=== PATIENT | female | born 1990 | race Caucasian/White ===

== ENCOUNTER 2016-10-14 13:07 | Inpatient (IN) | payer OTHER ==
[~2016-10-14] VITALS: Ht 154.9 cm; Wt 55.9 kg
[~2016-10-14 13:07] MED LIST: PRENTAB PO
[2016-10-14 13:09] VITALS: BP 126/58; PULSE 122; RESP 20; TEMP 99.1; O2SAT 97
--- NOTE | 2016-10-14 14:14 | PD ---
HPI Chief Complaint: Injury Time Seen by Provider: 14:14 Travel History International Travel<30 days: No Contact w/Intl Traveler<30days: No Traveled to known affect area: No History of Present Illness HPI 26-year-old female with PMH of IVDA, MRSA presents to the ED for evaluation of 3 day history of redness pain and swelling of the right foot. She has been ambulatory on the foot. Patient adamantly denies IV drug use in the area. She endorses fever and chills. Denies headache, dizziness, chest pain, shortness of breath, abdominal pain, nausea, vomiting. Complains of a "couple day" history of dysuria. Last injected Dilaudid 2 days ago. She's been treating at home with Tylenol and ibuprofen with no improvement of the symptoms. PFSH Past Medical History Cancer: No Cardiovascular Problems: No Diminished Hearing: No Endocrine: No Genitourinary: No Immune Disorder: No Musculoskeletal: No Neurologic: No Psychiatric: No Reproductive: No Respiratory: No Integumentary: Yes (CELLULITIS FROM IV DRUG USE) Immunizations Current: Yes ?: Not : 3 Para: 2 Miscarriage: 0 : 0 Past Surgical History Abdominal Surgery: No Cardiac Surgery: No Ear Surgery: No Endocrine Surgery: No Eye Surgery: No Genitourinary Surgery: No Gynecologic Surgery: No Oral Surgery: No Pacemaker: No Thoracic Surgery: No Other Surgery: Yes (I&D BILAT WRIST ABSCESSES) Social History Alcohol Use: No Tobacco Use: Yes (06/23 ppd) Substance Use: No (HX IV dilaudid DRUG USE-states daily) Allergies-Medications (Allergen,Severity, Reaction): Coded Allergies: Phenergan (Verified Allergy, Severe, HALLUCINATIONS, N&V, 10/14/16) Septra (Verified Allergy, Severe, HALLUCINATIONS, N&V, 10/14/16) Cipro (Verified Allergy, Intermediate, REDDENED ITCHY RASH, 10/14/16) *MDRO Multi-Drug Resistant Organism (Unverified Adverse Reaction, Unknown , 10/14/16) MRSA (fluid) - 08/2014 Reported Meds & Prescriptions Reported Meds & Active Scripts Active No Active Prescriptions or Reported Medications Review of Systems Except as stated in HPI: all other systems reviewed are Neg Physical Exam Narrative GENERAL: Well-nourished, well-developed anxious, tearful white female in no acute distress. SKIN: Focused skin assessment warm/dry. Multiple puncture wounds of the bilateral hands, wrists. Consistent with injection sites. HEAD: Normocephalic. EYES: No scleral icterus. No injection or drainage. NECK: Supple, trachea midline. No JVD or lymphadenopathy. CARDIOVASCULAR: Regular rate and rhythm without murmurs, gallops, or rubs. RESPIRATORY: Breath sounds clear and equal bilaterally. No accessory muscle use. GASTROINTESTINAL: Abdomen soft, non-tender, nondistended. Active bowel sounds. MUSCULOSKELETAL: No cyanosis. Patient is ambulatory and moves extremities spontaneously. FOCUSED RIGHT UPPER EXTREMITY EXAM: 2+ radial pulse there is a crusted puncture wound on the palmar aspect of the hand. There is superficial desquamation to the wrist and the underlying skin is pink and intact. No warmth, tenderness, edema. She maintains full, active, painless range of motion of the extremity. Cap refill less than 2 seconds. Sensation intact to light touch distally. FOCUSED RIGHT LOWER EXTREMITY EXAM: 2+ DP pulse via ultrasound. The dorsal aspect of the right foot is warm, erythematous, edematous and tender. There is a puncture wound on the proximal third of the foot surrounded by an area of fluctuance. No active drainage. The patient is able to wiggle the toes weekly. She is unable to flex the ankle secondary to pain. Cap refill less than 2 seconds. Sensation mildly diminished to light touch distally. BACK: Nontender without obvious deformity. No CVA tenderness. Data Data Last Documented VS Vital Signs Date Time Temp Pulse Resp B/P Pulse Ox O2 Delivery O2 Flow Rate FiO2 10/14/16 19:04 100.9 95 18 111/59 100 Room Air Orders Complete Blood Count With Diff (10/14/16 14:17) Blood Culture (10/14/16 14:17) Iv Access Insert/Monitor (10/14/16 14:17) Acetaminophen (Tylenol) (10/14/16 14:30) Comprehensive Metabolic Panel (10/14/16 14:17) Lactic Acid (10/14/16 14:17) Urinalysis - C+S If Indicated (10/14/16 14:17) Foot, Complete ([id number]) (10/14/16 14:23) Ed Urine Pregnancytest Poc (10/14/16 14:23) Piperacil-Tazo 4.5 Gm Premix (Zosyn 4.5 (10/14/16 14:23) Vancomycin Inj (Vancomycin Inj) (10/14/16 14:23) Ct Foot W Iv Contrast (10/14/16 ) Vascular Access Team Consult/P PRN (10/14/16 14:28) Sodium Chlor 0.9% 1000 Ml Inj (Ns 1000 M (10/14/16 15:00) Vascular Poc Ultrasound (10/14/16 ) Ketorolac Inj (Toradol Inj) (10/14/16 18:30) Hydromorphone Pf Inj (Dilaudid Pf Inj) (10/14/16 18:30) Potassium Chloride (Kcl) (10/14/16 18:45) Iohexol 350 Inj (Omnipaque 350 Inj) (10/14/16 19:00) Lidocai-Epi 1%-1:100,000 Inj (Xylocaine- (10/14/16 19:30) Abscess Culture And Gram Stain (10/14/16 19:26) Admit Order (Ed Use Only) (10/14/16 19:30) Labs Laboratory Tests Test 10/14/16 10/14/16 17:26 18:14 White Blood Count 5.1 TH/MM3 Red Blood Count 3.66 MIL/MM3 Hemoglobin 10.3 GM/DL Hematocrit 30.1 % Mean Corpuscular Volume 82.2 FL Mean Corpuscular Hemoglobin 28.0 PG Mean Corpuscular Hemoglobin 34.1 % Concent Red Cell Distribution Width 13.4 % Platelet Count 153 TH/MM3 Mean Platelet Volume 8.9 FL Neutrophils (%) (Auto) 87.5 % Lymphocytes (%) (Auto) 5.8 % Monocytes (%) (Auto) 4.6 % Eosinophils (%) (Auto) 1.5 % Basophils (%) (Auto) 0.6 % Neutrophils # (Auto) 4.5 TH/MM3 Lymphocytes # (Auto) 0.3 TH/MM3 Monocytes # (Auto) 0.2 TH/MM3 Eosinophils # (Auto) 0.1 TH/MM3 Basophils # (Auto) 0.0 TH/MM3 CBC Comment DIFF FINAL Differential Comment Sodium Level 137 MEQ/L Potassium Level 3.0 MEQ/L Chloride Level 102 MEQ/L Carbon Dioxide Level 26.8 MEQ/L Anion Gap 8 MEQ/L Blood Urea Nitrogen 7 MG/DL Creatinine 0.63 MG/DL Estimat Glomerular Filtration 113 ML/MIN Rate Random Glucose 87 MG/DL Lactic Acid Level 1.1 mmol/L Calcium Level 8.5 MG/DL Total Bilirubin 0.4 MG/DL Aspartate Amino Transf 42 U/L (AST/SGOT) Alanine Aminotransferase 81 U/L (ALT/SGPT) Alkaline Phosphatase 78 U/L Total Protein 7.2 GM/DL Albumin 3.1 GM/DL Urine Color YELLOW Urine Turbidity CLEAR Urine pH 6.5 Urine Specific [place] 1.034 Urine Protein TRACE mg/dL Urine Glucose (UA) NEG mg/dL Urine Ketones NEG mg/dL Urine Occult Blood SMALL Urine Nitrite NEG Urine Bilirubin NEG Urine Urobilinogen 4.0 MG/DL Urine Leukocyte Esterase NEG Urine RBC 2 /hpf Urine WBC 1 /hpf Urine Squamous Epithelial 2 /hpf Cells Urine Mucus MANY /lpf Microscopic Urinalysis Comment CULT NOT INDICATED MDM Medical Decision Making Medical Screen Exam Complete: Yes Emergency Medical Condition: Yes Differential Diagnosis Cellulitis versus abscess versus osteomyelitis versus sepsis versus other Narrative Course 26-year-old female with PMH of IVDA, MRSA presents to the ED for evaluation of 3 day history of redness pain and swelling of the right foot. She has been ambulatory on the foot. She endorses mild numbness of the toes of the right foot. Patient adamantly denies IV drug use in the area. She endorses fever and chills. Denies headache, dizziness, chest pain, shortness of breath, abdominal pain, nausea, vomiting. Complains of a "couple day" history of dysuria. Last injected Dilaudid 2 days ago. She's been treating at home with Tylenol and ibuprofen with no improvement of the symptoms. Vitals reviewed. 99.1, pulse 122, BP 126/58 on presentation. Physical exam reveals an anxious, tearful white female in no acute distress. Chest is clear to auscultation bilaterally, abdomen soft, nontender. There is a 2+ radial pulses in bilateral upper extremities. There is a crusted puncture wound on the palmar aspect of the left hand with superficial desquamation to the wrist. The underlying skin is pink and intact without signs of infection. She maintains full, active, painless R OM. Neurovascularly intact. There are 2+ DP ulcers in bilateral lower extremities. Dorsal aspect of the right foot is warm, erythematous, edematous and tender. There is an abscess on the dorsal aspect of the proximal third of the foot with without active drainage. Patient is able to weakly flex the toes. She is unable to flex the ankle secondary to pain. Neurovascularly intact. IV was attempted but unsuccessful. Patient is refusing any more attempts by the nurses. The vascular access team has been consulted but has several other patients to attend to. IV access was eventually obtained. She was placed on continuous monitoring. Blood cultures were obtained. Patient was administered 1 L normal saline bolus, IV Toradol, 0.5 mg Dilaudid, vancomycin and Zosyn. CBC: WBC 5.1, hemoglobin 10.3 CMP: Potassium 3.0. AST 42, ALT 81 Lactic acid 1.1. Urinary: No culture indicated X-ray: Soft tissue swelling over the dorsum of the midfoot with no underlying bony abnormality per radiology read. CT: 2.4 cm x 4 cm focal abscess of the soft tissues with edema Patient was administered 40meq potassium by mouth. I attempted to perform an I& D of the abscess which the patient initially consented to but then ultimately refused. Will admit to medicine for continued IV antibiotics. I spoke with Dr. Mcgarry who agrees to accept the patient to the medicine service. Please see medicine notes for disposition. 2017: Patient diabetes no longer working. Call placed to the vascular access team. May require a PICC line on inpatient basis. Sepsis Criteria SIRS Criteria (2 or more): Heart rate over 90 Sepsis Criteria (SIRS+source): Infect source susp/known Diagnosis Primary Impression: Abscess of right foot Additional Impressions: Cellulitis of right foot IV drug user Scripts No Active Prescriptions or Reported Meds Melly Roth Oct 14, 2016 14:14 Cellulitis of right foot IV drug user Scripts No Active Prescriptions or Reported Meds Melly Roth Oct 14, 2016 14:14
[2016-10-14] MEDS ORDERED: VANCOMYCIN INJ 1,000 MG in SODIUM CHLOR 0.9% 250 ML INJ 250 ML IV STA (14:23)
[2016-10-14] MEDS ORDERED: PIPERACIL-TAZO 4.5 GM PREMIX 100 ML IV STA (14:23)
[2016-10-14 14:27] VITALS: TEMP 100
[2016-10-14] MEDS ORDERED: ACETAMINOPHEN 325 MG TAB PO ONE (14:30)
[2016-10-14] MEDS ORDERED: SODIUM CHLOR 0.9% 1000 ML INJ 1,000 ML IV ONE (15:00)
--- NOTE | 2016-10-14 16:27 | RADRPT ---
EXAM DATE/TIME: 10/14/2016 15:25 [facility] COMPARISON: No previous studies available for comparison. INDICATIONS : Right foot pain, redness, and swelling. Patient states she has a history of MRSA. MEDICAL HISTORY : MRSA. SURGICAL HISTORY : None. ENCOUNTER: Initial ACUITY: 1 week PAIN SCORE: 10/10 LOCATION: Right foot. FINDINGS: Three view examination of the right foot demonstrates no acute fracture or malalignment. There is sof t tissue swelling over the dorsum of the foot with no periosteal new bone formation or destructive ch stan[place]. The tarsal bones appear intact. The interphalangeal and metatarsophalangeal joints are intact. The calcaneus is intact. Bony mineralization is normal. CONCLUSION: Soft tissue swelling over the dorsum of the midfoot with no underlying bony abnormali ty. Roman Briggs MD on October 14, 2016 at 16:25 Board Certified Radiologist. This report was verified electronically.
[2016-10-14 16:55] VITALS: TEMP 99.5
[2016-10-14 17:51] LABS: AUTOMATED NEUTROPHIL # 4.5 TH/MM3 (1.8-7.7); BASOPHIL % 0.6 % (0.0-2.0); EOSINOPHIL # 0.1 TH/MM3 (0-0.4); EOSINOPHIL % 1.5 % (0.0-4.0); HEMATOCRIT 30.1 % (35.0-46.0); HEMO FLAGS DIFF FINAL; LYMPH % 5.8 % (9.0-44.0); LYMPHOCYTE # 0.3 TH/MM3 (1.0-4.8); MEAN CELL VOLUME 82.2 FL (80.0-100.0); MEAN CORPUSCULAR HGB CONC 34.1 % (32.0-36.0); MONO % 4.6 % (0.0-8.0); NEUT % 87.5 % (16.0-70.0); PLATELET COUNT 153 TH/MM3 (150-450); RED BLOOD COUNT 3.66 MIL/MM3 (4.00-5.30); RED CELL DISTRIBUTION WIDTH 13.4 % (11.6-17.2); WHITE BLOOD COUNT 5.1 TH/MM3 (4.0-11.0)
[2016-10-14 18:00] LABS: ANION GAP 8 MEQ/L (5-15); AST (GOT) 42 U/L (15-37); BICARBONATE 26.8 MEQ/L (21.0-32.0); BLOOD UREA NITROGEN 7 MG/DL (7-18); CHLORIDE 102 MEQ/L (98-107); GLOMERULAR FILTRATION RATE 113 ML/MIN (>89); SODIUM (NA) 137 MEQ/L (136-145)
[2016-10-14 18:03] LABS: ALKALINE PHOSPHATASE 78 U/L (45-117); ALT (GPT) 81 U/L (10-53); TOTAL BILIRUBIN ADULT 0.4 MG/DL (0.2-1.0)
[2016-10-14] MEDS ORDERED: KETOROLAC TROMETHAMINE 30 MG/ML (IVP) VIAL IV PUSH ONE (18:30)
[2016-10-14] MEDS ORDERED: HYDROmorphone HCL PF 1 MG/ML VIAL IV PUSH ONE (18:30)
[2016-10-14 18:31] VITALS: BP 112/56; PULSE 90; RESP 20; O2SAT 97
[2016-10-14] MEDS ORDERED: POTASSIUM CHLORIDE 20 MEQ CONTROLLED RELEASE TAB PO ONE (18:45)
[2016-10-14 18:57] LABS: BLOOD, URINE SMALL (NEG); COMMENT (UR) CULT NOT INDICATED; CULTURE IF INDICATED CULT NOT INDICATED; GLUCOSE,URINE NEG (NEG); KETONE, URINE NEG (NEG); MUCUS URINE MANY /lpf (OCC); NITRITE,URINE NEG (NEG); PH, URINE 6.5 (5.0-8.5); SQUAMOUS EPITHELIAL CELL URINE 2 /hpf (0-5); URINE COLOR YELLOW (YELLW/STRAW)
[2016-10-14] MEDS ORDERED: IOHEXOL 350 MG/ML 10 ML VIAL (for RAD DIAG) IV ONE (19:00)
[2016-10-14 19:04] VITALS: BP 111/59; PULSE 95; RESP 18; TEMP 100.9; O2SAT 100
--- NOTE | 2016-10-14 19:25 | RADRPT ---
EXAM DATE/TIME: 10/14/2016 18:42 [facility] COMPARISON: No previous studies available for comparison. INDICATIONS : Right ankle and foot swollen and painful. IV CONTRAST: 80 cc Omnipaque 350 (iohexol) IV RADIATION DOSE: 6.11 CTDIvol (mGy) MEDICAL HISTORY : IV drug abuser SURGICAL HISTORY : right foot surgery ENCOUNTER: Initial ACUITY: 1 day PAIN SCALE: 8/10 LOCATION: Right foot TECHNIQUE: Volumetric scanning of the foot was performed. Using automated exposure control and adjustment of th e mA and/or kV according to patient size, radiation dose was kept as low as reasonably achievable to obtain optimal diagnostic quality images. FINDINGS: There is focal lobulated fluid collection in the lateral aspect of the patient's forefoot measur es 2.4 cm in oblique diameter and extends for approximately 4 cm in AP diameter with surrounding sign ificant edema suspicious for focal abscess. No definite fracture is seen for technique. CONCLUSION: Findings are suspicious for focal abscess in the subcutaneous tissues with surrounding inflammatory p rocess. K. Richard Beyer MD on October 14, 2016 at 19:21 Board Certified Radiologist. This report was verified electronically.
[2016-10-14] MEDS ORDERED: LIDOCAINE 1%/EPINEPHrine 1:100,000 SOLN 20 ML VIAL INFIL ONE (19:30)
[2016-10-14] MEDS ORDERED: Vancomycin Consult Pharmacy 1 EA OTHER SCH (20:00)
[2016-10-14] MEDS ORDERED: NALOXONE HCL 0.4 MG/ML AMP IV PRN (20:00)
[2016-10-14] MEDS ORDERED: SODIUM CHLORIDE 0.9% FLUSH 10 ML FLUSH IV FLUSH PRN (20:00)
[2016-10-14] MEDS ORDERED: CLINDAMYCIN 150 MG CAP PO ONE (20:30)
[2016-10-14] MEDS: SODIUM CHLORIDE 0.9% FLUSH 10 ML FLUSH IV FLUSH SCH (22:22)
[2016-10-14 22:51] VITALS: BP 104/48; PULSE 88; RESP 18; TEMP 97.6; O2SAT 97
[2016-10-14] MEDS ORDERED: ACETAMINOPHEN 500 MG CPLT PO PRN (23:00)
[2016-10-14] MEDS: KETOROLAC TROMETHAMINE 30 MG/ML (IVP) VIAL IV PUSH PRN (23:11)
[2016-10-14] MEDS: PIPERACIL-TAZO 4.5 GM PREMIX 100 ML IV SCH (23:24)
[2016-10-14] MEDS ORDERED: ONDANSETRON HCL 4 MG/2 ML VIAL IV PUSH PRN (23:30)
--- NOTE | 2016-10-15 05:48 | HHI.HP ---
[facility] No Primary Care Physician Admission Diagnosis abscess and cellulitis of right foot Diagnoses: Chief Complaint: "It's my foot" Travel History International Travel<30 Days: No Contact w/Intl Traveler <30 Da: No Traveled to Known Affected Are: No History of Present Illness This is a 24-year-old female with PMH of IV drug abuse. Patient reports approximately 2-3 weeks ago she was treated for MRSA infection of the right hand in [place] reports she was admitted for 3 days on IV antibiotics and then was sent home with antibiotic pills is unsure what she was taking. Patient reports she's been treated multiple times for skin abscesses, "too many to count." Presents to the emergency department today with because of right foot/ ankle abscess. Patient reports that this is an injection site over 5 years ago not a recent injection site. She says she's had this one for approximately a week, reports this started as a bump then a week ago opened up and has been draining. Location right foot/ankle region. She says it's extremely painful sharp stabbing type of pain. Palpation or movement makes it worse. Nothing makes it better. She denies streaking of the redness around this abscess. Patient reports subjective fevers and chills at home starting Tuesday, 2016. Patient denies nausea vomiting diarrhea constipation shortness of breath or chest pain. Patient refused I&D offered by the ED provider. Review of Systems Except as stated in HPI: all other systems reviewed are Neg Past Family Social History Past Medical History Multiple skin abscesses, IV drug abuse Past Surgical History heal cord lengthening R heal Multiple skin abscess drainages, "too may to count" Reported Medications No Active Prescriptions or Reported Medications Allergies: Coded Allergies: Phenergan (Verified Allergy, Severe, HALLUCINATIONS, N&V, 10/14/16) Septra (Verified Allergy, Severe, HALLUCINATIONS, N&V, 10/14/16) Cipro (Verified Allergy, Intermediate, REDDENED ITCHY RASH, 10/14/16) *MDRO Multi-Drug Resistant Organism (Unverified Adverse Reaction, Unknown , 10/14/16) MRSA (fluid) - 08/2014 Active Ordered Medications Current Medications Medications (Trade) Dose Ordered Sig/Deborah Route Start Time Stop Time Status Last Admin (NS Flush) 2 ml UNSCH PRN IV FLUSH 10/14/16 20:00 (NS Flush) 2 ml BID IV FLUSH 10/14/16 21:00 10/14/16 22:22 Naloxone HCl 0.4 mg 0.4 mg UNSCH PRN IV 10/14/16 20:00 Pharmacy Profile Note 0 ml @ 0 mls/hr UNSCH OTHER 10/14/16 20:00 Piperacillin Sod/ Tazobactam Sod 100 ml @ 200 mls/hr Q6H IV 10/15/16 00:00 (Vancomycin Inj/ NS 250 ml Inj) 258 ml @ 250 mls/hr Q12H IV 10/15/16 06:00 Miscellaneous Information SPECIFIC LAB TO BE [facility]... ONCE ONCE .XX 10/16/16 05:45 10/16/16 05:46 (Toradol Inj) 15 mg Q6HR PRN IV PUSH 10/14/16 23:00 10/14/16 23:11 (Tylenol) 500 mg Q6H PRN PO 10/14/16 23:00 10/15/16 03:26 (Zofran Inj) 4 mg Q6HR PRN IV PUSH 10/14/16 23:30 Family History Denies family medical history including diabetes, CAD, cancer or anesthesia reaction Social History tobacco use smokes 0.5 PPD denies ETOH use admits to IV drug abuse reports she started using again 4 months ago Physical Exam Vital Signs Vital Signs Date Time Temp Pulse Resp B/P Pulse Ox O2 Delivery O2 Flow Rate FiO2 10/14/16 22:51 97.6 88 18 104/48 97 10/14/16 19:04 100.9 95 18 111/59 100 Room Air 10/14/16 18:31 90 20 112/56 97 Room Air 10/14/16 16:55 99.5 10/14/16 14:27 100.0 10/14/16 14:24 98 18 100 Room Air 10/14/16 13:09 99.1 122 20 126/58 97 Room Air Physical Exam GENERAL: This is a well-nourished, well-developed patient, appears painful SKIN: Erythema edema right foot/ankle area HEAD: Atraumatic. Normocephalic. No temporal or scalp tenderness. EYES: Extraocular motions intact. No scleral icterus. No injection or drainage. CARDIOVASCULAR: Regular rate and rhythm without murmurs, gallops, or rubs. RESPIRATORY: Clear to auscultation. Breath sounds equal bilaterally. No wheezes , rales, or rhonchi. GASTROINTESTINAL: Abdomen soft, non-tender, nondistended. MUSCULOSKELETAL: No calf tenderness. Negative Homans sign bilaterally. NEUROLOGICAL: Awake and alert. Motor and sensory grossly within normal limits. Five out of 5 muscle strength in all muscle groups. Normal speech. Laboratory Laboratory Tests Test 10/14/16 10/14/16 17:26 18:14 White Blood Count 5.1 Red Blood Count 3.66 Hemoglobin 10.3 Hematocrit 30.1 Mean Corpuscular Volume 82.2 Mean Corpuscular Hemoglobin 28.0 Mean Corpuscular Hemoglobin 34.1 Concent Red Cell Distribution Width 13.4 Platelet Count 153 Mean Platelet Volume 8.9 Neutrophils (%) (Auto) 87.5 Lymphocytes (%) (Auto) 5.8 Monocytes (%) (Auto) 4.6 Eosinophils (%) (Auto) 1.5 Basophils (%) (Auto) 0.6 Neutrophils # (Auto) 4.5 Lymphocytes # (Auto) 0.3 Monocytes # (Auto) 0.2 Eosinophils # (Auto) 0.1 Basophils # (Auto) 0.0 CBC Comment DIFF FINAL Differential Comment Sodium Level 137 Potassium Level 3.0 Chloride Level 102 Carbon Dioxide Level 26.8 Anion Gap 8 Blood Urea Nitrogen 7 Creatinine 0.63 Estimat Glomerular Filtration 113 Rate Random Glucose 87 Lactic Acid Level 1.1 Calcium Level 8.5 Total Bilirubin 0.4 Aspartate Amino Transf 42 (AST/SGOT) Alanine Aminotransferase 81 (ALT/SGPT) Alkaline Phosphatase 78 Total Protein 7.2 Albumin 3.1 Urine Color YELLOW Urine Turbidity CLEAR Urine pH 6.5 Urine Specific [place] 1.034 Urine Protein TRACE Urine Glucose (UA) NEG Urine Ketones NEG Urine Occult Blood SMALL Urine Nitrite NEG Urine Bilirubin NEG Urine Urobilinogen 4.0 Urine Leukocyte Esterase NEG Urine RBC 2 Urine WBC 1 Urine Squamous Epithelial 2 Cells Urine Mucus MANY Microscopic Urinalysis Comment CULT NOT INDICATED Date/Time Procedure Status Source Growth 10/14/16 17:28 Aerobic Blood Culture Received Blood Peripheral Pending 10/14/16 17:28 Anaerobic Blood Culture Received Blood Peripheral Pending Result Diagram: 10/14/16 1726 10/14/16 1726 Imaging Last Impressions Foot X-Ray 10/14/16 1423 Signed Impressions: Service Date/Time: September 15:25 - CONCLUSION: Soft tissue swelling over the dorsum of the midfoot with no underlying bony abnormality. Roman Briggs MD Lower Extremity CT 10/14/16 0000 Signed Impressions: Service Date/Time: September 18:42 - CONCLUSION: Findings are suspicious for focal abscess in the subcutaneous tissues with surrounding inflammatory process. Danny Beyer MD Assessment and Plan Problem List: (1) Abscess of right foot ICD Code: L02.611 Status: Acute (2) Cellulitis of right foot ICD Code: L03.115 Status: Acute (3) IV drug user ICD Code: F19.90 Status: Acute (4) Hypokalemia ICD Code: E87.6 Status: Acute Assessment and Plan This is a 24-year-old female with PMH of IV drug abuse. Patient reports approximately 2-3 weeks ago she was treated for MRSA infection of the right hand in [place] reports she was admitted for 3 days on IV antibiotics and then was sent home with antibiotic pills is unsure what she was taking. Patient reports she's been treated multiple times for skin abscesses, "too many to count." Presents to the emergency department today with because of right foot/ ankle abscess. Wishes been present 1 week R foot abscess/cellulitis CT right lower extremity reveals: Findings are suspicious for focal abscess in the subcutaneous tissues with surrounding inflammatory process. Right foot x-ray reviewed by myself as well as Dr. Mcgarry and reveals: Soft tissue swelling over the dorsum of the midfoot with no underlying bony abnormality patient refused I&D in ER consult Podiatry Patient started on vancomycin and Zosyn IV in emergency department will continue with pharmacy to dose vancomycin Blood cultures 2 obtained and pending Hypokalemia patient treated with 40 MEQ potassium by mouth and emergency department Recheck in a.m. Also check magnesium, Gureo IV drug abuse counselled instructed to abstain Tobacco abuse counselled to abstain DVT porphylasis with heparin Discussed with ER provider, nursing and patient Written by Alessandra Thacker, acting as scribe for Dr. Mcgarry on 10/15/16 at 05: 45. This note was transcribed by scribe [Alessandra Thacker]. I, Dr. Jarad Mcgarry personally performed the history, physical exam, and medical decision making; and confirmed the accuracy of the information in the transcribed note. Authenticated by Dr. Jarad Mcgarry on 10/15/16 at 05:45. Alessandra Thacker Oct 15, 2016 05:48 Jarad Mcgarry MD Oct 15, 2016 08:04
[2016-10-15] MEDS: VANCOMYCIN INJ 800 MG in SODIUM CHLOR 0.9% 250 ML INJ 250 ML IV SCH ×2 (06:00→18:00)
[2016-10-15] MEDS: PIPERACIL-TAZO 4.5 GM PREMIX 100 ML IV SCH ×3 (06:00→18:00)
[2016-10-15] MEDS: HYDROmorphone HCL PF 1 MG/ML VIAL IV PUSH PRN ×3 (06:25→20:22)
[2016-10-15 07:01] LABS: AUTOMATED NEUTROPHIL # 1.7 TH/MM3 (1.8-7.7); BASOPHIL % 0.8 % (0.0-2.0); EOSINOPHIL % 1.4 % (0.0-4.0); HEMATOCRIT 33.8 % (35.0-46.0); HEMO FLAGS DIFF FINAL; LYMPH % 18.8 % (9.0-44.0); LYMPHOCYTE # 0.5 TH/MM3 (1.0-4.8); MEAN CORPUSCULAR HEMOGLOBIN 27.1 PG (27.0-34.0); MEAN CORPUSCULAR HGB CONC 32.7 % (32.0-36.0); MONO % 7.3 % (0.0-8.0); NEUT % 71.7 % (16.0-70.0); PLATELET COUNT 150 TH/MM3 (150-450); RED BLOOD COUNT 4.07 MIL/MM3 (4.00-5.30); RED CELL DISTRIBUTION WIDTH 13.6 % (11.6-17.2); WHITE BLOOD COUNT 2.4 TH/MM3 (4.0-11.0)
[2016-10-15 07:28] LABS: BICARBONATE 25.9 MEQ/L (21.0-32.0); POTASSIUM 3.6 MEQ/L (3.5-5.1)
[2016-10-15 07:47] VITALS: BP 106/79; PULSE 62; RESP 18; TEMP 98.7; O2SAT 99
[2016-10-15] MEDS: REMOVE OLD PATCH T-DERMAL SCH (09:00)
[2016-10-15] MEDS ORDERED: NICOTINE 14 MG/24 HR PATCH T-DERMAL PRN (09:00)
[2016-10-15] MEDS: SODIUM CHLORIDE 0.9% FLUSH 10 ML FLUSH IV FLUSH SCH ×2 (10:40→20:11)
[2016-10-15] MEDS ORDERED: PROPOFOL 200 MG/20 ML AMP IV ONE (12:00)
[2016-10-15] MEDS ORDERED: LACTATED RINGER'S 1000 ML INJ 1,000 ML IV ONE (12:00)
[2016-10-15] MEDS: KETOROLAC TROMETHAMINE 30 MG/ML (IVP) VIAL IV PUSH PRN ×2 (13:02→19:02)
[2016-10-15] MEDS ORDERED: HEPARIN SODIUM - SQ 10,000 UNITS/ML VIAL SQ SCH (14:00)
[2016-10-15] MEDS ORDERED: LIDOCAINE HCL 2% 50 ML VIAL ONE (14:53)
[2016-10-15] MEDS ORDERED: BUPIVACAINE HCL PF 0.5% 30 ML VIAL ONE (14:53)
[2016-10-15] MEDS ORDERED: ACETAMINOPHEN 1000 MG/100 ML VIAL IV ONE (15:27)
[2016-10-15] MEDS ORDERED: FAMOTIDINE 20 MG/2 ML VIAL ONE (15:27)
[2016-10-15] MEDS ORDERED: MIDAZOLAM HCL 2 MG/2 ML VIAL ONE ×2 (15:27→16:51)
[2016-10-15] MEDS ORDERED: NEOMYCIN/POLYMYXIN 1 ML G.U. IRRIGANT TOPICAL ONE (16:19)
[2016-10-15] MEDS ORDERED: DO NOT ADM ANY ANTICOAGULANT DRUGS PRN (16:42)
[2016-10-15] MEDS ORDERED: *morphine SULFATE 8 MG/ML PERIprocedure ONLY ONE ×2 (16:48→17:40)
[2016-10-15] MEDS ORDERED: fentaNYL CITRATE 250 MCG/5 ML AMP ONE (16:51)
--- NOTE | 2016-10-15 17:27 | MB ---
cc: ELIANA IRWIN DPM DATE OF CONSULTATION 10/15/16 TIME OF CONSULT 1600 hours DATE OF 1990 REASON FOR CONSULTATION Right foot abscess. HISTORY OF PRESENT ILLNESS The patient is a 24-year-old female with past medical history of regular IV abuse. The patient report about two to 3 weeks ago she was treated for MRSA in her right hand, admitted for IV antibiotics and sent home on oral pills. She reports some multiple histories of skin abscesses. She has significant pain when seen at bedside this afternoon. She had refused an I&D in the ED previously. REVIEW OF SYSTEMS All negative. PAST MEDICAL HISTORY IV drug abuse. PAST SURGICAL HISTORY Heel cord lengthening right, multiple I&D is due to abscess. MEDICATIONS Denied. ALLERGIES PHENERGAN, SEPTRA, CIPRO. PHYSICAL EXAMINATION DIRECTED EXAMINATION: On the right foot DP is diminished. PT palpable. CFTs 1-5 on the right is less than 3 seconds. Significant right dorsal foot edema, erythema, bullae abscess and hematoma noted on the right lateral dorsal foot. No crepitus of the ankle joint. Muscle strength +5/5 and ____ protective sensation intact. LABORATORY DATA On 10/15/2016 WBC of 2.4, RBC of 4.0, H&H 11.[address] foot [address] with contrast completed 10/14/[address] Beyer suspicious abscess on the subcutaneous tissues with surrounding inflammatory process. ASSESSMENT/PLAN Right foot abscess. PLAN Our plan is to take patient to the OR, drain the abscess. I did discuss wound dehiscence, ulceration, a wound status post the incision as well as multiple washouts may be necessary. She is aware that there may be some numbness at the incision site. Additional risks, benefits, pros and cons were discussed with the patient. She freely consents surgical intervention. No guarantees were given or implied. All questions answered. Eliana Irwin DPM SR/EO /4:44 PM /5:08 PM
[2016-10-15 19:01] VITALS: BP 103/62; PULSE 71; RESP 18; TEMP 97.5; O2SAT 100
[2016-10-15 20:00] VITALS: BP_SYST 117; BP_SYST 95; BP_DIAS 51; BP_DIAS 70; PULSE 69; RESP 20; TEMP 97; O2SAT 100
[2016-10-15 20:15] VITALS: PULSE 65
[2016-10-16] VITALS (7 sets, daily range): BP systolic 96–114; BP diastolic 36–68; PULSE 69–88; RESP 16–22; TEMP 97.7–97.9; O2SAT 93–100
[2016-10-16] MEDS: PIPERACIL-TAZO 4.5 GM PREMIX 100 ML IV SCH ×4 (00:59→17:42)
[2016-10-16] MEDS: KETOROLAC TROMETHAMINE 30 MG/ML (IVP) VIAL IV PUSH PRN (01:00)
[2016-10-16] MEDS: HYDROmorphone HCL PF 1 MG/ML VIAL IV PUSH PRN ×5 (01:01→21:59)
[2016-10-16] MEDS ORDERED: PHARMACY ORDERED LAB ONE (05:45)
[2016-10-16] MEDS: REMOVE OLD PATCH T-DERMAL SCH (09:00)
[2016-10-16] MEDS: SODIUM CHLORIDE 0.9% FLUSH 10 ML FLUSH IV FLUSH SCH ×2 (09:00→22:00)
--- NOTE | 2016-10-16 09:10 | PD.POD ---
Subjective Podiatric Problems s/p R foot I and D DOS 10/16/16 No pain at bedside this am. + throbbing when trying to walk or hang it down Pain scale used: 0-10 numeric scale Pain score: 0 Past Med/Surg/Social History Social History Smoking Status: Current Every Day Smoker Objective Vital Signs Vital Signs Date Time Temp Pulse Resp B/P Pulse Ox O2 Delivery O2 Flow Rate FiO2 10/16/16 09:01 97.9 84 18 108/64 100 10/16/16 04:00 97.7 70 20 96/52 93 10/16/16 01:00 70 16 96/64 10/15/16 20:15 65 10/15/16 20:00 97.0 69 20 95/51 100 117/70 10/15/16 19:01 97.5 71 18 103/62 100 10/15/16 18:00 72 14 123/65 99 Room Air 10/15/16 17:45 79 17 111/58 100 Room Air 10/15/16 17:30 63 14 100/54 99 Room Air 10/15/16 17:15 62 22 118/55 100 Room Air 10/15/16 17:00 76 15 122/58 100 Room Air 10/15/16 16:45 97.4 81 14 121/55 100 Room Air Coded Allergies: Phenergan (Verified Allergy, Severe, HALLUCINATIONS, N&V, 10/14/16) Septra (Verified Allergy, Severe, HALLUCINATIONS, N&V, 10/14/16) Cipro (Verified Allergy, Intermediate, REDDENED ITCHY RASH, 10/14/16) *MDRO Multi-Drug Resistant Organism (Unverified Adverse Reaction, Unknown , 10/14/16) MRSA (fluid) - 08/2014 Other Results Laboratory Tests Test 10/14/16 10/14/16 10/15/16 17:26 18:14 06:44 Lactic Acid Level 1.1 mmol/L Total Bilirubin 0.4 MG/DL Aspartate Amino Transf 42 U/L (AST/SGOT) Alanine Aminotransferase 81 U/L (ALT/SGPT) Alkaline Phosphatase 78 U/L Total Protein 7.2 GM/DL Albumin 3.1 GM/DL Urine Color YELLOW Urine Turbidity CLEAR Urine pH 6.5 Urine Specific [place] 1.034 Urine Protein TRACE mg/dL Urine Glucose (UA) NEG mg/dL Urine Ketones NEG mg/dL Urine Occult Blood SMALL Urine Nitrite NEG Urine Bilirubin NEG Urine Urobilinogen 4.0 MG/DL Urine Leukocyte Esterase NEG Urine RBC 2 /hpf Urine WBC 1 /hpf Urine Squamous Epithelial 2 /hpf Cells Urine Mucus MANY /lpf Microscopic Urinalysis Comment CULT NOT INDICATED White Blood Count 2.4 TH/MM3 Red Blood Count 4.07 MIL/MM3 Hemoglobin 11.0 GM/DL Hematocrit 33.8 % Mean Corpuscular Volume 83.0 FL Mean Corpuscular Hemoglobin 27.1 PG Mean Corpuscular Hemoglobin 32.7 % Concent Red Cell Distribution Width 13.6 % Platelet Count 150 TH/MM3 Mean Platelet Volume 8.7 FL Neutrophils (%) (Auto) 71.7 % Lymphocytes (%) (Auto) 18.8 % Monocytes (%) (Auto) 7.3 % Eosinophils (%) (Auto) 1.4 % Basophils (%) (Auto) 0.8 % Neutrophils # (Auto) 1.7 TH/MM3 Lymphocytes # (Auto) 0.5 TH/MM3 Monocytes # (Auto) 0.2 TH/MM3 Eosinophils # (Auto) 0.0 TH/MM3 Basophils # (Auto) 0.0 TH/MM3 CBC Comment DIFF FINAL Differential Comment Sodium Level 140 MEQ/L Potassium Level 3.6 MEQ/L Chloride Level 107 MEQ/L Carbon Dioxide Level 25.9 MEQ/L Anion Gap 7 MEQ/L Blood Urea Nitrogen 8 MG/DL Creatinine 0.58 MG/DL Estimat Glomerular Filtration 124 ML/MIN Rate Random Glucose 86 MG/DL Calcium Level 8.7 MG/DL Magnesium Level 2.0 MG/DL Exam-Podiatry Dermatological Exam Ulcers: Location/Measurements RLE sensate to digit1,2 4, and 5th. + number to the 3rd. Passive motion at the ankle and digits. CFT < 3 sec 1-5. Intact dressing and no strikethrough to outer dressings. Assessment & Plan Diagnosis: (1) Abscess of right foot Status: Acute (2) Cellulitis of right foot Status: Acute A/P s/p Right foot I and D DOS 10/15/16 Plan for dressing change on 10/17/16 Plan for d/c in the next 1-2 days with abx pending cultures. F/U with Dr Irwin with in 1 week of d/c Eliana Irwin DPM Oct 16, 2016 09:10
[2016-10-16] MEDS: VANCOMYCIN INJ 800 MG in SODIUM CHLOR 0.9% 250 ML INJ 250 ML IV SCH ×2 (09:39→19:17)
--- NOTE | 2016-10-16 23:48 | HHI.PR ---
Subjective Remarks Patient seen this morning. She reports that pain in right foot. There, requesting IV antibiotics. Denies any chest pain or shortness of breath. Objective Vital Signs Date Time Temp Pulse Resp B/P Pulse Ox O2 Delivery O2 Flow Rate FiO2 10/16/16 20:00 97.9 88 22 113/36 100 10/16/16 17:50 99 21 10/16/16 12:12 97.7 69 18 114/68 100 10/16/16 11:30 99 21 10/16/16 09:01 97.9 84 18 108/64 100 10/16/16 04:00 97.7 70 20 96/52 93 10/16/16 01:00 70 16 96/64 I/O 10/15/16 10/15/16 10/15/16 10/16/16 10/16/16 10/16/16 07:00 15:00 23:00 07:00 15:00 23:00 Intake Total 250 ml 640 ml Output Total 10 ml Balance 250 ml 630 ml Intake Oral 240 ml IV Total 250 ml Other 400 ml Output Estimated Blood Loss 10 ml # Voids 2 3 1 4 # Bowel Movements 0 0 Result Diagram: 10/15/1644 10/15/16 06 Objective Remarks GENERAL: sittign up in bed. NAD. AAOx3 SKIN: Warm and dry. HEAD: Normocephalic. EYES: No scleral icterus. No injection or drainage. NECK: Supple, trachea midline. No JVD or lymphadenopathy. CARDIOVASCULAR: Regular rate and rhythm without murmurs, gallops, or rubs. RESPIRATORY: Breath sounds equal bilaterally. No accessory muscle use. GASTROINTESTINAL: Abdomen soft, non-tender, nondistended. MUSCULOSKELETAL: No cyanosis, or edema. Right foot dressed, dressing intact. cap refil intact. BACK: Nontender without obvious deformity. No CVA tenderness. A/P Assessment and Plan This is a 24-year-old female with PMH of IV drug abuse. Patient reports approximately 2-3 weeks ago she was treated for MRSA infection of the right hand in [place] reports she was admitted for 3 days on IV antibiotics and then was sent home with antibiotic pills is unsure what she was taking. Patient reports she's been treated multiple times for skin abscesses, "too many to count." Presents to the emergency department today with because of right foot/ ankle abscess. Wishes been present 1 week //R foot abscess/cellulitis CT right lower extremity reveals: Findings are suspicious for focal abscess in the subcutaneous tissues with surrounding inflammatory process. Right foot x-ray reviewed by myself as well as Dr. Mcgarry and reveals: Soft tissue swelling over the dorsum of the midfoot with no underlying bony abnormality patient refused I&D in ER consult Podiatry Patient started on vancomycin and Zosyn IV in emergency department will continue with pharmacy to dose vancomycin -s/p R foot I+D by podiatry, appreciate assist. cont iv abx. await cultures. //Hypokalemia improved after replacement. //IV drug abuse counselled instructed to abstain //Tobacco abuse counselled to abstain //DVT prophylasis with heparin Lukas Ness MD Oct 16, 2016 23:48
[2016-10-17] VITALS: BP 96/58; PULSE 80; RESP 18; TEMP 97.3; O2SAT 100
[2016-10-17 00:27] VITALS: PULSE 69
[2016-10-17] MEDS: HYDROmorphone HCL PF 1 MG/ML VIAL IV PUSH PRN ×2 (02:12→08:19)
[2016-10-17] MEDS: KETOROLAC TROMETHAMINE 30 MG/ML (IVP) VIAL IV PUSH PRN (02:12)
[2016-10-17] MEDS: PIPERACIL-TAZO 4.5 GM PREMIX 100 ML IV SCH ×2 (05:25)
[2016-10-17] MEDS ORDERED: PHARMACY ORDERED LAB ONE (05:45)
[2016-10-17] MEDS: SODIUM CHLORIDE 0.9% FLUSH 10 ML FLUSH IV FLUSH SCH (08:19)
[2016-10-17 08:45] VITALS: BP 111/69; PULSE 70; RESP 18; TEMP 98.2; O2SAT 95
[2016-10-17 10:05] VITALS: O2SAT 98
--- NOTE | 2016-10-17 11:48 | PD.POD ---
Subjective Podiatric Problems s/p R foot I and D DOS 10/14/16 + throbbing when trying to walk or hang it down Pain scale used: 0-10 numeric scale Pain score: 5 Past Med/Surg/Social History Social History Smoking Status: Current Every Day Smoker Objective Vital Signs Vital Signs Date Time Temp Pulse Resp B/P Pulse Ox O2 Delivery O2 Flow Rate FiO2 10/17/16 10:05 98 21 10/17/16 08:45 98.2 70 18 111/69 95 10/17/16 00:27 69 10/17/16 00:00 97.3 80 18 96/58 100 10/16/16 20:00 97.9 88 22 113/36 100 10/16/16 17:50 99 21 10/16/16 12:12 97.7 69 18 114/68 100 Coded Allergies: Phenergan (Verified Allergy, Severe, HALLUCINATIONS, N&V, 10/14/16) Septra (Verified Allergy, Severe, HALLUCINATIONS, N&V, 10/14/16) Cipro (Verified Allergy, Intermediate, REDDENED ITCHY RASH, 10/14/16) *MDRO Multi-Drug Resistant Organism (Unverified Adverse Reaction, Unknown , 10/14/16) MRSA (fluid) - 08/2014 Other Results Laboratory Tests Test 10/14/16 10/14/16 10/15/16 17:26 18:14 06:44 Lactic Acid Level 1.1 mmol/L Total Bilirubin 0.4 MG/DL Aspartate Amino Transf 42 U/L (AST/SGOT) Alanine Aminotransferase 81 U/L (ALT/SGPT) Alkaline Phosphatase 78 U/L Total Protein 7.2 GM/DL Albumin 3.1 GM/DL Urine Color YELLOW Urine Turbidity CLEAR Urine pH 6.5 Urine Specific [place] 1.034 Urine Protein TRACE mg/dL Urine Glucose (UA) NEG mg/dL Urine Ketones NEG mg/dL Urine Occult Blood SMALL Urine Nitrite NEG Urine Bilirubin NEG Urine Urobilinogen 4.0 MG/DL Urine Leukocyte Esterase NEG Urine RBC 2 /hpf Urine WBC 1 /hpf Urine Squamous Epithelial 2 /hpf Cells Urine Mucus MANY /lpf Microscopic Urinalysis Comment CULT NOT INDICATED White Blood Count 2.4 TH/MM3 Red Blood Count 4.07 MIL/MM3 Hemoglobin 11.0 GM/DL Hematocrit 33.8 % Mean Corpuscular Volume 83.0 FL Mean Corpuscular Hemoglobin 27.1 PG Mean Corpuscular Hemoglobin 32.7 % Concent Red Cell Distribution Width 13.6 % Platelet Count 150 TH/MM3 Mean Platelet Volume 8.7 FL Neutrophils (%) (Auto) 71.7 % Lymphocytes (%) (Auto) 18.8 % Monocytes (%) (Auto) 7.3 % Eosinophils (%) (Auto) 1.4 % Basophils (%) (Auto) 0.8 % Neutrophils # (Auto) 1.7 TH/MM3 Lymphocytes # (Auto) 0.5 TH/MM3 Monocytes # (Auto) 0.2 TH/MM3 Eosinophils # (Auto) 0.0 TH/MM3 Basophils # (Auto) 0.0 TH/MM3 CBC Comment DIFF FINAL Differential Comment Sodium Level 140 MEQ/L Potassium Level 3.6 MEQ/L Chloride Level 107 MEQ/L Carbon Dioxide Level 25.9 MEQ/L Anion Gap 7 MEQ/L Blood Urea Nitrogen 8 MG/DL Creatinine 0.58 MG/DL Estimat Glomerular Filtration 124 ML/MIN Rate Random Glucose 86 MG/DL Calcium Level 8.7 MG/DL Magnesium Level 2.0 MG/DL Exam-Podiatry Dermatological Exam Ulcers: Location/Measurements RLE incision is well approximated. No active drainage at the surgical site. Continued erythema at the forefoot no fluctuance. Active ROM. No calf pain. Improved. Assessment & Plan Diagnosis: (1) Abscess of right foot Status: Acute (2) Cellulitis of right foot Status: Acute A/P s/p Right foot I and D DOS 10/15/16 Dressing change on 10/17/16 Recommend 2 weeks of IV abx minimal. + MRSA Plan for d/c on with improved FF erythema. F/U with Dr Irwin with in 1 week of d/c Eliana Irwin DPM Oct 17, 2016 11:48
--- NOTE | 2016-10-17 13:13 | PD.AMA ---
Against Medical Advice Note Diagnosis: (1) Cellulitis of right foot (2) Abscess of right foot (3) IV drug user Discharge Disposition: Against Medical Advice Pt Condition on Discharge: Stable Recommended Treatment Course Present to any hospital, and inform them of your hospitalization here, that you left against medical advice, and that you will need to complete two week course of IV antibiotics for right foot MRSA infection as per surgical recommendations. AMA Statement Patient Winsome Reyes has decided to leave the hospital against medical advice. This patient has the capacity to refuse care and understands the risks of leaving, including permanent disability and/or , and has had an opportunity to ask questions about her condition. The patient has been informed that she may return for care at any time, and follow up has been arranged/ advised. Lukas Ness MD Oct 17, 2016 13:13
--- NOTE | 2016-10-17 13:21 | HHI.DS ---
Discharge Summary Admission Date Oct 15, 2016 at 08:05 Discharge Date: Oct 17, 2016 Admitting Diagnosis abscess and cellulitis of right foot (1) Abscess of right foot ICD Code: L02.611 (2) Cellulitis of right foot ICD Code: L03.115 (3) IV drug user ICD Code: F19.90 (4) Hypokalemia ICD Code: E87.6 Procedures Right foot incision and drainage. Cultures returned MRSA. Please see sensitivities. Brief History - From Admission This is a 24-year-old female with PMH of IV drug abuse. Patient reports approximately 2-3 weeks ago she was treated for MRSA infection of the right hand in [place] reports she was admitted for 3 days on IV antibiotics and then was sent home with antibiotic pills is unsure what she was taking. Patient reports she's been treated multiple times for skin abscesses, "too many to count." Presents to the emergency department today with because of right foot/ ankle abscess. Patient reports that this is an injection site over 5 years ago not a recent injection site. She says she's had this one for approximately a week, reports this started as a bump then a week ago opened up and has been draining. Location right foot/ankle region. She says it's extremely painful sharp stabbing type of pain. Palpation or movement makes it worse. Nothing makes it better. She denies streaking of the redness around this abscess. Patient reports subjective fevers and chills at home starting Tuesday, 2016. Patient denies nausea vomiting diarrhea constipation shortness of breath or chest pain. Patient refused I&D offered by the ED provider. CBC/BMP: 10/15/16 0644 10/15/16 0644 Significant Findings Laboratory Tests Test 10/14/16 10/14/16 10/15/16 17:26 18:14 06:44 Red Blood Count 3.66 MIL/MM3 (4.00-5.30) Hemoglobin 10.3 GM/DL 11.0 GM/DL (11.6-15.3) (11.6-15.3) Hematocrit 30.1 % 33.8 % (35.0-46.0) (35.0-46.0) Neutrophils (%) (Auto) 87.5 % 71.7 % (16.0-70.0) (16.0-70.0) Lymphocytes (%) (Auto) 5.8 % (9.0-44.0) Lymphocytes # (Auto) 0.3 TH/MM3 0.5 TH/MM3 (1.0-4.8) (1.0-4.8) Potassium Level 3.0 MEQ/L (3.5-5.1) Aspartate Amino Transf 42 U/L (15-37) (AST/SGOT) Alanine Aminotransferase 81 U/L (10-53) (ALT/SGPT) Albumin 3.1 GM/DL (3.4-5.0) Urine Occult Blood SMALL (NEG) Urine Urobilinogen 4.0 MG/DL (LESS THAN 2.0) Urine Mucus MANY /lpf (OCC) White Blood Count 2.4 TH/MM3 (4.0-11.0) Neutrophils # (Auto) 1.7 TH/MM3 (1.8-7.7) Imaging Last Impressions Foot X-Ray 10/14/16 1423 Signed Impressions: Service Date/Time: September 15:25 - CONCLUSION: Soft tissue swelling over the dorsum of the midfoot with no underlying bony abnormality. Roman Briggs MD Lower Extremity CT 10/14/16 0000 Signed Impressions: Service Date/Time: September 18:42 - CONCLUSION: Findings are suspicious for focal abscess in the subcutaneous tissues with surrounding inflammatory process. Danny Beyer MD PE at Discharge Patient seen with nurse present. Patient refuses physical exam. She is alert and oriented 3. Pt update on day of discharge Patient seen this afternoon around 12:30. She says that surgery came by this morning 7 of the foot looks good, that she may be able to go home tomorrow, however they do recommend 2 weeks of IV antibiotics. Given patient's history of IV drug use, we cannot send her home with a PICC line. I offered to consult infectious disease to get their recommendations, as it is sensitive to doxycycline. patient, as well as friend at bedside are upset with these recommendations, are not willing to wait for infectious disease consultation, and have decided to go to another hospital. Patient got up and walked to her wheelchair. She refuses a.m. labs, did not allow lab to try. Hospital Course This is a 24-year-old female with PMH of IV drug abuse. Patient reports approximately 2-3 weeks ago she was treated for MRSA infection of the right hand in [place] reports she was admitted for 3 days on IV antibiotics and then was sent home with antibiotic pills is unsure what she was taking. Patient reports she's been treated multiple times for skin abscesses, "too many to count." Presents to the emergency department today with because of right foot/ ankle abscess. Which has been present 1 week -Podiatry was consulted, patient underwent incision and drainage of right foot abscess with cultures positive for MRSA. She was treated with IV antibiotics with improvement. Podiatry recommends 2 weeks of IV antibiotics. Patient was upset at these recommendations, decided to leave AGAINST MEDICAL ADVICE. For problem-based summary for most recent progress note, please see below. //R foot abscess/cellulitis CT right lower extremity reveals: Findings are suspicious for focal abscess in the subcutaneous tissues with surrounding inflammatory process. Right foot x-ray reviewed by myself as well as Dr. Mcgarry and reveals: Soft tissue swelling over the dorsum of the midfoot with no underlying bony abnormality patient refused I&D in ER consult Podiatry Patient started on vancomycin and Zosyn IV in emergency department will continue with pharmacy to dose vancomycin -s/p R foot I+D by podiatry, appreciate assist. cont iv abx. await cultures. //Hypokalemia improved after replacement. //IV drug abuse counselled instructed to abstain //Tobacco abuse counselled to abstain //DVT prophylasis with heparin Pt Condition on Discharge: Stable Discharge Disposition: Discharge Home Discharge Time: <= 30 minutes Discharge Instructions DIET: Follow Instructions for: As Tolerated, No Restrictions Medication Profile: No Active Prescriptions or Reported Meds Additional Information Patient left AGAINST MEDICAL ADVICE. Patient advised of need for continued antibiotics, risk of life/limb if she does not receive antibiotics. She says she will go to another hospital to obtain IV antibiotics for treatment of her foot. Lukas Ness MD Oct 17, 2016 13:21
--- NOTE | 2016-10-18 07:20 | MP ---
cc: NESTOR IRWIN DPM DATE OF SURGERY: 10/15/2016 DATE OF : 1990 SURGEON THERESA Irwin PREOPERATIVE DIAGNOSIS Right foot abscess. POSTOPERATIVE DIAGNOSIS Right foot abscess. PROCEDURE Right foot I&D. ANESTHESIA MAC. HEMOSTASIS None. ESTIMATED BLOOD LOSS Less than 10 cc. MATERIALS 3-0 nylon. INJECTABLES Postoperatively 10 cc of 0.5% Marcaine plain. BRIEF HISTORY The patient is a 26-year-old female with a past medical history of multiple IV drug use associated with abscesses. She presented with bulla and abscess to the right foot. She refused incision and drainage in the ER. Risks, benefits, pros and cons were discussed with the patient. She freely consented to surgical intervention. No guarantees were given or implied. PROCEDURE IN DETAIL The patient was brought into the operating room and placed on the operating table in the supine position. After general anesthesia was administered a right ankle tourniquet was applied but never inflated throughout the case. The right foot was prepped, scrubbed and draped in the usual sterile aseptic manner. Attention was then directed to the right foot where a significant hematoma bulla formation was noted. A superficial culture was taken of that hematoma/abscess and passed off the table for aerobic, anaerobic, Gram stain, culture and sensitivity. The hematoma was then debrided. An incision was made underlying the hematoma. This was carried through skin and soft tissue down to the level of the deep soft tissue. All bleeders were Bovie'd or tied as necessary. A deep culture was taken and sent off the field for aerobic, anaerobic, Gram stain culture and sensitivity as well as fungal. The incision was explored in all areas, evaluating for abscesses. It was cleared of all abscesses and approximately 5-10 cc of purulent serosanguineous drainage was evacuated. The incision was then copiously irrigated with normal sterile saline impregnated with two units of . The incision was then primarily repaired using 3-0 nylon in a combination of simple sutures as well as horizontal mattress. Dry sterile dressings were applied using Adaptic, 4x4s, ABD, [place] and a light Tres wrap. An area block was given very proximal on the ankle, proximal to the demarcated erythema lines, with 10 cc of 0.5% Marcaine plain. The patient tolerated the procedure. At completion the patient was transferred to PACU for a brief period of post-op monitoring after which she will be discharged home per PACU protocol. THERESA Hines /4:48 PM /7:05 AM
--- NOTE | 2016-10-18 18:43 | PD.POD ---
Subjective Podiatric Problems s/p R foot I and D DOS 10/14/16 Attempted to see patient on 10/18/16. Patient left AMA on 10/17/16 Pain scale used: 0-10 numeric scale Pain score: 5 Past Med/Surg/Social History Social History Smoking Status: Current Every Day Smoker Objective Coded Allergies: Phenergan (Verified Allergy, Severe, HALLUCINATIONS, N&V, 10/14/16) Septra (Verified Allergy, Severe, HALLUCINATIONS, N&V, 10/14/16) Cipro (Verified Allergy, Intermediate, REDDENED ITCHY RASH, 10/14/16) *MDRO Multi-Drug Resistant Organism (Unverified Adverse Reaction, Unknown , 10/18/16) MRSA (fluid) - 08/2014 MRSA (foot)-10/15/16 Assessment & Plan Diagnosis: (1) Abscess of right foot Status: Acute (2) Cellulitis of right foot Status: Acute A/P s/p Right foot I and D DOS 10/15/16 Dressing change on 10/17/16 Patient left AMA on 10/17/16 Eliana Irwin DPM October 18, 2016 18:43
== END 2016-10-17 12:48 | disposition left against medical advice (07) | DRG 571 ==
LOC: NEPE 13:07 → NEDA 19:32 → INTOOBSV 19:32 → NEPFCDU 22:35 → OBSVTOIN 10-15 08:05 → N07B 10-15 15:03 → N05A 10-15 18:51
PROVIDERS: ADMIT Internal Medicine; ATTEND Internal Medicine
PROC: 0JBQ0ZZ Excision of Right Foot Subcutaneous Tissue and Fascia, Open Approach (ICD-10-PCS; principal; 2016-10-15 15:51)
DX: L02.611 Cutaneous abscess of right foot (principal); L03.115 Cellulitis of right lower limb; S61.539A Puncture wound without foreign body of unspecified wrist, initial encounter; E87.6 Hypokalemia; F17.200 Nicotine dependence, unspecified, uncomplicated; F19.10 Other psychoactive substance abuse, uncomplicated; Z86.14 Personal history of Methicillin resistant Staphylococcus aureus infection; B95.62 Methicillin resistant Staphylococcus aureus infection as the cause of diseases classified elsewhere
CPT/HCPCS: 73630; 73701; 76937; 80048; 80053; 81001; 82948; 83605; 83735; 84703; 85025; 86403; 87015; 87040; 87070; 87102; 87116; 87147; 87186; 87205; 87206; 96365; 96375; G0378; J0131; J1170; J1885; J2250; J2270; J2405; J2543; J3010; J3370; J7030; J7050; J7120; Q9967

== ENCOUNTER 2016-10-24 14:48 | Emergency (ER) | payer OTHER ==
[~2016-10-24] VITALS: Ht 154.9 cm; Wt 53.0 kg
[2016-10-24 14:50] VITALS: BP 131/80; PULSE 100; RESP 14; TEMP 98.7; O2SAT 97
--- NOTE | 2016-10-24 16:02 | PD ---
HPI Chief Complaint: Skin Problem Time Seen by Provider: 15:48 Travel History International Travel<30 days: No Contact w/Intl Traveler<30days: No Traveled to known affect area: No History of Present Illness HPI 26 year old female with PMH of IVDA, MRSA presents to the ED for removal of sutures of the right foot. Patient endorses pain in the area. Denies numbness, tingling, weakness, limitations to range of motion. Denies fever, chills. She has been ambulatory on the extremity. Patient has not followed up with the upholstery auto trimmer. Patient states that she had childcare issues and that prompted her to leave AMA at last visit. PFSH Past Medical History Blood Disorders: No Heart Rhythm Problems: No Cancer: No Cardiovascular Problems: Yes (ENDOCARDITIS) High Cholesterol: No Chest Pain: No Congestive Heart Failure: No Diminished Hearing: No Endocrine: No Genitourinary: No Immune Disorder: No Musculoskeletal: No Neurologic: No Psychiatric: No Reproductive: No Respiratory: No Integumentary: Yes (CELLULITIS FROM IV DRUG USE) Immunizations Current: Yes ?: Not LMP: 10/15/16 : 3 Para: 2 Miscarriage: 0 : 0 Past Surgical History Abdominal Surgery: No Cardiac Surgery: No Ear Surgery: No Endocrine Surgery: No Eye Surgery: No Genitourinary Surgery: No Gynecologic Surgery: No Oral Surgery: No Pacemaker: No Thoracic Surgery: No Other Surgery: Yes (I&D BILAT WRIST ABSCESSES and left arm) Social History Alcohol Use: No Tobacco Use: Yes (06/23 ppd) Substance Use: Yes (ocycodone) Allergies-Medications (Allergen,Severity, Reaction): Coded Allergies: Phenergan (Verified Allergy, Severe, HALLUCINATIONS, N&V, 10/14/16) Septra (Verified Allergy, Severe, HALLUCINATIONS, N&V, 10/14/16) Cipro (Verified Allergy, Intermediate, REDDENED ITCHY RASH, 10/14/16) *MDRO Multi-Drug Resistant Organism (Verified Adverse Reaction, Unknown, ) MRSA (fluid) - 08/2014 MRSA (foot)-10/15/16 Reported Meds & Prescriptions Reported Meds & Active Scripts Active Bactrim DS (Sulfamethoxazole-Trimethoprim) 800-160 Mg Tab 1 Tab PO BID Review of Systems Except as stated in HPI: all other systems reviewed are Neg Physical Exam Narrative GENERAL: Well-nourished, well-developed white female in no acute distress. SKIN: Focused skin assessment warm/dry. Multiple tattoos. HEAD: Normocephalic. EYES: No scleral icterus. No injection or drainage. NECK: Supple, trachea midline. No JVD or lymphadenopathy. CARDIOVASCULAR: Regular rate and rhythm without murmurs, gallops, or rubs. RESPIRATORY: Breath sounds clear and equal bilaterally. No accessory muscle use. GASTROINTESTINAL: Abdomen soft, non-tender, nondistended. MUSCULOSKELETAL: No cyanosis, or edema. FOCUSED RIGHT LOWER EXTREMITY EXAM: 2+ DP pulse. There is a ~3cm well healed surgical wound with sutures in place on the dorsum of the foot. There is a ~2 cm area of surrounding tender erythema. No warmth. No fluctuance. Patient maintains flexion and extension of the toes and ankle. The bottom of her foot is very dirty and the lines that I aysha around her cellulitis one week ago are still visible at the ankle. Sensation intact to light touch distally. Cap refill less than 2 seconds. BACK: Nontender without obvious deformity. No CVA tenderness. Data Data Last Documented VS Vital Signs Date Time Temp Pulse Resp B/P Pulse Ox O2 Delivery O2 Flow Rate FiO2 10/24/16 17:57 98.0 67 16 121/72 99 Orders Vascular Access Team Consult/P PRN (10/24/16 15:46) Complete Blood Count With Diff (10/24/16 15:46) Basic Metabolic Panel (Bmp) (10/24/16 15:46) Vascular Poc Ultrasound (10/24/16 ) Ibuprofen (Motrin) (10/24/16 18:00) Labs Laboratory Tests Test 10/24/16 17:05 White Blood Count 6.2 TH/MM3 Red Blood Count 4.24 MIL/MM3 Hemoglobin 11.6 GM/DL Hematocrit 35.0 % Mean Corpuscular Volume 82.6 FL Mean Corpuscular Hemoglobin 27.3 PG Mean Corpuscular Hemoglobin 33.1 % Concent Red Cell Distribution Width 13.6 % Platelet Count 197 TH/MM3 Mean Platelet Volume 8.8 FL Neutrophils (%) (Auto) 68.8 % Lymphocytes (%) (Auto) 21.2 % Monocytes (%) (Auto) 5.5 % Eosinophils (%) (Auto) 3.9 % Basophils (%) (Auto) 0.6 % Neutrophils # (Auto) 4.2 TH/MM3 Lymphocytes # (Auto) 1.3 TH/MM3 Monocytes # (Auto) 0.3 TH/MM3 Eosinophils # (Auto) 0.2 TH/MM3 Basophils # (Auto) 0.0 TH/MM3 CBC Comment DIFF FINAL Differential Comment Sodium Level 137 MEQ/L Potassium Level 4.0 MEQ/L Chloride Level 101 MEQ/L Carbon Dioxide Level 28.5 MEQ/L Anion Gap 8 MEQ/L Blood Urea Nitrogen 7 MG/DL Creatinine 0.65 MG/DL Estimat Glomerular Filtration 109 ML/MIN Rate Random Glucose 92 MG/DL Calcium Level 8.6 MG/DL MDM Medical Decision Making Medical Screen Exam Complete: Yes Emergency Medical Condition: Yes Differential Diagnosis suture removal versus abscess versus cellulitis versus wound infection versus other Narrative Course 26 year old female with PMH of IVDA, MRSA presents to the ED for removal of sutures of the right foot. Patient endorses pain in the area. Denies numbness, tingling, weakness, limitations to range of motion. Denies fever, chills. She has been ambulatory on the extremity. Patient has not followed up with the upholstery auto trimmer. Patient states that she had childcare issues and that prompted her to leave A at last visit. Vitals reviewed. Pulse 100 on presentation, 67 on recheck. Physical exam reveals a nontoxic appearing white female in no acute distress. FOCUSED RIGHT LOWER EXTREMITY EXAM: 2+ DP pulse. There is a ~3cm well healed surgical wound with sutures in place on the dorsum of the foot. There is a ~2 cm area of surrounding tender erythema. No warmth. No fluctuance. Patient maintains flexion and extension of the toes and ankle. The bottom of her foot is very dirty and the lines that I aysha around her cellulitis one week ago are still visible at the ankle. Sensation intact to light touch distally. Cap refill less than 2 seconds. Vascular access team consult was placed to draw lab work. CBC and CMP are unremarkable. 5 nonabsorbable sutures were removed. Patient tolerated procedure well. A clean, dry dressing was applied. Patient was prescribed Bactrim DS twice a day 10 days. She is instructed to follow-up with the upholstery auto trimmer, Dr. Irwin, return for worsening of symptoms. She indicated understanding of instructions and is agreeable to the care plan. The patient is stable and discharged home. Diagnosis Primary Impression: Encounter for removal of sutures Referrals: Eliana Irwin DPM Patient Instructions: Cellulitis (ED), General Instructions Additional Instructions: Rest, hydrate. Take all antibiotics as prescribed, even if your symptoms resolve. Follow-up with Dr. Irwin this week as discussed. Return to the ED for any urgent or emergent medical condition. Med/Other Pt SpecificInfo: Prescription(s) given Scripts Sulfamethoxazole-Trimethoprim (Bactrim DS)800-160 Mg Tab1 Tab PO BID #20 TAB Ref 0 Prov:Mónica Quiles MD 10/24/16 Disposition: 01 DISCHARGE HOME Condition: Stable Melly Roth October 24, 2016 16:02
[2016-10-24 17:22] LABS: AUTOMATED NEUTROPHIL # 4.2 TH/MM3 (1.8-7.7); BASOPHIL % 0.6 % (0.0-2.0); EOSINOPHIL # 0.2 TH/MM3 (0-0.4); EOSINOPHIL % 3.9 % (0.0-4.0); LYMPH % 21.2 % (9.0-44.0); LYMPHOCYTE # 1.3 TH/MM3 (1.0-4.8); MEAN CELL VOLUME 82.6 FL (80.0-100.0); MEAN CORPUSCULAR HEMOGLOBIN 27.3 PG (27.0-34.0); MEAN CORPUSCULAR HGB CONC 33.1 % (32.0-36.0); MONO % 5.5 % (0.0-8.0); NEUT % 68.8 % (16.0-70.0); PLATELET COUNT 197 TH/MM3 (150-450); RED BLOOD COUNT 4.24 MIL/MM3 (4.00-5.30); RED CELL DISTRIBUTION WIDTH 13.6 % (11.6-17.2); WHITE BLOOD COUNT 6.2 TH/MM3 (4.0-11.0)
[2016-10-24 17:24] LABS: HEMO FLAGS DIFF FINAL
[2016-10-24] MEDS ORDERED: BACT800T5 PO (17:36)
[2016-10-24 17:48] LABS: BICARBONATE 28.5 MEQ/L (21.0-32.0)
[2016-10-24 17:57] VITALS: BP 121/72; TEMP 98
[2016-10-24] MEDS ORDERED: IBUPROFEN 800 MG TAB PO ONE (18:00)
== END 2016-10-24 19:06 | disposition home or self-care (01) ==
LOC: NEPC 14:48
DX: L03.115 Cellulitis of right lower limb (principal); Z48.02 Encounter for removal of sutures
CPT/HCPCS: 76937; 80048; 85025; 99283

== ENCOUNTER 2016-12-13 13:53 | Emergency (ER) | payer OTHER ==
[~2016-12-13] VITALS: Ht 154.9 cm; Wt 50.0 kg
[~2016-12-13 13:53] MED LIST changes: +BACT800T5 PO; -PRENTAB PO
[2016-12-13 13:57] VITALS: BP 117/55; PULSE 98; RESP 20; TEMP 98.6; O2SAT 100
--- NOTE | 2016-12-13 15:17 | PD ---
Physical Exam Time Seen by Provider: 15:15 Narrative 26 yo F c/o R index finger abscess w/ worseuing despite Bactrim for 9 days. + loss of sensation to the finger. Denies fever, vomiting. Patient seen in triage. Awaiting bed placement. VS reviewed. Data Data Last Documented VS Vital Signs Date Time Temp Pulse Resp B/P Pulse Ox O2 Delivery O2 Flow Rate FiO2 12/13/16 13:57 98.6 98 20 117/55 100 Room Air MDM Supervised Visit with MAYKEL: Katerina Whitehead Dec 13, 2016 15:17
== END 2016-12-13 18:07 | disposition left against medical advice (07) ==
LOC: NED 13:53
DX: L02.511 Cutaneous abscess of right hand (principal); Z53.21 Procedure and treatment not carried out due to patient leaving prior to being seen by health care provider
CPT/HCPCS: 99281

== ENCOUNTER 2016-12-14 12:31 | Inpatient (IN) | payer OTHER ==
[2016-12-14] VITALS (7 sets, daily range): BP systolic 96–138; BP diastolic 53–99; PULSE 78–93; RESP 16–18; TEMP 97.5–98.7; O2SAT 97–99
[~2016-12-14] VITALS: Ht 154.9 cm; Wt 48.2 kg
--- NOTE | 2016-12-14 12:37 | PD ---
Physical Exam Date Seen by Provider: Dec 14, 2016 Time Seen by Provider: 12:35 Data Data Last Documented VS Vital Signs Date Time Temp Pulse Resp B/P Pulse Ox O2 Delivery O2 Flow Rate FiO2 12/14/16 12:34 97.5 78 16 118/57 97 MDM Supervised Visit with MAYKEL: No Narrative Course 26 YO F with complaint of redness, pain, numbness of the right index finger. Prescribed Bactrim, states compliant. --F/C. Hx IVDA. Finger appears necrotic. Vitals reviewed. Patient seen in triage, awaiting bed placement. Melly Roth Dec 14, 2016 12:37
[2016-12-14] MEDS ORDERED: SODIUM CHLOR 0.9% 1000 ML INJ 800 ML IV ONE (14:48)
[2016-12-14] MEDS ORDERED: SODIUM CHLOR 0.9% 1000 ML INJ 1,000 ML IV ONE (14:48)
[2016-12-14] MEDS ORDERED: PIPERACIL-TAZO 4.5 GM PREMIX 100 ML IV STA (14:56)
[2016-12-14] MEDS ORDERED: VANCOMYCIN INJ 1,000 MG in SODIUM CHLOR 0.9% 250 ML INJ 250 ML IV STA (14:56)
--- NOTE | 2016-12-14 15:03 | PD ---
HPI Chief Complaint: Skin Problem Time Seen by Provider: 15:03 Travel History International Travel<30 days: No Contact w/Intl Traveler<30days: No Traveled to known affect area: No History of Present Illness HPI 26-year-old female with history of IV Dilaudid use presents to emergency department for evaluation of a swollen and painful right second digit. Patient states that she was seen and evaluated in [facility] for this approximately 10 days ago and started on Bactrim by mouth. She has been taking this as prescribed. Patient states she noticed it getting worse and began to turn black on the volar surface of the affected digit about 6 days ago. This is only worsened. She states she has no movement of the digit at the PIP or DIP. She reports severe, 10 out of 10 pain digit. Reports fevers and chills. Is uncertain if the wound was initially caused by injecting drugs into the digit , states she cannot recall. Denies chest pain or tightness. No difficulty breathing. Patient has no other symptoms to report at this time. PFSH Past Medical History Blood Disorders: No Heart Rhythm Problems: No Cancer: No Cardiovascular Problems: Yes (ENDOCARDITIS) High Cholesterol: No Chest Pain: No Congestive Heart Failure: No Diminished Hearing: No Endocrine: No Genitourinary: No Immune Disorder: No Musculoskeletal: No Neurologic: No Psychiatric: No Reproductive: No Respiratory: No Integumentary: Yes (CELLULITIS FROM IV DRUG USE) Immunizations Current: Yes Tetanus Vaccination: > 5 Years ?: Not LMP: 11/27/16 : 3 Para: 2 Miscarriage: 0 : 0 Past Surgical History Abdominal Surgery: No Cardiac Surgery: No Ear Surgery: No Endocrine Surgery: No Eye Surgery: No Genitourinary Surgery: No Gynecologic Surgery: No Oral Surgery: No Pacemaker: No Thoracic Surgery: No Other Surgery: Yes (I&D BILATERAL WRIST ABSCESSES) Social History Alcohol Use: No Tobacco Use: Yes (1/2 ppd) Substance Use: Yes (IV DILAUDID AND HEROINE- last used 12/13/16) Allergies-Medications (Allergen,Severity, Reaction): Coded Allergies: Phenergan (Verified Allergy, Severe, HALLUCINATIONS, N&V, 12/14/16) Septra (Verified Allergy, Severe, HALLUCINATIONS, N&V, 12/14/16) Cipro (Verified Allergy, Intermediate, REDDENED ITCHY RASH, 12/14/16) *MDRO Multi-Drug Resistant Organism (Verified Adverse Reaction, Unknown, ) MRSA (fluid) - 08/2014 MRSA (foot)-10/15/16 Reported Meds & Prescriptions Reported Meds & Active Scripts Active Bactrim DS (Sulfamethoxazole-Trimethoprim) 800-160 Mg Tab 1 Tab PO BID Review of Systems Except as stated in HPI: all other systems reviewed are Neg Physical Exam Narrative GENERAL: Unkempt female patient, in no acute distress SKIN: Focused skin assessment warm/dry. Multiple track leon on the upper extremities, scabbed lesions on the face. There is a 1 cm x 2 cm area of necrosis on the dorsal aspect of the right second digit. Proximal to this there is an area of open wound with purulent drainage. The entire right second digit is erythematous and edematous with a "sausage like" appearance. The inferior distal affected digit is white. There is no Refill. Patient is very reluctant to allow me to palpate the digit HEAD: Atraumatic. Normocephalic. EYES: Pupils equal and round. No scleral icterus. No injection or drainage. ENT: No nasal bleeding or discharge. Mucous membranes pink and moist. NECK: Trachea midline. No JVD. CARDIOVASCULAR: Regular rate and rhythm. No murmur appreciated. RESPIRATORY: No accessory muscle use. Clear to auscultation. Breath sounds equal bilaterally. GASTROINTESTINAL: Abdomen soft, non-tender, nondistended. Hepatic and splenic margins not palpable. MUSCULOSKELETAL: No obvious deformities. No clubbing. No cyanosis. Right second digit as described above. NEUROLOGICAL: Awake and alert. No obvious cranial nerve deficits. Motor grossly within normal limits. Normal speech. Data Data Last Documented VS Vital Signs Date Time Temp Pulse Resp B/P Pulse Ox O2 Delivery O2 Flow Rate FiO2 12/14/16 15:11 98 Room Air 12/14/16 12:34 97.5 78 16 118/57 Orders Vascular Access Team Consult/P PRN (12/14/16 14:48) Vascular Poc Ultrasound (12/14/16 ) Electrocardiogram (12/14/16 14:48) Complete Blood Count With Diff (12/14/16 14:48) Comprehensive Metabolic Panel (12/14/16 14:48) Prothrombin Time / Inr (Pt) (12/14/16 14:48) Act Partial Throm Time (Ptt) (12/14/16 14:48) Lactic Acid Sepsis Protocol (12/14/16 14:48) Urinalysis - C+S If Indicated (12/14/16 14:48) Blood Culture (12/14/16 14:48) Wound Culture And Gram Stain (12/14/16 14:48) Chest, Single Ap (12/14/16 14:48) Blood Glucose (12/14/16 14:48) Ecg Monitoring (12/14/16 14:48) Iv Access Insert/Monitor (12/14/16 14:48) Oximetry (12/14/16 14:48) Oxygen Administration (12/14/16 14:48) Sodium Chlor 0.9% 1000 Ml Inj (Ns 1000 M (12/14/16 14:48) Sodium Chlor 0.9% 1000 Ml Inj (Ns 1000 M (12/14/16 14:48) Ed Urine Pregnancytest Poc (12/14/16 14:48) Finger ([id number]) (12/14/16 ) Piperacil-Tazo 4.5 Gm Premix (Zosyn 4.5 (12/14/16 14:56) Vancomycin Inj (Vancomycin Inj) (12/14/16 14:56) Lactic Acid Sepsis Protocol (12/14/16 14:59) Diet Npo (12/14/16 Dinner) Morphine Inj (Morphine Inj) (12/14/16 16:45) Ondansetron Inj (Zofran Inj) (12/14/16 16:45) Admit Order (Ed Use Only) (12/14/16 16:59) Consult Hand Surgery (12/14/16 ) Labs Laboratory Tests Test 12/14/16 15:53 White Blood Count 6.8 TH/MM3 Red Blood Count 3.79 MIL/MM3 Hemoglobin 10.5 GM/DL Hematocrit 31.5 % Mean Corpuscular Volume 83.1 FL Mean Corpuscular Hemoglobin 27.7 PG Mean Corpuscular Hemoglobin 33.4 % Concent Red Cell Distribution Width 14.7 % Platelet Count 231 TH/MM3 Mean Platelet Volume 7.9 FL Neutrophils (%) (Auto) 55.8 % Lymphocytes (%) (Auto) 23.2 % Monocytes (%) (Auto) 5.0 % Eosinophils (%) (Auto) 15.4 % Basophils (%) (Auto) 0.6 % Neutrophils # (Auto) 3.8 TH/MM3 Lymphocytes # (Auto) 1.6 TH/MM3 Monocytes # (Auto) 0.3 TH/MM3 Eosinophils # (Auto) 1.0 TH/MM3 Basophils # (Auto) 0.0 TH/MM3 CBC Comment DIFF FINAL Differential Comment Prothrombin Time 9.9 SEC Prothromb Time International 0.9 RATIO Ratio Activated Partial 28.6 SEC Thromboplast Time Sodium Level 139 MEQ/L Potassium Level 3.5 MEQ/L Chloride Level 104 MEQ/L Carbon Dioxide Level 29.9 MEQ/L Anion Gap 5 MEQ/L Blood Urea Nitrogen 8 MG/DL Creatinine 0.65 MG/DL Estimat Glomerular Filtration 109 ML/MIN Rate Random Glucose 86 MG/DL Lactic Acid Level 1.4 mmol/L Calcium Level 8.5 MG/DL Total Bilirubin 0.3 MG/DL Aspartate Amino Transf 12 U/L (AST/SGOT) Alanine Aminotransferase 19 U/L (ALT/SGPT) Alkaline Phosphatase 86 U/L Total Protein 7.3 GM/DL Albumin 3.4 GM/DL MDM Medical Decision Making Medical Screen Exam Complete: Yes Emergency Medical Condition: Yes Medical Record Reviewed: Yes Differential Diagnosis Osteomyelitis versus cellulitis versus gangrene versus tenosynovitis versus sepsis Narrative Course 26 year-old female presents to the emergency department for evaluation of her right second digit. Patient has area of necrosis on the volar surface of the right second digit distal to an area of open wound. The finger is entirely edematous and erythematous. I discussed the patient with Dr. Flores, hand surgeon electronics supervisor. She requests Nothing by mouth. She has not had anything to eat today only to drink approximately around noon today. Laboratory Tests Test 12/14/16 15:53 White Blood Count 6.8 TH/MM3 Red Blood Count 3.79 MIL/MM3 Hemoglobin 10.5 GM/DL Hematocrit 31.5 % Mean Corpuscular Volume 83.1 FL Mean Corpuscular Hemoglobin 27.7 PG Mean Corpuscular Hemoglobin 33.4 % Concent Red Cell Distribution Width 14.7 % Platelet Count 231 TH/MM3 Mean Platelet Volume 7.9 FL Neutrophils (%) (Auto) 55.8 % Lymphocytes (%) (Auto) 23.2 % Monocytes (%) (Auto) 5.0 % Eosinophils (%) (Auto) 15.4 % Basophils (%) (Auto) 0.6 % Neutrophils # (Auto) 3.8 TH/MM3 Lymphocytes # (Auto) 1.6 TH/MM3 Monocytes # (Auto) 0.3 TH/MM3 Eosinophils # (Auto) 1.0 TH/MM3 Basophils # (Auto) 0.0 TH/MM3 CBC Comment DIFF FINAL Differential Comment Prothrombin Time 9.9 SEC Prothromb Time International 0.9 RATIO Ratio Activated Partial 28.6 SEC Thromboplast Time Sodium Level 139 MEQ/L Potassium Level 3.5 MEQ/L Chloride Level 104 MEQ/L Carbon Dioxide Level 29.9 MEQ/L Anion Gap 5 MEQ/L Blood Urea Nitrogen 8 MG/DL Creatinine 0.65 MG/DL Estimat Glomerular Filtration 109 ML/MIN Rate Random Glucose 86 MG/DL Lactic Acid Level 1.4 mmol/L Calcium Level 8.5 MG/DL Total Bilirubin 0.3 MG/DL Aspartate Amino Transf 12 U/L (AST/SGOT) Alanine Aminotransferase 19 U/L (ALT/SGPT) Alkaline Phosphatase 86 U/L Total Protein 7.3 GM/DL Albumin 3.4 GM/DL Last Impressions Chest X-Ray 12/14/16 1448 Signed Impressions: Service Date/Time: Wednesday, December 14, 2016 15:44 - CONCLUSION: No acute disease. Romulo Hauser MD Finger X-Ray 12/14/16 0000 Signed Impressions: Service Date/Time: Wednesday, December 14, 2016 15:47 - CONCLUSION: Abnormal soft tissue swelling second digit with oblique distal phalanx fracture and cortical irregularity head of the second middle phalanx suggesting osteomyelitis. Sean Mcgee MD Patient was given IV vancomycin and Zosyn. A call has been placed to hospitalists for admission. A consult will be placed to Dr. Flores. Diagnosis Primary Impression: Osteomyelitis of finger of right hand Additional Impressions: Necrotic wound of right hand Qualified Code: S61.401A - Necrotic wound of right hand, initial encounter IV drug user left middle finger infection Admitting Information Admitting Physician Requests: Admit Condition: Stable Jena Joseph Dec 14, 2016 15:03
--- NOTE | 2016-12-14 16:09 | RADRPT ---
EXAM DATE/TIME: 12/14/2016 15:44 [facility] COMPARISON: No previous studies available for comparison. INDICATIONS : Fever; possible infection. MEDICAL HISTORY : Cellulitis. Endocarditis. SURGICAL HISTORY : None. ENCOUNTER: Initial ACUITY: 1 day PAIN SCORE: 0/10 LOCATION: Bilateral chest FINDINGS: A single view of the chest demonstrates the lungs to be symmetrically aerated without evidence of mas s, infiltrate or effusion. The cardiomediastinal contours are unremarkable. Osseous structures are intact. CONCLUSION: No acute disease. Romulo Hauser MD on December 14, 2016 at 16:07 Board Certified Radiologist. This report was verified electronically.
--- NOTE | 2016-12-14 16:10 | RADRPT ---
EXAM DATE/TIME: 12/14/2016 15:47 [facility] COMPARISON: No previous studies available for comparison. INDICATIONS : Right second digit infection. MEDICAL HISTORY : Cellulitis. SURGICAL HISTORY : None. ENCOUNTER: Initial ACUITY: 1 week PAIN SCORE: 10/10 LOCATION: Right 2nd digit; hand. FINDINGS: There is diffuse soft tissue swelling of the second digit and an oblique mildly displaced fracture th rough the proximal shaft of the second distal phalanx. No definite soft tissue emphysema however ther e is some cortical ill definition of the head of the second middle phalanx, and osteomyelitis should be excluded. CONCLUSION: Abnormal soft tissue swelling second digit with oblique distal phalanx fracture and cortical irregula rity head of the second middle phalanx suggesting osteomyelitis. Sean Mcgee MD on December 14, 2016 at 16:06 Board Certified Radiologist. This report was verified electronically.
[2016-12-14 16:21] LABS: AUTOMATED NEUTROPHIL # 3.8 TH/MM3 (1.8-7.7); BASOPHIL % 0.6 % (0.0-2.0); EOSINOPHIL % 15.4 % (0.0-4.0); HEMATOCRIT 31.5 % (35.0-46.0); HEMO FLAGS DIFF FINAL; LYMPH % 23.2 % (9.0-44.0); LYMPHOCYTE # 1.6 TH/MM3 (1.0-4.8); MEAN CELL VOLUME 83.1 FL (80.0-100.0); MEAN CORPUSCULAR HEMOGLOBIN 27.7 PG (27.0-34.0); MEAN CORPUSCULAR HGB CONC 33.4 % (32.0-36.0); NEUT % 55.8 % (16.0-70.0); PLATELET COUNT 231 TH/MM3 (150-450); RED BLOOD COUNT 3.79 MIL/MM3 (4.00-5.30); RED CELL DISTRIBUTION WIDTH 14.7 % (11.6-17.2); WHITE BLOOD COUNT 6.8 TH/MM3 (4.0-11.0)
[2016-12-14 16:27] LABS: APTT (PATIENT) 28.6 SEC (24.3-30.1); INTERNATIONAL NORMALIZED RATIO 0.9 RATIO; PROTHROMBIN TIME - PATIENT 9.9 SEC (9.8-11.6)
[2016-12-14 16:36] LABS: ALT (GPT) 19 U/L (10-53); ANION GAP 5 MEQ/L (5-15); AST (GOT) 12 U/L (15-37); BICARBONATE 29.9 MEQ/L (21.0-32.0); BLOOD UREA NITROGEN 8 MG/DL (7-18); CHLORIDE 104 MEQ/L (98-107); GLOMERULAR FILTRATION RATE 109 ML/MIN (>89); POTASSIUM 3.5 MEQ/L (3.5-5.1); SODIUM (NA) 139 MEQ/L (136-145)
[2016-12-14 16:39] LABS: ALKALINE PHOSPHATASE 86 U/L (45-117); TOTAL BILIRUBIN ADULT 0.3 MG/DL (0.2-1.0)
[2016-12-14] MEDS ORDERED: MORPHINE SULFATE 4 MG/ML INJ IV PUSH ONE (16:45)
[2016-12-14] MEDS ORDERED: ONDANSETRON HCL 4 MG/2 ML VIAL IV PUSH ONE (16:45)
[2016-12-14 17:09] LABS: BLOOD, URINE NEG (NEG); GLUCOSE,URINE NEG (NEG); KETONE, URINE NEG (NEG); NITRITE,URINE NEG (NEG); PH, URINE 6.5 (5.0-8.5); SQUAMOUS EPITHELIAL CELL URINE <1 /hpf (0-5); URINE COLOR LIGHT-YELLOW (YELLW/STRAW)
[2016-12-14 17:10] LABS: COMMENT (UR) CATH-CULT NOT IND; CULTURE IF INDICATED CATH CULTURE NOT IND
--- NOTE | 2016-12-14 17:29 | HHI.HP ---
[facility] Tyrese Loredo MD Admission Diagnosis R 2nd digit osteomyelitis; r 2nd digit necrotic wound; IVDA Diagnoses: Chief Complaint: Finger infection Travel History International Travel<30 Days: No Contact w/Intl Traveler <30 Da: No Traveled to Known Affected Are: No History of Present Illness Written by Vinnie Carvajal, acting as scribe for Dr. Easton on 12/14/16 at 17:13. 26-year-old female with past medical history of IVDA and MRSA infections who presented with right index finger infection. The patient states that she has been having worsening infection of her right index finger. She says that she had been having fevers and swelling of her right index finger so she went to the ED at [facility]. Patient states that she was prescribed a 10 day course of Bactrim. She states that her finger infection has continued to get worse. She has taken 9-1/2 days of her Bactrim and presented here today for extreme pain and swelling of her right index finger. She denies injecting any IV drugs and her finger. She reports pain when she tries to move her finger. Hand surgery was contacted from the ED and recommended keeping the patient nothing by mouth until evaluation. Review of Systems Except as stated in HPI: all other systems reviewed are Neg Past Family Social History Past Medical History History of MRSA infections Past Surgical History Multiple I and D's Right heel surgery Reported Medications Reported Meds & Active Scripts Active Bactrim DS (Sulfamethoxazole-Trimethoprim) 800-160 Mg Tab 1 Tab PO BID Allergies: Coded Allergies: Phenergan (Verified Allergy, Severe, HALLUCINATIONS, N&V, 12/14/16) Septra (Verified Allergy, Severe, HALLUCINATIONS, N&V, 12/14/16) Cipro (Verified Allergy, Intermediate, REDDENED ITCHY RASH, 12/14/16) *MDRO Multi-Drug Resistant Organism (Verified Adverse Reaction, Unknown, ) MRSA (fluid) - 08/2014 MRSA (foot)-10/15/16 Family History Reviewed, no family history pertinent to current chief complaint Social History Injects IV pain medication Tobacco use Denies alcohol use Physical Exam Vital Signs Vital Signs Date Time Temp Pulse Resp B/P Pulse Ox O2 Delivery O2 Flow Rate FiO2 12/14/16 17:12 84 17 96/64 98 Room Air 12/14/16 15:11 98 Room Air 12/14/16 15:11 98 Room Air 12/14/16 12:34 97.5 78 16 118/57 97 Physical Exam GENERAL: Well-developed well-nourished. In mild to moderate distress secondary to pain. SKIN: Warm and dry. Right index finger with significant swelling and area of necrosis on the pad of the finger. HEENT: Normocephalic. Pupils equal and round. Mucous membranes pink and moist. CARDIOVASCULAR: Regular rate and rhythm. No murmur appreciated. RESPIRATORY: No accessory muscle use. Clear to auscultation. Breath sounds equal bilaterally. GASTROINTESTINAL: Abdomen soft, non-tender, nondistended. Bowel sounds x4. MUSCULOSKELETAL: Right index finger as above with decreased ROM secondary to swelling. Right upper tong area distal pulses intact. No clubbing or cyanosis. No edema. NEUROLOGICAL: Awake and alert. No focal neurological deficits. Moves upper and lower extremities spontaneously. Normal speech. PSYCHIATRIC: Appropriate mood and affect; insight and judgment normal. Laboratory Laboratory Tests Test 12/14/16 12/14/16 15:53 16:32 White Blood Count 6.8 Red Blood Count 3.79 Hemoglobin 10.5 Hematocrit 31.5 Mean Corpuscular Volume 83.1 Mean Corpuscular Hemoglobin 27.7 Mean Corpuscular Hemoglobin 33.4 Concent Red Cell Distribution Width 14.7 Platelet Count 231 Mean Platelet Volume 7.9 Neutrophils (%) (Auto) 55.8 Lymphocytes (%) (Auto) 23.2 Monocytes (%) (Auto) 5.0 Eosinophils (%) (Auto) 15.4 Basophils (%) (Auto) 0.6 Neutrophils # (Auto) 3.8 Lymphocytes # (Auto) 1.6 Monocytes # (Auto) 0.3 Eosinophils # (Auto) 1.0 Basophils # (Auto) 0.0 CBC Comment DIFF FINAL Differential Comment Prothrombin Time 9.9 Prothromb Time International 0.9 Ratio Activated Partial 28.6 Thromboplast Time Sodium Level 139 Potassium Level 3.5 Chloride Level 104 Carbon Dioxide Level 29.9 Anion Gap 5 Blood Urea Nitrogen 8 Creatinine 0.65 Estimat Glomerular Filtration 109 Rate Random Glucose 86 Lactic Acid Level 1.4 Calcium Level 8.5 Total Bilirubin 0.3 Aspartate Amino Transf 12 (AST/SGOT) Alanine Aminotransferase 19 (ALT/SGPT) Alkaline Phosphatase 86 Total Protein 7.3 Albumin 3.4 Urine Color LIGHT-YELLOW Urine Turbidity CLEAR Urine pH 6.5 Urine Specific Prentiss 1.005 Urine Protein NEG Urine Glucose (UA) NEG Urine Ketones NEG Urine Occult Blood NEG Urine Nitrite NEG Urine Bilirubin NEG Urine Urobilinogen LESS THAN 2.0 Urine Leukocyte Esterase NEG Urine RBC LESS THAN 1 Urine WBC LESS THAN 1 Urine Squamous Epithelial <1 Cells Microscopic Urinalysis Comment CATH-CULT NOT IND Date/Time Procedure Status Source Growth 12/14/16 15:53 Gram Stain - Final Resulted Wound Finger 12/14/16 15:53 Wound Culture Resulted Wound Finger Pending 12/14/16 15:53 Aerobic Blood Culture Received Blood Peripheral Pending 12/14/16 15:53 Anaerobic Blood Culture Received Blood Peripheral Pending Result Diagram: 12/14/16 1553 12/14/16 1553 Imaging Last Impressions Chest X-Ray 12/14/16 1448 Signed Impressions: Service Date/Time: Wednesday, December 14, 2016 15:44 - CONCLUSION: No acute disease. Romulo Hauser MD Finger X-Ray 12/14/16 0000 Signed Impressions: Service Date/Time: Wednesday, December 14, 2016 15:47 - CONCLUSION: Abnormal soft tissue swelling second digit with oblique distal phalanx fracture and cortical irregularity head of the second middle phalanx suggesting osteomyelitis. Sean Mcgee MD Assessment and Plan Assessment and Plan 26-year-old female with past medical history of IVDA and MRSA infections who presented with right index finger infection Right index finger osteomyelitis: Failed outpatient therapy with Bactrim. Reviewed: Finger x-ray shows second digit soft tissue swelling with oblique distal phalanx fracture and findings suggesting osteomyelitis. Afebrile. No leukocytosis. -Hand surgery consulted, appreciate input, keep nothing by mouth for now -Continue IV antibiotics with vancomycin and Zosyn -IVF -Pain control with IV Toradol -Follow up wound and blood cultures IV drug abuse: Cessation counseling. Caution with narcotics. Discussed Condition With Patient, ED FUND MANAGER Attending Statement patient is a 26 y/o female, IVDA, who presented to ER with right index finger infection. has been treated with bactrim for the past ten days. on exam, the right index finger is significantly swollen along with some discharge. A; - right index finger infection/ osteomyelitis Plan: - continue broad spectrum IV antibiotics -pain control -hand surgery consult Vinnie Carvajal Dec 14, 2016 17:28 Arnoldo Easton MD Dec 14, 2016 17:41
[2016-12-14] MEDS: SODIUM CHLOR 0.9% 1000 ML INJ 1,000 ML IV SCH (17:30)
[2016-12-14] MEDS ORDERED: Vancomycin Consult Pharmacy 1 EA OTHER SCH (17:30)
[2016-12-14] MEDS ORDERED: INSULIN HUMAN REGULAR 1,000 UNITS/10 ML VIAL SQ PRN (22:15)
[2016-12-14] MEDS ORDERED: SODIUM CHLORID 0.9% 500 ML IV PRN (22:15)
[2016-12-14] MEDS ORDERED: CHLORHEXIDINE GLUCONATE 2 % 1 PACK (2 CLOTHS) TOPICAL PRN (22:15)
[2016-12-14] MEDS ORDERED: LACTATED RINGER'S 1000 ML IV PRN (22:15)
[2016-12-14] MEDS ORDERED: POVIDONE IODINE 5% (ANTISEPSIS KIT) 4 APPLICATIONS EACH NARE PRN (22:15)
[2016-12-15] VITALS: BP 121/57; PULSE 84; RESP 20; TEMP 98.9; O2SAT 95
[2016-12-15] MEDS: PIPERACIL-TAZO 3.375 GM PREMIX 50 ML IV SCH ×4 (00:12→18:05)
--- NOTE | 2016-12-15 01:06 | PD.ORT.PN ---
Subjective Subjective Remarks See dictated consult note for full details. 26yF chronic wound right index finger prescribed bactrim at outside hospital. Reports no improvement on antibiotics. S/p multiple I&Ds for abscesses related to IVDA. Objective Vitals Vital Signs Date Time Temp Pulse Resp B/P Pulse Ox O2 Delivery O2 Flow Rate FiO2 12/15/16 00:00 98.9 84 20 121/57 95 12/14/16 20:00 98.1 93 18 106/61 99 12/14/16 19:12 98.7 12/14/16 18:38 86 18 138/99 97 Room Air 12/14/16 18:09 17 12/14/16 17:25 86 17 99/53 97 Room Air 12/14/16 17:12 84 17 96/64 98 Room Air 12/14/16 15:11 98 Room Air 12/14/16 15:11 98 Room Air 12/14/16 12:34 97.5 78 16 118/57 97 I/O 12/14/16 12/14/16 12/14/16 12/15/16 12/15/16 12/15/16 07:00 15:00 23:00 07:00 15:00 23:00 Intake Total 520 ml Output Total 520 ml Balance 0 ml Intake Oral 520 ml Output Urine Total 520 ml # Voids 0 Result Diagram: 12/14/16 1553 12/14/16 1553 Other Results Laboratory Tests Test 12/14/16 15:53 Prothrombin Time 9.9 SEC (9.8-11.6) Prothromb Time International 0.9 RATIO Ratio Imaging Last 24 hours Impressions Chest X-Ray 12/14/16 1448 Signed Impressions: Service Date/Time: Wednesday, December 14, 2016 15:44 - CONCLUSION: No acute disease. Romulo Hauser MD Objective Remarks Fusiform swelling right index finger with purulent drainage, unable to flex or extend right index finger at mcp, pip, or dip joints, no sensation distal index finger, decreased capillary refill Assessment & Plan Assessment and Plan 26yF with chronic wound right index finger concern for osteomyelitis with open draining wound with pmhx significant for IVDA -MRI to evaluate for osteomyelitis -continue IV Ab -Scheduled for OR 12/15, Keep NPO Lena Flores MD Dec 15, 2016 01:06
[2016-12-15] MEDS: SODIUM CHLOR 0.9% 1000 ML INJ 1,000 ML IV SCH ×3 (03:30→23:14)
[2016-12-15 04:00] VITALS: BP 108/52; PULSE 61; RESP 18; TEMP 97.2; O2SAT 96
[2016-12-15] MEDS: VANCOMYCIN INJ 800 MG in SODIUM CHLOR 0.9% 250 ML INJ 250 ML IV SCH ×2 (04:00→04:58)
[2016-12-15 08:00] VITALS: BP 112/57; PULSE 63; RESP 18; TEMP 98.3; O2SAT 97
--- NOTE | 2016-12-15 09:30 | HHI.PR ---
Subjective Remarks f/u; infection right hand in no acute distress but uncomfortable with the pain. no fever. awaiting surgery later today. d/w the RN. Objective Vitals Vital Signs Date Time Temp Pulse Resp B/P Pulse Ox O2 Delivery O2 Flow Rate FiO2 12/15/16 08:00 98.3 63 18 112/57 97 12/15/16 04:00 97.2 61 18 108/52 96 12/15/16 00:00 98.9 84 20 121/57 95 12/14/16 20:00 98.1 93 18 106/61 99 12/14/16 19:12 98.7 12/14/16 18:38 86 18 138/99 97 Room Air 12/14/16 18:09 17 12/14/16 17:25 86 17 99/53 97 Room Air 12/14/16 17:12 84 17 96/64 98 Room Air 12/14/16 15:11 98 Room Air 12/14/16 15:11 98 Room Air 12/14/16 12:34 97.5 78 16 118/57 97 I/O 12/14/16 12/14/16 12/14/16 12/15/16 12/15/16 12/15/16 07:00 15:00 23:00 07:00 15:00 23:00 Intake Total 520 ml 550 ml Output Total 520 ml Balance 0 ml 550 ml Intake Oral 520 ml 500 ml IV Total 50 ml Output Urine Total 520 ml # Voids 0 3 # Bowel Movements 0 Result Diagram: 12/14/16 1553 12/14/16 1553 Imaging Last Impressions Chest X-Ray 12/14/16 1448 Signed Impressions: Service Date/Time: Wednesday, December 14, 2016 15:44 - CONCLUSION: No acute disease. Romulo Hauser MD Finger X-Ray 12/14/16 0000 Signed Impressions: Service Date/Time: Wednesday, December 14, 2016 15:47 - CONCLUSION: Abnormal soft tissue swelling second digit with oblique distal phalanx fracture and cortical irregularity head of the second middle phalanx suggesting osteomyelitis. Sean Mcgee MD Objective Remarks GENERAL: in no apparent distress but uncomfortable with the pain CARDIOVASCULAR: Regular rate and regular rhythm without murmurs, gallops, or rubs. RESPIRATORY: Clear to auscultation. Breath sounds equal bilaterally. No wheezes , rales, or rhonchi. GASTROINTESTINAL: Abdomen soft, non-tender, nondistended. Normal, active bowel sounds MUSCULOSKELETAL:lower extremities without clubbing, cyanosis, or edema- right index finger significantly swollen and tender NEURO: Alert & Oriented x4 to person, place, time, situation. Moves all ext x4 skin; erythema over the right index finger psych; somewhat anxious about the surgery Procedures none Medications and IVs Current Medications Sodium Chloride 1,000 ml @ 1,000 mls/hr Q1H ONCE IV Last administered on 16:01; Start 12/14/16 at 14:48; Stop 12/14/16 at 15:47; Status DC Sodium Chloride 800 ml @ 1,000 mls/hr Q48M ONCE IV Last administered on 16:01; Start 12/14/16 at 14:48; Stop 12/14/16 at 15:35; Status DC Piperacillin Sod/ Tazobactam Sod 100 ml @ 200 mls/hr ONCE STAT IV Last administered on 12/14/16 17:23; Start 12/14/16 at 14:56; Stop 12/14/16 at 15:25 ; Status DC Vancomycin HCl/ Sodium Chloride (Vancomycin Inj/ NS 250 ml Inj) 250 ml @ 250 mls/hr ONCE STAT IV Last administered on 12/14/16 16:02; Start 12/14/16 at 14 :56; Stop 12/14/16 at 15:55; Status DC Morphine Sulfate (Morphine Inj) 4 mg ONCE ONCE IV PUSH Last administered on 17:23; Start 12/14/16 at 16:45; Stop 12/14/16 at 16:46; Status DC Ondansetron HCl 4 mg 4 mg ONCE ONCE IV PUSH Last administered on 12/14/16 17: 22; Start 12/14/16 at 16:45; Stop 12/14/16 at 16:46; Status DC Sodium Chloride (NS 1000 ml Inj) 1,000 ml @ 100 mls/hr Q10H IV ; Start at 17:30 Ketorolac Tromethamine 15 mg 15 mg Q6H PRN IV PUSH PAIN; Start 12/14/16 at 17: 30; Stop 12/19/16 at 17:29 Pharmacy Profile Note 0 ml @ 0 mls/hr UNSCH OTHER ; Start 12/14/16 at 17:30 Piperacillin Sod/ Tazobactam Sod 50 ml @ 100 mls/hr Q6H IV Last administered on 12/15/16t 00:12; Start 12/14/16 at 23:00 Vancomycin HCl 800 mg/Sodium Chloride 258 ml @ 250 mls/hr Q12H IV ; Start 12/15 at 04:00; Stop 12/15/16 at 08:42; Status DC Lactated Ringer's 1,000 ml @ 30 mls/hr Q24H PRN IV SEE LABEL COMMENTS; Start at 22:15; Stop 12/17/16 at 22:14 Sodium Chloride (NS 500 ml Inj) 500 ml @ 30 mls/hr [id number] PRN IV SEE LABEL COMMENTS; Start 12/14/16 at 22:15; Stop 12/17/16 at 22:14 Povidone Iodine (Betadine 5% Antisepsis Kit) 1 applic [employer] SERVICE MANAGER PRN EACH NARE SEE LABEL COMMENTS; Start 12/14/16 at 22:15; Stop 12/17/16 at 22:14 Chlorhexidine Gluconate (Chlorhexidine 2% Cloth) 3 pack [employer] SERVICE MANAGER PRN TOPICAL SEE LABEL COMMENTS; Start 12/14/16 at 22:15; Stop 12/17/16 at 22:14 Insulin Human Regular See Protocol Table ... [employer] DI[employer] SERVICE MANAGER PRN SQ SEE PROTOCOL TABLE ; Start 12/14/16 at 22:15; Stop 12/17/16 at 22:14 Vancomycin HCl/ Sodium Chloride (Vancomycin Inj/ NS 250 ml Inj) 257.5 ml @ 250 mls/hr Q8H IV ; Start 12/15/16 at 12:00 Miscellaneous Information SPECIFIC LAB TO BE DRAWN:VANCOMYCIN TROUGH DATE TO... ONCE ONCE .XX ; Start 12/16/16 at 03:45; Stop 12/16/16 at 03:46 A/P Assessment and Plan A/P Right index finger osteomyelitis: Failed outpatient therapy with Bactrim. Finger x-ray shows second digit soft tissue swelling with oblique distal phalanx fracture and findings suggesting osteomyelitis. Afebrile. No leukocytosis. -Hand surgery consulted- plan for MRI of the right hand and surgery later today. -Continue IV antibiotics with vancomycin and Zosyn -IVF -Pain control with IV Toradol; will add Dilaudid due to uncontrolled pain and ongoing infection. -Follow up wound and blood cultures IV drug abuse: Cessation counseling. Arnoldo Easton MD Dec 15, 2016 09:30
[2016-12-15] MEDS: NICOTINE 14 MG/24 HR PATCH T-DERMAL SCH (09:43)
[2016-12-15] MEDS: KETOROLAC TROMETHAMINE 30 MG/ML (IVP) VIAL IV PUSH PRN (09:44)
[2016-12-15] MEDS: HYDROmorphone HCL PF 1 MG/ML VIAL IV PUSH PRN ×2 (10:35→14:27)
[2016-12-15] MEDS: VANCOMYCIN INJ 750 MG in SODIUM CHLOR 0.9% 250 ML INJ 250 ML IV SCH ×2 (11:46→20:05)
[2016-12-15 12:00] VITALS: BP 110/56; PULSE 60; RESP 18; TEMP 97.9; O2SAT 98
[2016-12-15] MEDS ORDERED: PROPOFOL 200 MG/20 ML AMP IV ONE (12:00)
[2016-12-15] MEDS ORDERED: ONDANSETRON HCL 4 MG/2 ML VIAL IV PUSH ONE (12:00)
[2016-12-15] MEDS ORDERED: PHENYLEPH/NS 1000 MCG/10 ML SYR IV ONE (12:00)
[2016-12-15 16:00] VITALS: BP 98/52; PULSE 78; RESP 18; TEMP 98.4; O2SAT 97
--- NOTE | 2016-12-15 17:34 | RADRPT ---
EXAM DATE/TIME: 12/15/2016 16:47 [facility] COMPARISON: FINGER LEFT 3RD DIGIT ([id number]), September 02, 2014, 13:26. FINGER RIGHT 2ND DIGIT ([id number]), December 14 017, 15:47. INDICATIONS : Abscess. 2nd digit pain and swelling. CONTRAST: 9 cc Omniscan (gadodiamide) IV MEDICAL HISTORY : IVDU. SURGICAL HISTORY : Right heel surgery. Abscess removed from wrist. ENCOUNTER: Subsequent ACUITY: 2 weeks PAIN SCORE: 9/10 LOCATION: Right 2nd digit. TECHNIQUE: Multiplanar, multisequence MRI examination was performed without contrast and after the intravenous a dministration of gadolinium. FINDINGS: There is marked soft tissue swelling of the second digit with intense contrast enhancement of the sof t tissues. There is abnormal marrow in the distal third of the middle phalanx and the distal phalanx . The edema extends to the second MCP joint. Enhancement extends to the middle third of the middle phalanx.. Findings wpuld be consistent with cellulitis and osteomyelitis.. The bulk of the enhancement is on the vent ral surface at the DIP joint. CONCLUSION: Cellulitis with marrow changes consistent with osteo-myelitis involving the second di git extending from middle phalanx through distal phalanx. There is a fracture of the distal end of t he middle phalanges as well. Hermes Zhao MD FACR on December 15, 2016 at 17:25 Board Certified Radiologist. This report was verified electronically.
[2016-12-15] MEDS ORDERED: GADODIAMIDE PF 287 MG/ML 10 ML VIAL (for RAD MRI) IV ONE (18:16)
[2016-12-15] MEDS ORDERED: BUPIVACAINE HCL PF 0.5% 30 ML VIAL ONE (19:34)
[2016-12-15] MEDS ORDERED: BACITRACIN TOP OINT 15 GM TUBE ONE (19:35)
[2016-12-15] MEDS ORDERED: LIDOCAINE 1%/EPINEPHrine 1:100,000 SOLN 20 ML VIAL ONE (19:35)
[2016-12-15] MEDS ORDERED: LIDOCAINE HCL 2% 50 ML VIAL ONE (20:34)
[2016-12-15] MEDS ORDERED: NEOMYCIN/POLYMYXIN 1 ML G.U. IRRIGANT TOPICAL ONE (20:35)
[2016-12-15] MEDS ORDERED: DO NOT ADM ANY ANTICOAGULANT DRUGS PRN (21:33)
[2016-12-15] MEDS ORDERED: MIDAZOLAM HCL 2 MG/2 ML VIAL ONE (21:44)
[2016-12-15] MEDS ORDERED: fentaNYL CITRATE 250 MCG/5 ML AMP ONE (21:45)
[2016-12-15] MEDS ORDERED: MORPHINE SULFATE 4 MG/ML INJ ONE (22:34)
--- NOTE | 2016-12-15 22:40 | PD.ORT.PN ---
Subjective Subjective Remarks Patient reports moderate pain right index finger with paresthesias in index finger. Objective Vitals Vital Signs Date Time Temp Pulse Resp B/P Pulse Ox O2 Delivery O2 Flow Rate FiO2 12/15/16 22:15 83 14 101/66 95 12/15/16 22:00 83 14 105/57 100 Simple Mask 8 12/15/16 21:45 98.4 91 13 112/56 99 Simple Mask 8 12/15/16 16:00 98.4 78 18 98/52 97 12/15/16 12:00 97.9 60 18 110/56 98 12/15/16 08:00 98.3 63 18 112/57 97 12/15/16 04:00 97.2 61 18 108/52 96 12/15/16 00:00 98.9 84 20 121/57 95 I/O 12/14/16 12/14/16 12/14/16 12/15/16 12/15/16 12/15/16 07:00 15:00 23:00 07:00 15:00 23:00 Intake Total 520 ml 550 ml 250 ml 750 ml Output Total 520 ml Balance 0 ml 550 ml 250 ml 750 ml Intake Oral 520 ml 500 ml 0 ml 0 ml IV Total 50 ml 250 ml Other 750 ml Output Urine Total 520 ml # Voids 0 3 # Bowel Movements 0 Result Diagram: 12/14/16 1553 12/14/16 1553 Imaging Last 24 hours Impressions Chest X-Ray 12/14/16 1448 Signed Impressions: Service Date/Time: Wednesday, December 14, 2016 15:44 - CONCLUSION: No acute disease. Romulo Hauser MD Objective Remarks Fusiform swelling right index finger with purulent drainage, unable to flex or extend right index finger at mcp, pip, or dip joints, no sensation distal index finger, decreased capillary refill Assessment & Plan Assessment and Plan 26yF with chronic wound right index finger concern for osteomyelitis with open draining wound with pmhx significant for IVDA -MRI with osteomyelitis distal and middle phalanx right index finger with swelling into palm -POD0 s/p I&D right index finger, partial amputation right index finger at level of PIP joint with closure of amputation and packing in palm -Ab per infectious disease -Daily dressing changes starting POD2 to remove packing, patient to followup in wound care clinic for dressing changes -Followup in office in 2 weeks Lena Flores MD Dec 15, 2016 22:40
--- NOTE | 2016-12-15 23:07 | MB ---
cc: KERAKELLEY DATE OF CONSULTATION 12/14/16 REASON FOR CONSULTATION Osteomyelitis right index finger. HISTORY OF PRESENT ILLNESS Winsome Reyes is a 26-year-old female with past medical history of IV drug use and multiple MRSA infections throughout her body who states she has had approximately 10 days or more of significant purulence, inability to use the right index finger and pain. She went to an outside facility where she was given antibiotics which she reports had no improvement in her symptoms. She presented to the emergency room for evaluation on 12/14/2016. The patient reports moderate pain over the finger. She reports no sensation of the tip of the finger and inability to flex the finger at the DIP and PIP joints. PAST MEDICAL HISTORY IV drug use with multiple irrigation debridements. MEDICATIONS Bactrim. ALLERGIES PHENERGAN SEPTRA CIPRO SOCIAL HISTORY The patient reports tobacco use, injects IV Dilaudid. PHYSICAL EXAMINATION Vital signs are stable. Exam of the right index finger shows cellulitis to the level of the MP joint. Necrosis of the distal phalanx exposed flexor tendons to the level of the PIP joint from distal to proximal. The patient has some motion at the MP joint. No apparent involvement of the thumb, middle, ring or small fingers. No pain with range of motion of the wrist. Track adrián on the right volar forearm.Absent sensation at the distal phalanx level. Sensation present at the proximal phalanx. Necrosis of the distal phalanx. Capillary refill again at the level of the proximal phalanx. LABORATORY DATA White count 6.8, ESR 29, CRP 0.85. IMAGING STUDIES X-ray of the right hand showed oblique distal phalanx fracture with cortical irregularity suggestive of osteomyelitis. MRI shows marrow changes consistent with osteomyelitis involving the distal and middle phalanx of the index finger. ASSESSMENT/PLAN A 26-year-old female with chronic osteomyelitis of the right index finger with a past medical history significant for IV drug use. MRI was reviewed at length with the patient. Treatment options were discussed including treatment with antibiotics, irrigation debridement versus amputation. The patient understands and elects to proceed with amputation through the PIP joint. This will be done at the earliest available time. Infectious disease will be consulted for antibiotic management. The patient understands she is at risk for serious infection and long-term dysfunction in her hand. MD TATUM Wolf /10:52 PM /11:01 PM MTDInes
[2016-12-15] MEDS: REMOVE OLD NICODERM (NICOTINE) PATCH T-DERMAL SCH (23:14)
--- NOTE | 2016-12-15 23:40 | EKG ---
Date Performed: 12/14/2016 Time Performed: 15:16:45 PTAGE: 26 years EKG: Sinus rhythm WITH SINUS ARRHYTHMIA NORMAL ECG NO PREVIOUS TRACING DOCTOR: Johnathon Bynum Interpretating Date/Time 12/15/2016 23:38:57
[2016-12-16] MEDS ORDERED: ACETAMINOPHEN/HYDROcodone 325 MG/10 MG TAB PO ONE (02:15)
[2016-12-16] MEDS ORDERED: PHARMACY ORDERED LAB ONE (03:45)
[2016-12-16] MEDS: VANCOMYCIN INJ 750 MG in SODIUM CHLOR 0.9% 250 ML INJ 250 ML IV SCH ×3 (03:47→20:18)
[2016-12-16] MEDS: PIPERACIL-TAZO 3.375 GM PREMIX 50 ML IV SCH ×2 (04:13→09:51)
[2016-12-16] MEDS: KETOROLAC TROMETHAMINE 30 MG/ML (IVP) VIAL IV PUSH PRN (06:52)
[2016-12-16] MEDS ORDERED: ACETAMINOPHEN/HYDROcodone 325 MG/7.5 MG TAB PO PRN (09:00)
--- NOTE | 2016-12-16 09:02 | HHI.PR ---
Subjective Remarks in no acute distress. but uncomfortable with the pain to the right hand. no fever. d/w the RN. Objective Vitals Vital Signs Date Time Temp Pulse Resp B/P Pulse Ox O2 Delivery O2 Flow Rate FiO2 12/16/16 03:30 18 12/15/16 23:00 98.4 88 13 118/62 96 12/15/16 22:15 83 14 101/66 95 12/15/16 22:00 83 14 105/57 100 Simple Mask 8 12/15/16 21:45 98.4 91 13 112/56 99 Simple Mask 8 12/15/16 16:00 98.4 78 18 98/52 97 12/15/16 12:00 97.9 60 18 110/56 98 I/O 12/15/16 12/15/16 12/15/16 12/16/16 12/16/16 12/16/16 07:00 15:00 23:00 07:00 15:00 23:00 Intake Total 550 ml 250 ml 2000 ml 530 ml Balance 550 ml 250 ml 2000 ml 530 ml Intake Oral 500 ml 0 ml 0 ml 480 ml IV Total 50 ml 250 ml 1250 ml 50 ml Other 750 ml # Voids 3 2 # Bowel Movements 0 Result Diagram: 12/14/16 1553 12/14/16 1553 Imaging Last Impressions Hand MRI 12/15/16 0000 Signed Impressions: Service Date/Time: Thursday, December 15, 2016 16:47 - CONCLUSION: Cellulitis with marrow changes consistent with osteo-myelitis involving the second digit extending from middle phalanx through distal phalanx. There is a fracture of the distal end of the middle phalanges as well. Hermes Zhao MD FACR Chest X-Ray 12/14/16 1448 Signed Impressions: Service Date/Time: Wednesday, December 14, 2016 15:44 - CONCLUSION: No acute disease. Romulo Hauser MD Finger X-Ray 12/14/16 0000 Signed Impressions: Service Date/Time: Wednesday, December 14, 2016 15:47 - CONCLUSION: Abnormal soft tissue swelling second digit with oblique distal phalanx fracture and cortical irregularity head of the second middle phalanx suggesting osteomyelitis. Sean Mcgee MD Objective Remarks GENERAL: in no apparent distress but uncomfortable with the pain CARDIOVASCULAR: Regular rate and regular rhythm without murmurs, gallops, or rubs. RESPIRATORY: Clear to auscultation. Breath sounds equal bilaterally. No wheezes , rales, or rhonchi. GASTROINTESTINAL: Abdomen soft, non-tender, nondistended. Normal, active bowel sounds MUSCULOSKELETAL:lower extremities without clubbing, cyanosis, or edema- right index finger significantly swollen and tender NEURO: Alert & Oriented x4 to person, place, time, situation. Moves all ext x4 skin; erythema over the right index finger psych; somewhat anxious about the surgery Procedures I&D right index finger, partial amputation right index finger at level of PIP joint with closure of amputation and packing in palm Medications and IVs Current Medications Sodium Chloride 1,000 ml @ 1,000 mls/hr Q1H ONCE IV Last administered on 16:01; Start 12/14/16 at 14:48; Stop 12/14/16 at 15:47; Status DC Sodium Chloride 800 ml @ 1,000 mls/hr Q48M ONCE IV Last administered on 16:01; Start 12/14/16 at 14:48; Stop 12/14/16 at 15:35; Status DC Piperacillin Sod/ Tazobactam Sod 100 ml @ 200 mls/hr ONCE STAT IV Last administered on 12/14/16 17:23; Start 12/14/16 at 14:56; Stop 12/14/16 at 15:25 ; Status DC Vancomycin HCl/ Sodium Chloride (Vancomycin Inj/ NS 250 ml Inj) 250 ml @ 250 mls/hr ONCE STAT IV Last administered on 12/14/16 16:02; Start 12/14/16 at 14 :56; Stop 12/14/16 at 15:55; Status DC Morphine Sulfate (Morphine Inj) 4 mg ONCE ONCE IV PUSH Last administered on 17:23; Start 12/14/16 at 16:45; Stop 12/14/16 at 16:46; Status DC Ondansetron HCl 4 mg 4 mg ONCE ONCE IV PUSH Last administered on 12/14/16 17: 22; Start 12/14/16 at 16:45; Stop 12/14/16 at 16:46; Status DC Sodium Chloride (NS 1000 ml Inj) 1,000 ml @ 100 mls/hr Q10H IV ; Start at 17:30 Ketorolac Tromethamine 15 mg 15 mg Q6H PRN IV PUSH PAIN Last administered on 06:52; Start 12/14/16 at 17:30; Stop 12/19/16 at 17:29 Pharmacy Profile Note 0 ml @ 0 mls/hr UNSCH OTHER ; Start 12/14/16 at 17:30 Piperacillin Sod/ Tazobactam Sod 50 ml @ 100 mls/hr Q6H IV Last administered on 12/16/16 04:13; Start 12/14/16 at 23:00 Vancomycin HCl 800 mg/Sodium Chloride 258 ml @ 250 mls/hr Q12H IV ; Start 12/15 at 04:00; Stop 12/15/16 at 08:42; Status DC Lactated Ringer's 1,000 ml @ 30 mls/hr Q24H PRN IV SEE LABEL COMMENTS; Start at 22:15; Stop 12/17/16 at 22:14 Sodium Chloride (NS 500 ml Inj) 500 ml @ 30 mls/hr [id number] PRN IV SEE LABEL COMMENTS; Start 12/14/16 at 22:15; Stop 12/17/16 at 22:14 Povidone Iodine (Betadine 5% Antisepsis Kit) 1 applic SECURITY PROFESSIONAL PRN EACH NARE SEE LABEL COMMENTS; Start 12/14/16 at 22:15; Stop 12/17/16 at 22:14 Chlorhexidine Gluconate (Chlorhexidine 2% Cloth) 3 pack SECURITY PROFESSIONAL PRN TOPICAL SEE LABEL COMMENTS; Start 12/14/16 at 22:15; Stop 12/17/16 at 22:14 Insulin Human Regular See Protocol Table ... SECURITY PROFESSIONAL PRN SQ SEE PROTOCOL TABLE ; Start 12/14/16 at 22:15; Stop 12/17/16 at 22:14 Vancomycin HCl/ Sodium Chloride (Vancomycin Inj/ NS 250 ml Inj) 257.5 ml @ 250 mls/hr Q8H IV Last administered on 12/15/16 20:05; Start 12/15/16 at 12:00 Miscellaneous Information SPECIFIC LAB TO BE DRAWN:VANCOMYCIN TROUGH DATE TO... ONCE ONCE .XX ; Start 12/16/16 at 03:45; Stop 12/16/16 at 03:46; Status DC Hydromorphone HCl (Dilaudid Pf Inj) 0.5 mg Q4H PRN IV PUSH PAIN NOT RELEIVED BY TORADOL Last administered on 12/15/16 14:27; Start 12/15/16 at 09:30; Stop 12/15/16 at 16:00; Status DC Nicotine (Habitrol 14 Mg Patch.24 Hr) 1 patch DAILY T-DERMAL Last administered on 12/15/16 09:43; Start 12/15/16 at 10:00 Miscellaneous Information 1 HS T-DERMAL Last administered on 12/15/16 23:14; Start 12/15/16 at 21:00 Gadodiamide (Omniscan Pf Inj) 9 ml STK-MED ONCE IV Last administered on 18:16; Start 12/15/16 at 18:16; Stop 12/15/16 at 18:17; Status DC Bupivacaine HCl (Marcaine Pf 0.5% Inj) 30 ml STK-MED ONCE .ROUTE ; Start at 19:34; Stop 12/15/16 at 19:35; Status DC Bacitracin (Baciguent Oint) 15 applic STK-MED ONCE .ROUTE ; Start 12/15/16 at 19 :35; Stop 12/15/16 at 19:36; Status DC Lidocaine/ Epinephrine (Xylocaine-Epi 1%-1:100,000 Inj) 20 ml STK-MED ONCE .ROUTE ; Start 12/15/16 at 19:35; Stop 12/15/16 at 19:36; Status DC Lidocaine HCl (Xylocaine 2% Inj) 50 ml STK-MED ONCE .ROUTE Last administered on 12/15/16 20:35; Start 12/15/16 at 20:34; Stop 12/15/16 at 20:35; Status DC Neomycin/Polymyxin (Neosporin G.u. Irr) 2 ml STK-MED ONCE TOPICAL Last administered on 12/15/16 20:35; Start 12/15/16 at 20:35; Stop 12/15/16 at 21:02 ; Status DC Midazolam HCl (Versed Inj) 4 mg STK-MED ONCE .ROUTE ; Start 12/15/16 at 21:44; Stop 12/15/16 at 21:45; Status DC Fentanyl Citrate (fentaNYL INJ) 250 mcg STK-MED ONCE .ROUTE ; Start 12/15/16 at 21:45; Stop 12/15/16 at 21:46; Status DC Miscellaneous Information ALL NURSING DEPARTME... UNSCH PRN .XX SEE LABEL COMMENTS; Start 12/15/16 at 21:33; Stop 12/16/16 at 21:32 Morphine Sulfate (Morphine Inj) 4 mg STK-MED ONCE .ROUTE Last administered on 22:34; Start 12/15/16 at 22:34; Stop 12/15/16 at 22:35; Status DC Acetaminophen/ Hydrocodone Bitart ([place] 10-325 Mg) 1 tab ONCE ONCE PO Last administered on 12/16/16 02:27; Start 12/16/16 at 02:15; Stop 12/16/16 at 02:17 ; Status DC A/P Assessment and Plan A/P Right index finger osteomyelitis: Failed outpatient therapy with Bactrim. Finger x-ray shows second digit soft tissue swelling with oblique distal phalanx fracture and findings suggesting osteomyelitis. MRI of the right hand with osteomyelitis of the second finger s/p I&D right index finger, partial amputation right index finger at level of PIP joint with closure of amputation and packing in palm -Continue IV antibiotics with vancomycin and Zosyn -ID consulted -Pain control ; will start norco with IV dilaudid for breakthrough pain- will taper off the IV narcotics soon when the pain is better controlled. -Follow up wound and blood cultures IV drug abuse: Cessation counseling. Arnoldo Easton MD Dec 16, 2016 09:02
[2016-12-16] MEDS: SODIUM CHLOR 0.9% 1000 ML INJ 1,000 ML IV SCH (09:30)
[2016-12-16 09:40] VITALS: BP 122/60; PULSE 56; RESP 16; TEMP 97; O2SAT 96
[2016-12-16] MEDS: NICOTINE 14 MG/24 HR PATCH T-DERMAL SCH (09:50)
[2016-12-16] MEDS: ACETAMINOPHEN/HYDROcodone 325 MG/7.5 MG TAB PO PRN ×3 (09:50→20:18)
[2016-12-16] MEDS: HYDROmorphone HCL PF 1 MG/ML VIAL IV PUSH PRN ×3 (10:52→21:07)
[2016-12-16 12:00] VITALS: BP 121/58; PULSE 53; RESP 18; TEMP 96.8; O2SAT 98
--- NOTE | 2016-12-16 15:04 | RADRPT ---
EXAM DATE/TIME: 12/16/2016 12:21 [facility] COMPARISON: MRI HAND RIGHT W & W/O CONTRAST, December 15, 2016, 16:47. INDICATIONS : Post surgery right hand second finger infection MEDICAL HISTORY : Cellulitis. SURGICAL HISTORY : Right heel surgery. Abscess removed from wrist. ENCOUNTER: Subsequent ACUITY: 1 week PAIN SCORE: 10/10 LOCATION: Right Hand FINDINGS: Two view examination of the right hand demonstrates postop changes following partial amputation of th e second digit. The mid phalanx has been amputated to the proximal interphalangeal joint. Remaining bony margins are well delineated without evidence of destructive changes. CONCLUSION: Status post partial amputation of the right second digit. Jake Hickey MD on December 16, 2016 at 14:53 Board Certified Radiologist. This report was verified electronically.
[2016-12-16 16:00] VITALS: BP 124/65; PULSE 69; RESP 18; TEMP 97.7; O2SAT 97
--- NOTE | 2016-12-16 16:50 | MB ---
cc: LEIDA REHMAN MD DATE OF CONSULTATION 12/16/[address] Flores REASON FOR CONSULTATION Osteomyelitis of the right index finger. HISTORY OF PRESENT ILLNESS This is a 26-year-old white female who presents to the emergency department with pain and swelling of the right index finger. The patient has a history of IV drug use, but she denied injecting any IV drugs into her finger. She states that she has not used IV drugs for over six months. She has a [id number] daughter and tells me that she had stopped using after her daughter was born. She states that she was opening a container with formula for her daughter and cut her index finger on the edge of one of the containers and it subsequently became swollen. She was evaluated by [facility] in [place] and she was put on Bactrim. She did not notice any improvement but rather the finger started to turn blue and that prompted her to come to the emergency department here for evaluation. She was evaluated by the hand surgeon and she was taken to surgery and underwent amputation of the distal aspect of the index finger. The patient was noted to have paresthesia of the index finger. MRI of the finger showed osteomyelitis of the distal and middle phalanx of the right index finger and the patient was noted to have swelling going into the palm. Currently, the patient states that she has severe pain in the finger. Otherwise, she has no other complaints. Culture from the wound on 12/14 has MRSA. The surgical culture also has growth of organisms not yet identified. The gram stain had revealed gram-positive cocci in pairs and chains. The patient has no other complaints. PAST MEDICAL HISTORY Multiple hospital admissions for various areas of abscess of extremities including the left hand, left elbow, right foot and bilateral forearm. Cultures previously grew MRSA and staph aureus. History of multiple I&Ds. ALLERGIES CIPRO SEPTRA PHENERGAN MEDICATIONS 1. [place] 7.5 2. Dilaudid p.r.n. 3. Vancomycin. 4. Piperacillin/Tazobactam. 5. Nicotine patch. SOCIAL HISTORY The patient smokes half-a-pack of cigarettes a day. No alcohol use. She denies IV drug use to me. FAMILY HISTORY Noncontributory. REVIEW OF SYSTEMS Negative on 10-point review except for pain in the right hand. PHYSICAL EXAMINATION GENERAL: This is a slender female who is in no acute distress. She is awake, alert and oriented. VITAL SIGNS: Temperature 96.8, BP 121/58, respirations 18, heart rate 53. HEENT: Head is atraumatic. Extraocular movements grossly intact, pupils reactive to light. No icterus. Oropharynx - no visible lesions. NECK: Supple without adenopathy. LUNGS: Clear breath sounds HEART: Regular S1-S2 without murmurs, rubs or gallops. ABDOMEN: Bowel sounds present, flat, soft, no tenderness. RECTAL: Not performed. EXTREMITIES: The right hand is wrapped in A surgical dressing with Tres bandage wrap. This was not removed for inspection at this time. The patient has an area that feels like A cord at the right forearm extending from the right wrist area. No significant erythema. SKIN: No diffuse rash. NEUROLOGIC: Patient is alert and oriented. No gross focal abnormality. LABORATORY DATA WBC 6.8, sedimentation rate 29, platelet count 231. Creatinine 0.65, BUN eight, estimated GFR 109. IMPRESSION Osteomyelitis of the right index finger. Patient is status post partial amputation. Culture with MRSA. RECOMMENDATIONS 1. Continue vancomycin for now. 2. Discontinue piperacillin/Tazobactam 3. Further determination on antibiotics IV versus p.o. depending on the status of the wound which will be evaluated by the orthopedic surgeon tomorrow. If the wound is looking good, she may be able to go on p.o. antibiotics unless the MRSA is resistant. Since she has had orthopedic surgical intervention with amputation of the index finger, she probably will need about a week more of antibiotics and the healing should be monitored closely. Thank you this consultation. The patient's progress will be monitored and further recommendations will be given on followup. Leida Rehman MD FD/ /3:56 PM /4:37 PM
[2016-12-16 20:00] VITALS: BP_SYST 127; BP_SYST 153; BP_DIAS 61; BP_DIAS 78; PULSE 62; PULSE 93; RESP 20; TEMP 97.4; TEMP 99.5; O2SAT 92; O2SAT 98
[2016-12-16] MEDS: REMOVE OLD NICODERM (NICOTINE) PATCH T-DERMAL SCH (21:00)
[2016-12-17] VITALS: BP 135/61; PULSE 62; RESP 20; TEMP 97.7; O2SAT 98
[2016-12-17] MEDS: ACETAMINOPHEN/HYDROcodone 325 MG/7.5 MG TAB PO PRN ×5 (00:44→23:13)
[2016-12-17] MEDS: HYDROmorphone HCL PF 1 MG/ML VIAL IV PUSH PRN ×5 (02:22→21:10)
[2016-12-17] MEDS: VANCOMYCIN INJ 750 MG in SODIUM CHLOR 0.9% 250 ML INJ 250 ML IV SCH ×3 (05:17→21:09)
[2016-12-17 08:00] VITALS: BP 126/60; PULSE 51; RESP 17; TEMP 96.6; O2SAT 90
[2016-12-17] MEDS: NICOTINE 14 MG/24 HR PATCH T-DERMAL SCH (09:22)
--- NOTE | 2016-12-17 09:49 | HHI.PR ---
Subjective Remarks looks more comfortable today. pain is somewhat better. no fever. no other complaints. Objective Vitals Vital Signs Date Time Temp Pulse Resp B/P Pulse Ox O2 Delivery O2 Flow Rate FiO2 12/17/16 08:00 96.6 51 17 126/60 90 12/17/16 07:03 18 12/17/16 06:17 18 12/17/16 00:00 97.7 62 20 135/61 98 12/16/16 20:00 97.4 62 20 127/61 98 12/16/16 16:00 97.7 69 18 124/65 97 12/16/16 12:00 96.8 53 18 121/58 98 I/O 12/16/16 12/16/16 12/16/16 12/17/16 12/17/16 12/17/16 07:00 15:00 23:00 07:00 15:00 23:00 Intake Total 530 ml 480 ml 0 ml 240 ml Balance 530 ml 480 ml 0 ml 240 ml Intake Oral 480 ml 480 ml 0 ml 240 ml IV Total 50 ml # Voids 2 5 3 2 # Bowel Movements 0 0 0 Result Diagram: 12/14/16 1553 12/14/16 1553 Imaging Last Impressions Hand X-Ray 12/16/16 0000 Signed Impressions: Service Date/Time: November 12:21 - CONCLUSION: Status post partial amputation of the right second digit. Jake Hickey MD Hand MRI 12/15/16 0000 Signed Impressions: Service Date/Time: Thursday, December 15, 2016 16:47 - CONCLUSION: Cellulitis with marrow changes consistent with osteo-myelitis involving the second digit extending from middle phalanx through distal phalanx. There is a fracture of the distal end of the middle phalanges as well. Hermes Zhao MD FACR Chest X-Ray 12/14/16 1448 Signed Impressions: Service Date/Time: Wednesday, December 14, 2016 15:44 - CONCLUSION: No acute disease. Romulo Hauser MD Finger X-Ray 12/14/16 0000 Signed Impressions: Service Date/Time: Wednesday, December 14, 2016 15:47 - CONCLUSION: Abnormal soft tissue swelling second digit with oblique distal phalanx fracture and cortical irregularity head of the second middle phalanx suggesting osteomyelitis. Sean Mcgee MD Objective Remarks GENERAL: in no apparent distress but uncomfortable with the pain CARDIOVASCULAR: Regular rate and regular rhythm without murmurs, gallops, or rubs. RESPIRATORY: Clear to auscultation. Breath sounds equal bilaterally. No wheezes , rales, or rhonchi. GASTROINTESTINAL: Abdomen soft, non-tender, nondistended. Normal, active bowel sounds MUSCULOSKELETAL:lower extremities without clubbing, cyanosis, or edema- right index finger significantly swollen and tender NEURO: Alert & Oriented x4 to person, place, time, situation. Moves all ext x4 skin; erythema over the right index finger psych; somewhat anxious about the surgery Procedures I&D right index finger, partial amputation right index finger at level of PIP joint with closure of amputation and packing in palm Medications and IVs Current Medications Sodium Chloride 1,000 ml @ 1,000 mls/hr Q1H ONCE IV Last administered on 16:01; Start 12/14/16 at 14:48; Stop 12/14/16 at 15:47; Status DC Sodium Chloride 800 ml @ 1,000 mls/hr Q48M ONCE IV Last administered on 16:01; Start 12/14/16 at 14:48; Stop 12/14/16 at 15:35; Status DC Piperacillin Sod/ Tazobactam Sod 100 ml @ 200 mls/hr ONCE STAT IV Last administered on 12/14/16 17:23; Start 12/14/16 at 14:56; Stop 12/14/16 at 15:25 ; Status DC Vancomycin HCl/ Sodium Chloride (Vancomycin Inj/ NS 250 ml Inj) 250 ml @ 250 mls/hr ONCE STAT IV Last administered on 12/14/16 16:02; Start 12/14/16 at 14 :56; Stop 12/14/16 at 15:55; Status DC Morphine Sulfate (Morphine Inj) 4 mg ONCE ONCE IV PUSH Last administered on 17:23; Start 12/14/16 at 16:45; Stop 12/14/16 at 16:46; Status DC Ondansetron HCl 4 mg 4 mg ONCE ONCE IV PUSH Last administered on 12/14/16 17: 22; Start 12/14/16 at 16:45; Stop 12/14/16 at 16:46; Status DC Sodium Chloride (NS 1000 ml Inj) 1,000 ml @ 100 mls/hr Q10H IV ; Start at 17:30 Ketorolac Tromethamine 15 mg 15 mg Q6H PRN IV PUSH PAIN Last administered on 06:52; Start 12/14/16 at 17:30; Stop 12/19/16 at 17:29; Status Hold Pharmacy Profile Note 0 ml @ 0 mls/hr UNSCH OTHER ; Start 12/14/16 at 17:30 Piperacillin Sod/ Tazobactam Sod 50 ml @ 100 mls/hr Q6H IV Last administered on 12/16/16 09:51; Start 12/14/16 at 23:00; Stop 12/16/16 at 16:03; Status DC Vancomycin HCl 800 mg/Sodium Chloride 258 ml @ 250 mls/hr Q12H IV ; Start 12/15 at 04:00; Stop 12/15/16 at 08:42; Status DC Lactated Ringer's 1,000 ml @ 30 mls/hr Q24H PRN IV SEE LABEL COMMENTS; Start at 22:15; Stop 12/17/16 at 22:14 Sodium Chloride (NS 500 ml Inj) 500 ml @ 30 mls/hr [id number] PRN IV SEE LABEL COMMENTS; Start 12/14/16 at 22:15; Stop 12/17/16 at 22:14 Povidone Iodine (Betadine 5% Antisepsis Kit) 1 applic DIVISION SERGEANT PRN EACH NARE SEE LABEL COMMENTS; Start 12/14/16 at 22:15; Stop 12/17/16 at 22:14 Chlorhexidine Gluconate (Chlorhexidine 2% Cloth) 3 pack DIVISION SERGEANT PRN TOPICAL SEE LABEL COMMENTS; Start 12/14/16 at 22:15; Stop 12/17/16 at 22:14 Insulin Human Regular See Protocol Table ... DIVISION SERGEANT PRN SQ SEE PROTOCOL TABLE ; Start 12/14/16 at 22:15; Stop 12/17/16 at 22:14 Vancomycin HCl/ Sodium Chloride (Vancomycin Inj/ NS 250 ml Inj) 257.5 ml @ 250 mls/hr Q8H IV Last administered on 12/17/16 05:17; Start 12/15/16 at 12:00 Miscellaneous Information SPECIFIC LAB TO BE DRAWN:VANCOMYCIN TROUGH DATE TO... ONCE ONCE .XX ; Start 12/16/16 at 03:45; Stop 12/16/16 at 03:46; Status DC Hydromorphone HCl (Dilaudid Pf Inj) 0.5 mg Q4H PRN IV PUSH PAIN NOT RELEIVED BY TORADOL Last administered on 12/15/16 14:27; Start 12/15/16 at 09:30; Stop 12/15/16 at 16:00; Status DC Nicotine (Habitrol 14 Mg Patch.24 Hr) 1 patch DAILY T-DERMAL Last administered on 12/17/16 09:22; Start 12/15/16 at 10:00 Miscellaneous Information 1 HS T-DERMAL Last administered on 12/15/16 23:14; Start 12/15/16 at 21:00 Gadodiamide (Omniscan Pf Inj) 9 ml STK-MED ONCE IV Last administered on 18:16; Start 12/15/16 at 18:16; Stop 12/15/16 at 18:17; Status DC Bupivacaine HCl (Marcaine Pf 0.5% Inj) 30 ml STK-MED ONCE .ROUTE ; Start at 19:34; Stop 12/15/16 at 19:35; Status DC Bacitracin (Baciguent Oint) 15 applic STK-MED ONCE .ROUTE ; Start 12/15/16 at 19 :35; Stop 12/15/16 at 19:36; Status DC Lidocaine/ Epinephrine (Xylocaine-Epi 1%-1:100,000 Inj) 20 ml STK-MED ONCE .ROUTE ; Start 12/15/16 at 19:35; Stop 12/15/16 at 19:36; Status DC Lidocaine HCl (Xylocaine 2% Inj) 50 ml STK-MED ONCE .ROUTE Last administered on 12/15/16 20:35; Start 12/15/16 at 20:34; Stop 12/15/16 at 20:35; Status DC Neomycin/Polymyxin (Neosporin G.u. Irr) 2 ml STK-MED ONCE TOPICAL Last administered on 12/15/16 20:35; Start 12/15/16 at 20:35; Stop 12/15/16 at 21:02 ; Status DC Midazolam HCl (Versed Inj) 4 mg STK-MED ONCE .ROUTE ; Start 12/15/16 at 21:44; Stop 12/15/16 at 21:45; Status DC Fentanyl Citrate (fentaNYL INJ) 250 mcg STK-MED ONCE .ROUTE ; Start 12/15/16 at 21:45; Stop 12/15/16 at 21:46; Status DC Miscellaneous Information ALL NURSING DEPARTME... UNSCH PRN .XX SEE LABEL COMMENTS; Start 12/15/16 at 21:33; Stop 12/16/16 at 21:32; Status DC Morphine Sulfate (Morphine Inj) 4 mg STK-MED ONCE .ROUTE Last administered on 22:34; Start 12/15/16 at 22:34; Stop 12/15/16 at 22:35; Status DC Acetaminophen/ Hydrocodone Bitart ([place] 10-325 Mg) 1 tab ONCE ONCE PO Last administered on 12/16/16 02:27; Start 12/16/16 at 02:15; Stop 12/16/16 at 02:17 ; Status DC Acetaminophen/ Hydrocodone Bitart ([place] 7.5-325 Mg) 1 tab Q4H PRN PO PAIN <5 ; Start 12/16/16 at 09:00 Acetaminophen/ Hydrocodone Bitart ([place] 7.5-325 Mg) 2 tab Q4HR PRN PO PAIN > 5 Last administered on 12/17/16 05:17; Start 12/16/16 at 09:00 Hydromorphone HCl (Dilaudid Pf Inj) 0.5 mg Q4H PRN IV PUSH BREAKTHROUGH PAIN Last administered on 12/17/16 09:19; Start 12/16/16 at 09:00 Miscellaneous Information SPECIFIC LAB TO BE DRAWN:VANCO TROUGH [place]. ONCE ONCE .XX ; Start 12/17/16 at 11:45; Stop 12/17/16 at 11:46 A/P Assessment and Plan A/P Right index finger osteomyelitis: Failed outpatient therapy with Bactrim. Finger x-ray shows second digit soft tissue swelling with oblique distal phalanx fracture and findings suggesting osteomyelitis. MRI of the right hand with osteomyelitis of the second finger s/p I&D right index finger, partial amputation right index finger at level of PIP joint with closure of amputation and packing in palm -Continue IV antibiotics with vancomycin . -ID consult appreciated. -continue with pain control. -Follow up wound and blood cultures IV drug abuse: Cessation counseling. Discharge Planning dc home when cleared by consultants. Arnoldo Easton MD Dec 17, 2016 09:49
[2016-12-17] MEDS ORDERED: PHARMACY ORDERED LAB ONE (11:45)
[2016-12-17 12:00] VITALS: BP 133/62; PULSE 52; RESP 17; TEMP 96.4; O2SAT 98
[2016-12-17] MEDS: SODIUM CHLOR 0.9% 1000 ML INJ 1,000 ML IV SCH ×2 (15:30→23:54)
--- NOTE | 2016-12-17 15:40 | MP ---
cc: LENA FLORES DATE OF SURGERY 12/15/2016 PREOPERATIVE DIAGNOSIS Osteomyelitis right index finger with open chronic wound. POSTOPERATIVE DIAGNOSIS Osteomyelitis right index finger with open chronic wound. PROCEDURE 1. Irrigation, debridement flexor tendon sheath, right index finger. 2. Revision amputation right index finger through the proximal interphalangeal joint. SURGEON Dr. Lena Flores. ANESTHESIA General and local. TOURNIQUET TIME 20 minutes at 250 mmHg. SPECIMEN Culture x2. Specimen for pathology. INDICATIONS FOR PROCEDURE Winsome Reyes is as a 26-year-old female with a past medical history significant for IV drug use with multiple MRSA abscesses in the past over her body including her hand, feet and other areas. She presented to the emergency room yesterday after she was seen approximately 10 days prior at an outside facility and given Bactrim. She reports no improvement and significant worsening over the finger. She reports necrosis of the fingertip with exposed tendons. She is unable to move the finger at the level of the PIP joint. She denies any sensation at the tip of the finger. MRI showed osteomyelitis of the distal and middle phalanx. Treatment options were discussed at length with the patient including continued antibiotics, irrigation, debridement versus amputation and she elected to proceed with surgery as indicated, likely irrigation, debridement of the finger with revision amputation through the PIP joint. Risks were explained but limited to sepsis, , wound complications, stiffness, pain, need for additional surgeries, need for amputation, PE, DVT and she elects to proceed. DESCRIPTION OF PROCEDURE The patient was taken to the operating room where anesthesia was induced. The right upper extremity was prepped and draped in the normal sterile fashion. A digital block was performed using 15 cc of 2% lidocaine with no epinephrine. An incision was made over the A1 amish to perform irrigation, debridement of the flexor tendon sheath of the right index finger as the MRI showed some edema proximally. Cultures were taken. The entire distal and middle phalanx was exposed with exposed tendon. The bone was very soft and the collateral ligaments were already eroded. Tourniquet was inflated. The decision was made to perform an amputation through the PIP joint. Again, osteomyelitis was confirmed by the MRI as well as the examination. Another culture was taken as well as the amputated finger, was sent for pathology. The wound was irrigated with 6 liters of antibiotic saline. Then neurectomies were performed and direct closure was performed over the PIP joint. A small amount of packing was placed over the palm. The patient was awoken from anesthesia without any complications. She will be evaluated by infectious disease for antibiotic management. MD AMY Wolf/KANDICE /10:48 PM /3:35 PM MTDInes
[2016-12-17 16:00] VITALS: BP 124/63; PULSE 67; RESP 17; TEMP 98.6; O2SAT 97
--- NOTE | 2016-12-17 17:17 | HHI.IDPN ---
Note Infectious Disease Note patient without complaints. Afebrile. Wound surgical culture has MRSA. Patient says she has tolerated Bactrim without difficulty. she was on Bactrim prior to admission. PAST MEDICAL HISTORY Multiple hospital admissions for various areas of abscess of extremities including the left hand, left elbow, right foot and bilateral forearm. ALLERGIES CIPRO SEPTRA PHENERGAN ANTIBIOTICS Vancomycin. SOCIAL HISTORY The patient smokes half-a-pack of cigarettes a day. No alcohol use. She denies IV drug use to me. OBJECTIVE: Vital Signs Date Time Temp Pulse Resp B/P Pulse Ox O2 Delivery O2 Flow Rate FiO2 12/17/16 16:00 98.6 67 17 124/63 97 12/17/16 12:00 96.4 52 17 133/62 98 12/17/16 09:49 18 12/17/16 08:00 96.6 51 17 126/60 90 12/17/16 06:17 18 12/17/16 00:00 97.7 62 20 135/61 98 12/16/16 20:00 97.4 62 20 127/61 98 Microbiology Date/Time Procedure Status Source Growth 12/15/16 21:15 Gram Stain - Final Complete Wound Finger 12/15/16 21:15 Wound Culture - Final Complete S. Aureus Mrsa 12/15/16 21:15 Acid Fast Stain - Final Resulted Wound Finger NO ACID FAST BACILLI SEEN 12/15/16 21:15 Mycobacterial Culture Resulted Wound Finger Pending 12/15/16 21:15 Fungal Smear - Final Resulted Wound Finger NO FUNGAL ELEMENTS SEEN. 12/15/16 21:15 Fungal Culture Resulted Wound Finger Pending 12/15/16 21:15 Gram Stain - Final Complete Wound Hand 12/15/16 21:15 Wound Culture - Final Complete S. Aureus Mrsa 12/15/16 21:15 Acid Fast Stain - Final Resulted Wound Hand NO ACID FAST BACILLI SEEN 12/15/16 21:15 Mycobacterial Culture Resulted Wound Hand Pending 12/15/16 21:15 Fungal Smear - Final Resulted Wound Hand NO FUNGAL ELEMENTS SEEN. 12/15/16 21:15 Fungal Culture Resulted Wound Hand Pending PHYSICAL EXAMINATION GENERAL: This is a slender female who is in no acute distress. HEENT: No icterus. Oropharynx - no visible lesions. NECK: Supple without adenopathy. LUNGS: Clear breath sounds HEART: Regular S1-S2 without murmurs, rubs or gallops. ABDOMEN: Bowel sounds present, soft, no tenderness. EXTREMITIES: The right hand is wrapped in A surgical dressing with Tres bandage wrap. This was not removed for inspection at this time. The patient has an area that feels like A cord at the right forearm extending from the right wrist area. No significant erythema. SKIN: No diffuse rash. NEUROLOGIC: Patient is alert and oriented. No gross focal abnormality. LABORATORY DATA WBC 6.8, sedimentation rate 29, platelet count 231. Creatinine 0.65, BUN eight, estimated GFR 109. IMPRESSION Osteomyelitis of the right index finger. Patient is status post partial amputation. Culture with MRSA. Hand surgery has requested that the wound dressing not be removed. Hand surgeon will be checking the wound tomorrow. RECOMMENDATIONS 1. Continue vancomycin for now. 2. Change to a combination of PO Bactrim and doxycycline x 10 days if okay with hand surgeon. Can be discharged if cleared by hand surgeon. Dante Esteban MD Dec 17, 2016 17:17
[2016-12-17 20:00] VITALS: BP 137/65; PULSE 73; RESP 16; TEMP 97.8; O2SAT 97
[2016-12-17] MEDS: REMOVE OLD NICODERM (NICOTINE) PATCH T-DERMAL SCH (21:08)
[2016-12-18] VITALS: BP 129/60; PULSE 72; RESP 16; TEMP 97.6; O2SAT 96
[2016-12-18] MEDS: HYDROmorphone HCL PF 1 MG/ML VIAL IV PUSH PRN ×3 (00:57→09:00)
[2016-12-18] MEDS: VANCOMYCIN INJ 750 MG in SODIUM CHLOR 0.9% 250 ML INJ 250 ML IV SCH (04:57)
[2016-12-18] MEDS: ACETAMINOPHEN/HYDROcodone 325 MG/7.5 MG TAB PO PRN ×2 (06:03→10:20)
[2016-12-18 08:00] VITALS: BP 120/56; PULSE 51; RESP 16; TEMP 97.3; O2SAT 97
--- NOTE | 2016-12-18 08:55 | HHI.PR ---
Subjective Remarks resting comfortably with no distress. has some pain to the right hand. no fever. Objective Vitals Vital Signs Date Time Temp Pulse Resp B/P Pulse Ox O2 Delivery O2 Flow Rate FiO2 12/18/16 08:00 97.3 51 16 120/56 97 12/18/16 04:00 Room Air 12/18/16 00:00 97.6 72 16 129/60 96 12/18/16 00:00 Room Air 12/17/16 20:00 Room Air 12/17/16 20:00 97.8 73 16 137/65 97 12/17/16 16:00 98.6 67 17 124/63 97 12/17/16 15:59 20 12/17/16 14:03 18 12/17/16 12:00 96.4 52 17 133/62 98 I/O 12/17/16 12/17/16 12/17/16 12/18/16 12/18/16 12/18/16 07:00 15:00 23:00 07:00 15:00 23:00 Intake Total 240 ml 440 ml 730 ml 490 ml Balance 240 ml 440 ml 730 ml 490 ml Intake Oral 240 ml 440 ml 480 ml 240 ml IV Total 250 ml 250 ml # Voids 2 5 3 3 # Bowel Movements 0 1 0 1 Result Diagram: 12/14/16 1553 12/14/16 1553 Imaging Last Impressions Hand X-Ray 12/16/16 0000 Signed Impressions: Service Date/Time: November 12:21 - CONCLUSION: Status post partial amputation of the right second digit. Jake Hickey MD Hand MRI 12/15/16 0000 Signed Impressions: Service Date/Time: Thursday, December 15, 2016 16:47 - CONCLUSION: Cellulitis with marrow changes consistent with osteo-myelitis involving the second digit extending from middle phalanx through distal phalanx. There is a fracture of the distal end of the middle phalanges as well. Hermes Zhao MD FACR Chest X-Ray 12/14/16 1448 Signed Impressions: Service Date/Time: Wednesday, December 14, 2016 15:44 - CONCLUSION: No acute disease. Romulo Hauser MD Finger X-Ray 12/14/16 0000 Signed Impressions: Service Date/Time: Wednesday, December 14, 2016 15:47 - CONCLUSION: Abnormal soft tissue swelling second digit with oblique distal phalanx fracture and cortical irregularity head of the second middle phalanx suggesting osteomyelitis. Sean Mcgee MD Objective Remarks GENERAL: in no apparent distress but uncomfortable with the pain CARDIOVASCULAR: Regular rate and regular rhythm without murmurs, gallops, or rubs. RESPIRATORY: Clear to auscultation. Breath sounds equal bilaterally. No wheezes , rales, or rhonchi. GASTROINTESTINAL: Abdomen soft, non-tender, nondistended. Normal, active bowel sounds MUSCULOSKELETAL:lower extremities without clubbing, cyanosis, or edema- right index finger significantly swollen and tender NEURO: Alert & Oriented x4 to person, place, time, situation. Moves all ext x4 skin; erythema over the right index finger psych; somewhat anxious about the surgery Procedures I&D right index finger, partial amputation right index finger at level of PIP joint with closure of amputation and packing in palm Medications and IVs Current Medications Sodium Chloride 1,000 ml @ 1,000 mls/hr Q1H ONCE IV Last administered on 16:01; Start 12/14/16 at 14:48; Stop 12/14/16 at 15:47; Status DC Sodium Chloride 800 ml @ 1,000 mls/hr Q48M ONCE IV Last administered on 16:01; Start 12/14/16 at 14:48; Stop 12/14/16 at 15:35; Status DC Piperacillin Sod/ Tazobactam Sod 100 ml @ 200 mls/hr ONCE STAT IV Last administered on 12/14/16 17:23; Start 12/14/16 at 14:56; Stop 12/14/16 at 15:25 ; Status DC Vancomycin HCl/ Sodium Chloride (Vancomycin Inj/ NS 250 ml Inj) 250 ml @ 250 mls/hr ONCE STAT IV Last administered on 12/14/16 16:02; Start 12/14/16 at 14 :56; Stop 12/14/16 at 15:55; Status DC Morphine Sulfate (Morphine Inj) 4 mg ONCE ONCE IV PUSH Last administered on 17:23; Start 12/14/16 at 16:45; Stop 12/14/16 at 16:46; Status DC Ondansetron HCl 4 mg 4 mg ONCE ONCE IV PUSH Last administered on 12/14/16 17: 22; Start 12/14/16 at 16:45; Stop 12/14/16 at 16:46; Status DC Sodium Chloride (NS 1000 ml Inj) 1,000 ml @ 100 mls/hr Q10H IV ; Start at 17:30 Ketorolac Tromethamine 15 mg 15 mg Q6H PRN IV PUSH PAIN Last administered on 06:52; Start 12/14/16 at 17:30; Stop 12/19/16 at 17:29; Status Hold Pharmacy Profile Note 0 ml @ 0 mls/hr UNSCH OTHER ; Start 12/14/16 at 17:30 Piperacillin Sod/ Tazobactam Sod 50 ml @ 100 mls/hr Q6H IV Last administered on 12/16/16 09:51; Start 12/14/16 at 23:00; Stop 12/16/16 at 16:03; Status DC Vancomycin HCl 800 mg/Sodium Chloride 258 ml @ 250 mls/hr Q12H IV ; Start 12/15 at 04:00; Stop 12/15/16 at 08:42; Status DC Lactated Ringer's 1,000 ml @ 30 mls/hr Q24H PRN IV SEE LABEL COMMENTS; Start at 22:15; Stop 12/17/16 at 22:49; Status DC Sodium Chloride (NS 500 ml Inj) 500 ml @ 30 mls/hr [id number] PRN IV SEE LABEL COMMENTS; Start 12/14/16 at 22:15; Stop 12/17/16 at 22:49; Status DC Povidone Iodine (Betadine 5% Antisepsis Kit) 1 applic BASKET SORTER PRN EACH NARE SEE LABEL COMMENTS; Start 12/14/16 at 22:15; Stop 12/17/16 at 22:49; Status DC Chlorhexidine Gluconate (Chlorhexidine 2% Cloth) 3 pack BASKET SORTER PRN TOPICAL SEE LABEL COMMENTS; Start 12/14/16 at 22:15; Stop 12/17/16 at 22:49; Status DC Insulin Human Regular See Protocol Table ... BASKET SORTER PRN SQ SEE PROTOCOL TABLE ; Start 12/14/16 at 22:15; Stop 12/17/16 at 22:49; Status DC Vancomycin HCl/ Sodium Chloride (Vancomycin Inj/ NS 250 ml Inj) 257.5 ml @ 250 mls/hr Q8H IV Last administered on 12/18/16 04:57; Start 12/15/16 at 12:00 Miscellaneous Information SPECIFIC LAB TO BE DRAWN:VANCOMYCIN TROUGH DATE TO... ONCE ONCE .XX ; Start 12/16/16 at 03:45; Stop 12/16/16 at 03:46; Status DC Hydromorphone HCl (Dilaudid Pf Inj) 0.5 mg Q4H PRN IV PUSH PAIN NOT RELEIVED BY TORADOL Last administered on 12/15/16 14:27; Start 12/15/16 at 09:30; Stop 12/15/16 at 16:00; Status DC Nicotine (Habitrol 14 Mg Patch.24 Hr) 1 patch DAILY T-DERMAL Last administered on 12/17/16 09:22; Start 12/15/16 at 10:00 Miscellaneous Information 1 HS T-DERMAL Last administered on 12/17/16 21:08; Start 12/15/16 at 21:00 Gadodiamide (Omniscan Pf Inj) 9 ml STK-MED ONCE IV Last administered on 18:16; Start 12/15/16 at 18:16; Stop 12/15/16 at 18:17; Status DC Bupivacaine HCl (Marcaine Pf 0.5% Inj) 30 ml STK-MED ONCE .ROUTE ; Start at 19:34; Stop 12/15/16 at 19:35; Status DC Bacitracin (Baciguent Oint) 15 applic STK-MED ONCE .ROUTE ; Start 12/15/16 at 19 :35; Stop 12/15/16 at 19:36; Status DC Lidocaine/ Epinephrine (Xylocaine-Epi 1%-1:100,000 Inj) 20 ml STK-MED ONCE .ROUTE ; Start 12/15/16 at 19:35; Stop 12/15/16 at 19:36; Status DC Lidocaine HCl (Xylocaine 2% Inj) 50 ml STK-MED ONCE .ROUTE Last administered on 12/15/16 20:35; Start 12/15/16 at 20:34; Stop 12/15/16 at 20:35; Status DC Neomycin/Polymyxin (Neosporin G.u. Irr) 2 ml STK-MED ONCE TOPICAL Last administered on 12/15/16 20:35; Start 12/15/16 at 20:35; Stop 12/15/16 at 21:02 ; Status DC Midazolam HCl (Versed Inj) 4 mg STK-MED ONCE .ROUTE ; Start 12/15/16 at 21:44; Stop 12/15/16 at 21:45; Status DC Fentanyl Citrate (fentaNYL INJ) 250 mcg STK-MED ONCE .ROUTE ; Start 12/15/16 at 21:45; Stop 12/15/16 at 21:46; Status DC Miscellaneous Information ALL NURSING DEPARTME... UNSCH PRN .XX SEE LABEL COMMENTS; Start 12/15/16 at 21:33; Stop 12/16/16 at 21:32; Status DC Morphine Sulfate (Morphine Inj) 4 mg STK-MED ONCE .ROUTE Last administered on 22:34; Start 12/15/16 at 22:34; Stop 12/15/16 at 22:35; Status DC Acetaminophen/ Hydrocodone Bitart ([place] 10-325 Mg) 1 tab ONCE ONCE PO Last administered on 12/16/16 02:27; Start 12/16/16 at 02:15; Stop 12/16/16 at 02:17 ; Status DC Acetaminophen/ Hydrocodone Bitart ([place] 7.5-325 Mg) 1 tab Q4H PRN PO PAIN <5 Last administered on 12/17/16 10:28; Start 12/16/16 at 09:00 Acetaminophen/ Hydrocodone Bitart ([place] 7.5-325 Mg) 2 tab Q4HR PRN PO PAIN > 5 Last administered on 12/18/16 06:03; Start 12/16/16 at 09:00 Hydromorphone HCl (Dilaudid Pf Inj) 0.5 mg Q4H PRN IV PUSH BREAKTHROUGH PAIN Last administered on 12/18/16 04:57; Start 12/16/16 at 09:00 Miscellaneous Information SPECIFIC LAB TO BE DRAWN:VANCO TROUGH DATE TO BE ONCE ONCE .XX ; Start 12/17/16 at 11:45; Stop 12/17/16 at 11:46; Status DC Miscellaneous Information SPECIFIC LAB TO BE DRAWN:VANCO TROUGH DATE TO BE DR... ONCE ONCE .XX ; Start 12/18/16 at 11:45; Stop 12/18/16 at 11:46 A/P Assessment and Plan A/P Right index finger osteomyelitis: Failed outpatient therapy with Bactrim. Finger x-ray shows second digit soft tissue swelling with oblique distal phalanx fracture and findings suggesting osteomyelitis. MRI of the right hand with osteomyelitis of the second finger s/p I&D right index finger, partial amputation right index finger at level of PIP joint with closure of amputation and packing in palm blood cultures negative and wound culture with MRSA -Continue IV antibiotics with vancomycin . -ID follow-up appreciated; recommended po bactrim and Doxycycline for ten days. -continue with pain control. IV drug abuse: Cessation counseling. Discharge Planning dc home today. see med list. f/u with pcp , wound care clinic and hand surgery upon discharge. d/w the patient. Arnoldo Easton MD Dec 18, 2016 08:54
[2016-12-18] MEDS ORDERED: NORC5TAB PO (08:57)
[2016-12-18] MEDS ORDERED: DOXY100C PO (08:57)
[2016-12-18] MEDS ORDERED: BACT800T5 PO (08:57)
--- NOTE | 2016-12-18 08:57 | HHI.DCPOC ---
Discharge Care Plan Diagnosis: (1) Cellulitis of right foot Your Health Problems Are: Inflammation Swelling Goals to Promote Your Health * To prevent worsening of your condition and complications * To maintain your health at the optimal level Directions to Meet Your Goals Take your medications as prescribed Follow your dietary instruction Follow activity as directed Keep your appointments as scheduled Take your immunizations and boosters as scheduled If your symptoms worsen call your PCP, if no PCP go to Urgent Care Center or Emergency Room Smoking is Dangerous to Your Health. Avoid second hand smoke Call the 24-hour hour crisis hotline for domestic abuse at Arnoldo Easton MD Dec 18, 2016 08:57
--- NOTE | 2016-12-18 08:58 | HHI.DS ---
Discharge Summary Admission Date Dec 14, 2016 at 17:01 Discharge Date: Dec 18, 2016 Admitting Diagnosis R 2nd digit osteomyelitis; r 2nd digit necrotic wound; IVDA (1) Osteomyelitis of finger of right hand ICD Code: M86.9 Diagnosis: Principal Procedures I&D right index finger, partial amputation right index finger at level of PIP joint with closure of amputation and packing in palm Brief History - From Admission Written by Vinnie Carvajal, acting as scribe for Dr. Easton on 12/14/16 at 17:13. 26-year-old female with past medical history of IVDA and MRSA infections who presented with right index finger infection. The patient states that she has been having worsening infection of her right index finger. She says that she had been having fevers and swelling of her right index finger so she went to the ED at [facility]. Patient states that she was prescribed a 10 day course of Bactrim. She states that her finger infection has continued to get worse. She has taken 9-1/2 days of her Bactrim and presented here today for extreme pain and swelling of her right index finger. She denies injecting any IV drugs and her finger. She reports pain when she tries to move her finger. Hand surgery was contacted from the ED and recommended keeping the patient nothing by mouth until evaluation. CBC/BMP: 12/14/16 1553 12/14/16 1553 Imaging Last Impressions Hand X-Ray 12/16/16 0000 Signed Impressions: Service Date/Time: November 12:21 - CONCLUSION: Status post partial amputation of the right second digit. Jake Hickey MD Hand MRI 12/15/16 0000 Signed Impressions: Service Date/Time: Thursday, December 15, 2016 16:47 - CONCLUSION: Cellulitis with marrow changes consistent with osteo-myelitis involving the second digit extending from middle phalanx through distal phalanx. There is a fracture of the distal end of the middle phalanges as well. Hermes Zhao MD FACR Chest X-Ray 12/14/16 1448 Signed Impressions: Service Date/Time: Wednesday, December 14, 2016 15:44 - CONCLUSION: No acute disease. Romulo Hauser MD Finger X-Ray 12/14/16 0000 Signed Impressions: Service Date/Time: Wednesday, December 14, 2016 15:47 - CONCLUSION: Abnormal soft tissue swelling second digit with oblique distal phalanx fracture and cortical irregularity head of the second middle phalanx suggesting osteomyelitis. Sean Mcgee MD PE at Discharge GENERAL: in no apparent distress but uncomfortable with the pain CARDIOVASCULAR: Regular rate and regular rhythm without murmurs, gallops, or rubs. RESPIRATORY: Clear to auscultation. Breath sounds equal bilaterally. No wheezes , rales, or rhonchi. GASTROINTESTINAL: Abdomen soft, non-tender, nondistended. Normal, active bowel sounds MUSCULOSKELETAL:lower extremities without clubbing, cyanosis, or edema- right index finger significantly swollen and tender NEURO: Alert & Oriented x4 to person, place, time, situation. Moves all ext x4 skin; erythema over the right index finger psych; somewhat anxious about the surgery Hospital Course Right index finger osteomyelitis: Failed outpatient therapy with Bactrim. Finger x-ray shows second digit soft tissue swelling with oblique distal phalanx fracture and findings suggesting osteomyelitis. MRI of the right hand with osteomyelitis of the second finger s/p I&D right index finger, partial amputation right index finger at level of PIP joint with closure of amputation and packing in palm blood cultures negative and wound culture with MRSA -Continue IV antibiotics with vancomycin . -ID follow-up appreciated; recommended po bactrim and Doxycycline for ten days. -continue with pain control. IV drug abuse: Cessation counseling. Pt Condition on Discharge: Good Discharge Disposition: Discharge Home Discharge Time: <= 30 minutes Discharge Instructions DIET: Follow Instructions for: As Tolerated, No Restrictions Activities you can perform: Regular-No Restrictions Follow up Referrals: Hand Surgery PCP Follow-up New Medications: Doxycycline Hyclate (Doxycycline Hyclate) 100 Mg Cap 100 MG PO BID Infection Days 10 Ref 0 CAP Hydrocodone-Acetaminophen ([place]) 5-325 mg Tab 1 TAB PO Q6H PRN PAIN #12 Ref 0 TAB Sulfamethoxazole-Trimethoprim (Bactrim DS) 800-160 Mg Tab 1 TAB PO BID Infection Days 10 Ref 0 TAB Discontinued Medications: Sulfamethoxazole-Trimethoprim (Bactrim DS) 800-160 Mg Tab 1 TAB PO BID Infection #20 Ref 0 TAB Arnoldo Easton MD Dec 18, 2016 08:58
[2016-12-18] MEDS: NICOTINE 14 MG/24 HR PATCH T-DERMAL SCH (09:01)
[2016-12-18] MEDS ORDERED: PHARMACY ORDERED LAB ONE (11:45)
== END 2016-12-18 11:43 | disposition home or self-care (01) | DRG 514 ==
LOC: NEPE 12:31 → NEDA 17:01 → N07B 19:18
PROVIDERS: ADMIT Internal Medicine; ATTEND Internal Medicine
PROC: 0JDJ0ZZ Extraction of Right Hand Subcutaneous Tissue and Fascia, Open Approach (ICD-10-PCS; 2016-12-15)
PROC: 0X6N0Z1 Detachment at Right Index Finger, High, Open Approach (ICD-10-PCS; principal; 2016-12-15 20:13)
DX: M86.641 Other chronic osteomyelitis, right hand (principal); F11.10 Opioid abuse, uncomplicated; B95.62 Methicillin resistant Staphylococcus aureus infection as the cause of diseases classified elsewhere; F17.210 Nicotine dependence, cigarettes, uncomplicated; Z86.14 Personal history of Methicillin resistant Staphylococcus aureus infection; Z88.1 Allergy status to other antibiotic agents; Z88.8 Allergy status to other drugs, medicaments and biological substances
CPT/HCPCS: 71010; 73120; 73140; 73220; 76937; 80053; 81001; 83605; 84703; 85025; 85610; 85652; 85730; 86140; 86403; 87015; 87040; 87070; 87102; 87116; 87147; 87186; 87205; 87206; 88305; 93005; 96365; A9579; J1170; J1885; J2250; J2270; J2370; J2405; J2543; J3010; J3370; J7030; J7050

== ENCOUNTER 2017-09-25 17:44 | Emergency (ER) | payer OTHER ==
[~2017-09-25] VITALS: Ht 157.5 cm; Wt 60.0 kg
[~2017-09-25 17:44] MED LIST changes: +DOXY100C PO; +NORC5TAB PO
[2017-09-25 17:49] VITALS: BP 115/57; PULSE 102; RESP 18; TEMP 98; O2SAT 98
== END 2017-09-25 18:22 | disposition left against medical advice (07) ==
LOC: NED 17:44
DX: Z03.89 Encounter for observation for other suspected diseases and conditions ruled out (principal)
CPT/HCPCS: 99281

== ENCOUNTER 2017-09-26 19:02 | Emergency (ER) | payer OTHER ==
[~2017-09-26] VITALS: Ht 154.9 cm; Wt 59.1 kg
[2017-09-26 19:35] VITALS: BP 151/69; PULSE 101; RESP 20; TEMP 98.6; O2SAT 100
--- NOTE | 2017-09-26 21:45 | PD ---
Physical Exam Date Seen by Provider: Sep 26, 2017 Time Seen by Provider: 21:35 Narrative 27-year-old female presents to the emergency department requesting a viability test. She states she is trying to get [facility] for detox of opiates. She states she is approximately 7 months . She has not yet been to an OB appointment. She denies any abdominal pain, vaginal bleeding , leakage of fluid. No pain at all. Mild severity. Data Data Last Documented VS Vital Signs Date Time Temp Pulse Resp B/P (MAP) Pulse Ox O2 Delivery O2 Flow Rate FiO2 09/26/17 19:35 98.6 101 20 151/69 (96) 100 MDM Supervised Visit with MAYKEL: No Narrative Course 27-year-old female presents to the emergency department for viability test. She states she is trying to get [place] for detox of [place]iates. She states she is 7 months . Patient is initially seen in triage. Patient did leave AGAINST MEDICAL ADVICE before she can be moved to medical bed. Diagnosis Primary Impression: Left against medical advice Disposition: 07 AGAINST MEDICAL ADVICE Kelsie Perry Sep 26, 2017 21:45
== END 2017-09-27 01:08 | disposition left against medical advice (07) ==
LOC: NED 19:02
DX: O99.320 Drug use complicating pregnancy, unspecified trimester (principal); F11.90 Opioid use, unspecified, uncomplicated; Z3A.00 Weeks of gestation of pregnancy not specified
CPT/HCPCS: 99281

== ENCOUNTER 2017-10-07 06:52 | Inpatient (IN) | payer OTHER ==
[~2017-10-07] VITALS: Ht 154.9 cm; Wt 54.0 kg
[2017-10-07] VITALS (17 sets, daily range): BP systolic 96–126; BP diastolic 48–71; PULSE 56–93; RESP 16–22; TEMP 97.7–99.1; O2SAT 96
--- NOTE | 2017-10-07 07:36 | PD ---
HPI Chief Complaint: Related Problem Time Seen by Provider: 07:18 Travel History International Travel<30 days: No Contact w/Intl Traveler<30days: No Traveled to known affect area: No History of Present Illness HPI 27yo F with PMH of IVDA on heroin here with c/o abdominal pain for a few days. Pt said last heroin use is 2 days ago. Denies any fever, chest pain, sob, focal weakness or numbness. Pt is hungry and requesting food. Currently denies any nausea, vomiting or diarrhea. Had vaginal bleeding 4 days ago. LMP was January 2007. Pt has no care. PFSH Past Medical History Blood Disorders: No Heart Rhythm Problems: No Cancer: No Cardiovascular Problems: Yes (ENDOCARDITIS) High Cholesterol: No Chest Pain: No Congestive Heart Failure: No Diminished Hearing: No Endocrine: No Genitourinary: No Immune Disorder: No Musculoskeletal: No Neurologic: No Psychiatric: No Reproductive: No Respiratory: No Integumentary: Yes (CELLULITIS FROM IV DRUG USE) Immunizations Current: Yes ?: LMP: 02/06 : 3 Para: 2 Miscarriage: 0 : 0 Past Surgical History Abdominal Surgery: No Cardiac Surgery: No Ear Surgery: No Endocrine Surgery: No Eye Surgery: No Genitourinary Surgery: No Gynecologic Surgery: No Oral Surgery: No Pacemaker: No Thoracic Surgery: No Other Surgery: Yes (I&D BILATERAL WRIST ABSCESSES) Social History Alcohol Use: No Tobacco Use: Yes (1/2 ppd) Substance Use: Yes (dilaudid anf heronine) Allergies-Medications (Allergen,Severity, Reaction): Coded Allergies: promethazine (Unverified Allergy, Severe, HALLUCINATIONS, N&V, 02/01/17) sulfamethoxazole (Unverified Allergy, Severe, HALLUCINATIONS, N&V, 02/01/17 ) trimethoprim (Unverified Allergy, Severe, HALLUCINATIONS, N&V, 02/01/17) ciprofloxacin (Unverified Allergy, Intermediate, REDDENED ITCHY RASH, 02/01) *MDRO Multi-Drug Resistant Organism (Verified Adverse Reaction, Unknown, MRSA, 12/20/16) MRSA (fluid) - 08/2014 MRSA (foot)-10/15/16 MRSA (finger) - 12/14/16 MRSA Hand 12/15/16 Reported Meds & Prescriptions Reported Meds & Active Scripts Active Cephalexin 500 Mg Cap 500 Mg PO Q12H 7 Days [place] (Hydrocodone-Acetaminophen) 5-325 mg Tab 1 Tab PO Q6H PRN Doxycycline Hyclate 100 Mg Cap 100 Mg PO BID 10 Days Bactrim DS (Sulfamethoxazole-Trimethoprim) 800-160 Mg Tab 1 Tab PO BID 10 Days Review of Systems Except as stated in HPI: all other systems reviewed are Neg Physical Exam Narrative GENERAL: 27yo F not in distress. SKIN: Multiple skin lesions. +2 abscess in left arm. HEAD: Atraumatic. Normocephalic. EYES: Pupils equal and round. No scleral icterus. No injection or drainage. ENT: No nasal bleeding or discharge. Mucous membranes pink and moist. NECK: Trachea midline. No JVD. CARDIOVASCULAR: Regular rate and rhythm. No murmur appreciated. RESPIRATORY: No accessory muscle use. Clear to auscultation. Breath sounds equal bilaterally. GASTROINTESTINAL: Abdomen soft, gravid. Mild tenderness lower abdomen. + Erythema with ttp left upper abdomen with scabbing. No rebound tenderness or guarding. PELVIC: Deferred for OB. MUSCULOSKELETAL: No obvious deformities. No clubbing. No cyanosis. No edema. NEUROLOGICAL: Awake and alert. No obvious cranial nerve deficits. Motor grossly within normal limits. Normal speech. PSYCHIATRIC: Appropriate mood and affect; insight and judgment normal. Data Data Last Documented VS Vital Signs Date Time Temp Pulse Resp B/P (MAP) Pulse Ox O2 Delivery O2 Flow Rate FiO2 10/07/17 07:02 98.4 82 18 114/64 (81) 96 Orders Orders Ed Discharge Order (10/07/17 07:57) Equip, Isolation Cart (10/07/17 08:36) Vital Signs (Adult) .ON ADMISSION (10/07/17 08:56) ^ Labor Status (10/07/17 08:56) Urinalysis - C+S If Indicated (10/07/17 08:56) ^ Hydration (10/07/17 08:56) Comprehensive Metabolic Panel (10/07/17 08:56) Ob/Psych Drug Screen, Urine (10/07/17 08:56) Rubella Immune Status (10/07/17 08:56) Hepatitis Profile (10/07/17 08:56) Rapid Plasma Regin (Rpr) W Ttr (10/07/17 08:56) Type And Screen (10/07/17 08:56) Complete Blood Count With Diff (10/07/17 08:56) Special Serology (10/07/17 08:56) Clonidine (Catapres) (10/07/17 09:00) Lorazepam (Ativan) (10/07/17 09:00) Lorazepam (Ativan) (10/07/17 09:15) Place In Observation (10/07/17 ) Vital Signs (Adult) [id number] AWAKE (10/07/17 09:07) ^ Monitor (10/07/17 09:07) Activity Bed Rest With Brp (10/07/17 09:07) Sodium Chloride 0.9% Flush (Ns Flush) (10/07/17 21:00) Sodium Chloride 0.9% Flush (Ns Flush) (10/07/17 09:15) Ondansetron Inj (Zofran Inj) (10/07/17 09:15) Us Ob Pelvis >14 Wks Fetus (10/07/17 ) Mrsa Screen (10/07/17 09:07) Isolation (10/07/17 09:13) Consult Infectious Disease (10/07/17 ) Ob (2e) Additional Admit Info (10/07/17 09:14) Case Management Consult (10/07/17 ) Direct Bilirubin (10/07/17 14:50) MDM Medical Decision Making Medical Screen Exam Complete: Yes Emergency Medical Condition: Yes Differential Diagnosis Abdominal pain and vaginal bleeding in third trimester vs. IVDA Narrative Course 27yo who is about 37weeks with LMP of January 2017 here with c/o abdominal pain and vaginal bleeding 4 days ago. Pt has no care. Pt is an active IVDA and last heroin use is 2 days ago. Pt does have left arm abscesses but is refusing I&D right now. Vital signs are stable. Discussed with OB hospitalist Dr. Alex and feel that pt should be evaluated by OB ED since she is 37 weeks . Base on vital signs, pt is not septic and not toxic appearing. Blood work initially ordered but cancelled after 1 attempt and since pt is going to OB ED, feel that abdominal pain and vaginal bleeding is related to her so will defer to OB management. Pt given crackers as requested. Will cover pt with antibiotics for here skin abscesses. Pt transfer to OB ED in stable conditions. Diagnosis Primary Impression: Skin abscess Qualified Codes: L02.414 - Cutaneous abscess of left upper limb Additional Impression: Abdominal pain affecting Patient Instructions: General Instructions Departure Forms: Tests/Procedures Additional Instructions: Pt is being transferred to OB ED in stable conditions since she has obstetric related complaints and is currently in her third trimester. Return precautions given. Med/Other Pt SpecificInfo: Prescription(s) given Scripts Cephalexin (Cephalexin) 500 Mg Cap 500 MG PO Q12H for Infection for 7 Days, #14 CAP 0 Refills Prov: Juliann Richey DO 10/07/17 Disposition: 01 DISCHARGE HOME Condition: Stable Juliann Richye DO Oct 07, 2017 07:36
[2017-10-07] MEDS ORDERED: CEPH500C PO (07:57)
[2017-10-07] MEDS ORDERED: LORazepam 1 MG TAB PO ONE ×2 (09:00→09:30)
[2017-10-07] MEDS ORDERED: LORazepam 1 MG TAB PO PRN (09:15)
[2017-10-07] MEDS: cloNIDine HCL 0.1 MG TAB PO PRN (09:15)
[2017-10-07] MEDS ORDERED: SODIUM CHLORIDE 0.9% FLUSH 10 ML FLUSH IV FLUSH PRN (09:15)
[2017-10-07] MEDS ORDERED: ONDANSETRON HCL 4 MG/2 ML VIAL IV PUSH PRN (09:15)
[2017-10-07] MEDS ORDERED: diphenhydrAMINE HCL 50 MG CAP PO ONE (09:30)
[2017-10-07] MEDS: BUPRENORPHINE HCL 8 MG SUBLINGUAL TAB SL SCH ×7 (10:50→23:00)
[2017-10-07 10:55] LABS: BACTERIA, URINE RARE /hpf; BILIRUBIN, URINE NEG (NEG); BLOOD, URINE NEG (NEG); GLUCOSE,URINE 70 mg/dL (NEG); KETONE, URINE NEG (NEG); MUCUS URINE FEW /lpf (OCC); NITRITE,URINE NEG (NEG); SQUAMOUS EPITHELIAL CELL URINE 5 /hpf (0-5); TRICHOMONAS, URINE RARE; URINE COLOR YELLOW (YELLW/STRAW); URINE LEUKOCYTE ESTERASE NEG (NEG)
--- NOTE | 2017-10-07 11:18 | RADRPT ---
EXAM DATE/TIME: 10/07/2017 10:53 [facility] COMPARISON: CHEST SINGLE AP, December 14, 2016, 15:44. INDICATIONS : Cough. MEDICAL HISTORY : Cellulitis. MRSA. SURGICAL HISTORY : None. ENCOUNTER: Initial ACUITY: 1 day PAIN SCORE: Non-responsive. LOCATION: Bilateral chest FINDINGS: A single view of the chest demonstrates the lungs to be symmetrically aerated without evidence of mas s, infiltrate or effusion. The cardiomediastinal contours are unremarkable. Osseous structures are intact. CONCLUSION: No acute disease. Tushar Gaona MD on October 07, 2017 at 11:16 Board Certified Radiologist. This report was verified electronically.
[2017-10-07] MEDS: BETAMETHASONE SOD PHOS/ACETATE SUSP 30 MG/5 ML VIAL IM SCH (11:39)
[2017-10-07] MEDS ORDERED: BUPRENORPHINE HCL 8 MG SUBLINGUAL TAB SL SCH (12:00)
[2017-10-07] MEDS ORDERED: LORazepam 2 MG TAB PO ONE (12:00)
--- NOTE | 2017-10-07 12:06 | PD.ID.CON ---
History of Present Illness Service ID Consult Requested By //Melvi Reason for Consult Evaluation and Mment of MRSA skin abscesses rule out endocarditis in a 30 week female. Primary Care Physician No Primary Care Physician Diagnoses: History of Present Illness Most of the history was by review of medical records. Patient not cooperative. is a 27 y/o CF with PMHx of IVDA, cellulitis, possible abscess/ gangrene and amputation of right index finger.Patient was admitted with complains of abdominal pain. She reports last heroin use 2 days prior to admission. Reports having vaginal bleeding but no vaginal foul smelling discharge so far. She thinks her baby is moving well but has been refusing monitoring during her hospital stay. Patient was noted to have a murmur and several skin abscesses and due to her history of MRSA infections, IVDA and Endocarditis ID was consulted for eval and mment of MRSA skin abscesses multiple from skin popping and to rule out endocarditis. Patient has had no care prior to arrival. Denies any fever, chest pain, sob, focal weakness or numbness. Currently denies any nausea, vomiting or diarrhea. Had vaginal bleeding 4 days ago. LMP was January 2007. Pt has no care. Denies any headache, neck pain or vision changes. Denies any focal deficits. Review of Systems ROS Limitations: Poor Historian Constitutional: COMPLAINS OF: Diaphoretic episodes, DENIES: Fatigue, Fever, Weight gain, Weight loss, Chills, Dizziness, Change in appetite, Night Sweats Endocrine: COMPLAINS OF: Abnorml menstrual pattern, DENIES: Heat/cold intolerance, Polydipsia, Polyuria, Polyphagia Eyes: DENIES: Blurred vision, Diplopia, Eye inflammation, Eye pain, Vision loss , Photosensitivity, Double Vision Ears, nose, mouth, throat: DENIES: Tinnitus, Hearing loss, Vertigo, Nasal discharge, Oral lesions, Throat pain, Hoarseness, Ear Pain, Running Nose, Epistaxis, Sinus Pain, Toothache, Odynophagia Respiratory: DENIES: Apneas, Cough, Snoring, Wheezing, Hemoptysis, Sputum production, Shortness of breath Cardiovascular: DENIES: Chest pain, Palpitations, Syncope, Dyspnea on Exertion , PND, Lower Extremity Edema, Orthopnea, Claudication Gastrointestinal: DENIES: Abdominal pain, Black stools, Bloody stools, Constipation, Diarrhea, Nausea, Vomiting, Difficulty Swallowing, Anorexia Genitourinary: DENIES: Abnormal vaginal bleeding, Dysmenorrhea, Dyspareunia, Sexual dysfunction, Urinary frequency, Urinary incontinence, Urgency, Hematuria , Dysuria, Nocturia, Vaginal discharge Musculoskeletal: DENIES: Joint pain, Muscle aches, Stiffness, Joint Swelling, Back pain, Neck pain Integumentary: DENIES: Abnormal pigmentation, Pruritus, Rash, Nail changes, Breast masses, Breast skin changes, Nipple discharge Hematologic/lymphatic: DENIES: Bruising, Lymphadenopathy Immunologic/allergic: DENIES: Eczema, Urticaria Neurologic: DENIES: Abnormal gait, Headache, Localized weakness, Paresthesias, Seizures, Speech Problems, Tremor, Poor Balance Psychiatric: DENIES: Anxiety, Confusion, Mood changes, Depression, Hallucinations, Agitation, Suicidal Ideation, Homicidal Ideation, Delusions Except as stated in HPI: all other systems reviewed are Neg Past Family Social History Allergies: Coded Allergies: promethazine (Unverified Allergy, Severe, HALLUCINATIONS, N&V, 02/01/17) sulfamethoxazole (Unverified Allergy, Severe, HALLUCINATIONS, N&V, 02/01/17 ) trimethoprim (Unverified Allergy, Severe, HALLUCINATIONS, N&V, 02/01/17) ciprofloxacin (Unverified Allergy, Intermediate, REDDENED ITCHY RASH, 02/01) *MDRO Multi-Drug Resistant Organism (Verified Adverse Reaction, Unknown, MRSA, 12/20/16) MRSA (fluid) - 08/2014 MRSA (foot)-10/15/16 MRSA (finger) - 12/14/16 MRSA Hand 12/15/16 Past Medical History MRSA skin abscesses bilateral wrists. 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 Reported Medications Reported Meds & Active Scripts Active Cephalexin 500 Mg Cap 500 Mg PO Q12H 7 Days [place] (Hydrocodone-Acetaminophen) 5-325 mg Tab 1 Tab PO Q6H PRN Doxycycline Hyclate 100 Mg Cap 100 Mg PO BID 10 Days Bactrim DS (Sulfamethoxazole-Trimethoprim) 800-160 Mg Tab 1 Tab PO BID 10 Days Active Ordered Medications Current Medications Medications (Trade) Dose Ordered Sig/Deborah Route Start Time Stop Time Status Last Admin (Catapres) 0.1 mg Q6H PRN PO 10/07/17 09:00 10/07/17 09:15 (NS Flush) 2 ml BID IV FLUSH 10/07/17 21:00 (NS Flush) 2 ml UNSCH PRN IV FLUSH 10/07/17 09:15 (Zofran Inj) 4 mg Q6H PRN IV PUSH 10/07/17 09:15 (Ativan) 1 mg Q2H PRN PO 10/07/17 09:30 (Buprenorphine) 4 mg Q2H SL 10/07/17 11:00 10/07/17 10:50 (Celestone Soluspan Inj) 12 mg Q24H IM 10/07/17 12:00 10/08/17 12:01 10/07/17 11:39 Family History could not be obtained. Social History has 3 kids. Boyfriend in room. Smokes 1/2 ppd. IVDA heroin, ativan and other drugs. Physical Exam Vital Signs Vital Signs Date Time Temp Pulse Resp B/P (MAP) Pulse Ox O2 Delivery O2 Flow Rate FiO2 10/07/17 10:44 97.8 93 22 126/71 (89) 10/07/17 07:02 98.4 82 18 114/64 (81) 96 Physical Exam GENERAL: This is a well-nourished, well-developed patient, in no apparent distress. SKIN: Multiple skin lesions. Left arm dorsum 2 large abscesses with induration redness. On RLE inner aspect of knee there is another large abscess. Gravid Uterus with left upper quadrant cellulitis possible abscess. HEAD: Atraumatic. Normocephalic. No temporal or scalp tenderness. EYES: Pupils equal round and reactive. Extraocular motions intact. No scleral icterus. No injection or drainage. ENT: Nose without bleeding, purulent drainage or septal hematoma. NECK: Trachea midline. Supple, nontender, no meningeal signs. CARDIOVASCULAR: Systolic murmur. RESPIRATORY: Clear to auscultation. Breath sounds equal bilaterally. No wheezes , rales, or rhonchi. GASTROINTESTINAL: Abdomen soft, non-tender, nondistended. MUSCULOSKELETAL: Extremities without clubbing, cyanosis, or edema. No joint tenderness, effusion, or edema noted. No calf tenderness. Negative Homans sign bilaterally. NEUROLOGICAL: Awake and alert. Non focal on gross exam. Psych agitated, non cooperative at times. Laboratory Laboratory Tests Test 10/07/17 09:55 Urine Color YELLOW Urine Turbidity HAZY Urine pH 8.0 Urine Specific [place] 1.024 Urine Protein TRACE Urine Glucose (UA) 70 Urine Ketones NEG Urine Occult Blood NEG Urine Nitrite NEG Urine Bilirubin NEG Urine Urobilinogen 2.0 Urine Leukocyte Esterase NEG Urine RBC 9 Urine WBC 39 Urine Squamous Epithelial Cells 5 Urine Bacteria RARE Urine Mucus FEW Urine Trichomonas RARE Microscopic Urinalysis Comment CULTURE INDICATED Urine Opiates Screen POS Urine Barbiturates Screen NEG Urine Amphetamines Screen NEG Urine Benzodiazepines Screen NEG Urine Cocaine Screen POS Urine Cannabinoids Screen NEG Date/Time Source Procedure Growth Status 10/07/17 11:00 Nasopharyngeal MRSA Surveillance Culture Pending Received 10/07/17 09:55 Urine Clean Catch Urine Culture Pending Received Imaging Last Impressions Chest X-Ray 10/07/17 0000 Signed Impressions: Service Date/Time: Saturday, October 07, 2017 10:53 - CONCLUSION: No acute disease. Tushar Gaona MD Assessment and Plan Assessment and Plan Rule out endocarditis. H/o IVDA MRSA skin abscesses in past. 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 Drug withdrawal: on Suboxone now. Recs: Blood cultures x 2 stat Start Cefepime IV (for PSAE or Gram neg infection pending cultures) Start Daptomycin IV( 30 weeks cannot use Vanco, Zyvox or Teflaro for MRSA coverage) Follow 2D ECHO. Consider Doppler UE if high grade bacteremia to r/o septic thrombophlebitis. Vascular access consult. If difficult access ok to consider Central line but no PICC line till cleared by ID Surgery consult for drainage of abscesses from skin popping. Difficult patient refusing monitoring of baby, refusing other care. Dr. Valderrama covering for me this weekend. Danay Price MD Oct 07, 2017 12:06
--- NOTE | 2017-10-07 12:25 | PD ---
HPI Chief Complaint skin abscesses Date Seen: Oct 07, 2017 Time Seen: 11:30 Travel History International Travel<30 Days: No Contact w/Intl Traveler<30Days: No Known Affected Area: No History of Present Illness HPI Ms Reyes is a 27YO at 30/3 weeks (based on BPD, HC, [place], [place]) who presents with multiple skin abscesses and in withdrawal from polysubstances. Pt has PMHx IVDU, polysubstance abuse and MRSA. Pt has no PNC. Pt is a poor historian as she is actively withdrawing and threatening to leave AMA. Pt is intoxicated. Denies LOF or VB, states she has 10/10 pain. 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 MRSA Medical History: Unable to Obtain Past Surgical History Narrative Surgical Amputation of right index finger Multiple I&Ds of skin and soft tissue abscesses Right heel surgery Surgical History: Unable to Obtain Family History Narrative Family History unable to obtain Social History Narrative Social History unable to obtain Alcohol Use: No Tobacco Use: Yes (1/2PPD per previous hospital records) Substance Abuse: Yes (IVDU with heroin, cocaine, dilaudid) Allergies-Medications (Allergen,Severity, Reaction): Coded Allergies: promethazine (Unverified Allergy, Severe, HALLUCINATIONS, N&V, 02/01/17) sulfamethoxazole (Unverified Allergy, Severe, HALLUCINATIONS, N&V, 02/01/17 ) trimethoprim (Unverified Allergy, Severe, HALLUCINATIONS, N&V, 02/01/17) ciprofloxacin (Unverified Allergy, Intermediate, REDDENED ITCHY RASH, 02/01) *MDRO Multi-Drug Resistant Organism (Verified Adverse Reaction, Unknown, MRSA, 12/20/16) MRSA (fluid) - 08/2014 MRSA (foot)-10/15/16 MRSA (finger) - 12/14/16 MRSA Hand 12/15/16 Home Meds Active Scripts Cephalexin (Cephalexin) 500 Mg Cap, 500 MG PO Q12H for Infection for 7 Days, # 14 CAP 0 Refills Prov:Juliann Richey DO 10/07/17 Hydrocodone-Acetaminophen ([place]) 5-325 mg Tab, 1 TAB PO Q6H Y for PAIN, #12 TAB 0 Refills Prov:Arnoldo Easton MD 12/18/16 Doxycycline Hyclate (Doxycycline Hyclate) 100 Mg Cap, 100 MG PO BID for Infection for 10 Days, CAP 0 Refills Prov:Arnoldo Easton MD 12/18/16 Sulfamethoxazole-Trimethoprim (Bactrim DS) 800-160 Mg Tab, 1 TAB PO BID for Infection for 10 Days, TAB 0 Refills Prov:Arnoldo Easton MD 12/18/16 Review of Systems ROS Limitations: Intoxication, Uncooperative Physical Exam Vital Signs Date Time Temp Pulse Resp B/P (MAP) Pulse Ox O2 Delivery O2 Flow Rate FiO2 10/07/17 10:44 97.8 93 22 126/71 (89) 10/07/17 07:02 98.4 82 18 114/64 (81) 96 Narrative GENERAL: Well-nourished, well-developed patient who is intoxicated and withdrawing from opioids. SKIN: Warm and dry. Multiple lesions on arms and legs bilaterally with skin abscesses. HEAD: Normocephalic and atraumatic. EYES: No scleral icterus. No injection or drainage. EOMI. ENT: No nasal drainage noted. Mucous membranes pink. Airway patent. NECK: Supple, trachea midline. No JVD. CARDIOVASCULAR: Regular rate and rhythm with systolic murmur; no gallop or rub. RESPIRATORY: Breath sounds equal bilaterally. No accessory muscle use. ABDOMEN/GI: Abdomen soft, non-tender. Gravid to [-] weeks size Fundal Height: [-] GENITOURINARY: deferred/pt refused External Genitalia: - Cervix: [-] Dilatation: [-] Effacement: [-] Station: [-] Presentation: [-] Membranes: [intact or ruptured] Uterine Contractions: [-] FHT's: pt refused Category: [-] Baseline: [-] Reactive: [-] Variability: [-] Decels: [-] EXTREMITIES: No cyanosis or edema. BACK: Nontender without obvious deformity. No CVA tenderness. NEUROLOGICAL: Awake and alert. Motor and sensory grossly within normal limits. Five out of 5 muscle strength in all muscle groups. Normal speech. Data Data Vital Signs Reviewed: Yes Orders Orders Ed Discharge Order (10/07/17 07:57) Equip, Isolation Cart (10/07/17 08:36) Vital Signs (Adult) .ON ADMISSION (10/07/17 08:56) ^ Labor Status (10/07/17 08:56) Urinalysis - C+S If Indicated (10/07/17 08:56) ^ Hydration (10/07/17 08:56) Cbc No Diff, Includes Plts (10/07/17 08:56) Comprehensive Metabolic Panel (10/07/17 08:56) Ob/Psych Drug Screen, Urine (10/07/17 08:56) Rubella Immune Status (10/07/17 08:56) Hepatitis Profile (10/07/17 08:56) Rapid Plasma Regin (Rpr) W Ttr (10/07/17 08:56) Type And Screen (10/07/17 08:56) Complete Blood Count With Diff (10/07/17 08:56) Special Serology (10/07/17 08:56) Clonidine (Catapres) (10/07/17 09:00) Lorazepam (Ativan) (10/07/17 09:00) Lorazepam (Ativan) (10/07/17 09:15) Place In Observation (10/07/17 ) Vital Signs (Adult) [id number] AWAKE (10/07/17 09:07) ^ Monitor (10/07/17 09:07) Activity Bed Rest With Brp (10/07/17 09:07) Basic Metabolic Panel (Bmp) (10/07/17 09:07) Hepatic Functional Panel (10/07/17 09:07) Sodium Chloride 0.9% Flush (Ns Flush) (10/07/17 21:00) Sodium Chloride 0.9% Flush (Ns Flush) (10/07/17 09:15) Ondansetron Inj (Zofran Inj) (10/07/17 09:15) Us Ob Pelvis >14 Wks Fetus (10/07/17 ) Mrsa Screen (10/07/17 09:07) Isolation 08,20 (10/07/17 09:13) Consult Infectious Disease (10/07/17 ) Ob (2e) Additional Admit Info (10/07/17 09:14) Case Management Consult (10/07/17 ) Admit To Inpatient (10/07/17 ) Inpatient Certification (10/07/17 ) Lorazepam (Ativan) (10/07/17 09:30) Lorazepam (Ativan) (10/07/17 09:30) Diphenhydramine (Benadryl) (10/07/17 09:30) (Hub Use Only)Inp Phy Cons/Ref (10/07/17 ) Vascular Access Team Consult/P PRN (10/07/17 09:57) Vascular Poc Ultrasound (10/07/17 ) Consult Obstetrics (10/07/17 ) Buprenorphine (Buprenorphine) (10/07/17 12:00) Heart (10/07/17 10:37) ^ Non Stress Test (10/07/17 10:37) Chest, Single Ap (10/07/17 ) Buprenorphine (Buprenorphine) (10/07/17 11:00) Lorazepam (Ativan) (10/07/17 12:00) Betamethasone Inj (Celestone Soluspan In (10/07/17 12:00) Urine Culture (10/07/17 09:55) Echo 2d Comp With Doppler (10/07/17 11:07) Gc And Chlamydia Pcr (10/07/17 11:07) (Hub Use Only)Inp Phy Cons/Ref (10/07/17 ) Consult General Surgery (10/07/17 ) (Hub Use Only)Inp Phy Cons/Ref (10/07/17 ) Labs Laboratory Tests Test 10/07/17 09:55 Urine Color YELLOW Urine Turbidity HAZY Urine pH 8.0 Urine Specific [place] 1.024 Urine Protein TRACE Urine Glucose (UA) 70 Urine Ketones NEG Urine Occult Blood NEG Urine Nitrite NEG Urine Bilirubin NEG Urine Urobilinogen 2.0 Urine Leukocyte Esterase NEG Urine RBC 9 Urine WBC 39 Urine Squamous Epithelial Cells 5 Urine Bacteria RARE Urine Mucus FEW Urine Trichomonas RARE Microscopic Urinalysis Comment CULTURE INDICATED Urine Opiates Screen POS Urine Barbiturates Screen NEG Urine Amphetamines Screen NEG Urine Benzodiazepines Screen NEG Urine Cocaine Screen POS Urine Cannabinoids Screen NEG Date/Time Source Procedure Growth Status 10/07/17 11:00 Nasopharyngeal MRSA Surveillance Culture Pending Received 10/07/17 09:55 Urine Clean Catch Urine Culture Pending Received MDM Medical Record Reviewed: Yes Narrative Course / MDM 27YO at 30/4 weeks with no PNC and PMHx IVDU, MRSA, and polysubstance abuse , p/w multiple skin abscesses, in pain, intoxicated, and withdrawing from heroin and possible other illicit substances. Pt a poor historian due to clinical condition. 1. IUP -Monitor and toco - pt refused -Cervical exam - pt refused -OB US showing pt at 30/3 weeks, normal amniotic fluid, 3 vessel umbilical cord and posterior grade 1 placenta without previa -UA requiring cx which is pending - labs pending -CM consult -Betamethasone 12mg IM q24h x2 doses (1 of 2 given) -Zofran 4mg IV q6h PRN 2. Cellulitis/multiple skin abscesses w/PMHx MRSA -CXR wnl -ECHO pending -ID consult--appreciate recs --Blood cx x2 --Vascular access (as per ID recs) --Cefepime 2g IV q8h --Daptomycin 480mg IV q24h -Gen surgery consult--appreciate recs -Labs -MRSA nasal swab pending -UDS+ cocaine and opiates -GC and Chlamydia pending -MRSA precautions 3. Opioid dependence w/withdrawal -OB Consult--following Dr Marshall initial recs for opioid withdrawal -Buprenorphine 4mg SL q2h -Clonidine 0.1mg PO q6h PRN agitation -Benadryl 50mg PO PRN -Ativan 1mg PO q2h PRN agitation -UDS positive cocaine and opioids 4. FEN/GI/PPx -Fluid: PO fluids -Electrolytes: CMP pending, will monitor and replete as necessary -Nutrition: regular diet -GI: none indicated -PPx: none indicated Pt seen and dw Naman Crow and Abner Colin Diagnosis Diagnosis: Primary Impression: Skin abscess Qualified Codes: L02.414 - Cutaneous abscess of left upper limb Additional Impression: Abdominal pain affecting Disposition: DISCHARGE HOME Condition: Stable Scripts Cephalexin (Cephalexin) 500 Mg Cap 500 MG PO Q12H for Infection for 7 Days, #14 CAP 0 Refills Prov: RicheyJuliann hay 10/07/17 Patient Instructions: General Instructions Additional Instructions: Pt is being transferred to OB ED in stable conditions since she has obstetric related complaints and is currently in her third trimester. Return precautions given. Departure Forms: Tests/Procedures Forrest Ogden MD R1 Oct 07, 2017 12:24
--- NOTE | 2017-10-07 14:45 | PD ---
History of Present Illness History of Present Illness I assumed care of this pt earlier this morning. She had [facility] [place] from [facility]. Since arrival, pt has received subutex, ativan, and clonidine. She has been given food and drinks. Pt has been thoroughly uncooperative, refusing examinations, consultations, and monitoring of the baby. We were able to obtain a CXR and echo which were both negative. Pt is covered in head to toe skin abscesses and was seen by ID who recommended IV abx with coverage for endocarditis given heart murmur. Pt has been using foul language, yelling at the RNs, and refusing IV access demanding that "I only will take a PICC line". She had a visitor earlier who came in with a backpack but when security arrived , the visitor left. He then returned with the backpack which was held while he visited. Pt's agitation has escalated. She has demanded more food/drinks but refused any intervention. She was asked how we can help her and she stated she wanted to be left alone. I advised that there was nothing I could offer her if she was not willing to let us help. She was given time to settle down. One hour later, I returned with RNs and we advised pt that we wanted to proceed with an NST and IV abx. Pt stated she only wanted food and nothing else. She became irate and yelled at myself and staff. She said she was "getting the fuck out of here". I advised her that she could leave AMA and I left the room (RNs remained) to notify staff of the need for the form. When AMA form was given to pt, she changed her tone. She stated that she did not want to leave. I returned to the pt's room and expressed that I have experience in treating addicts in withdrawal and wanted to help, not upset her. I acknowledged her physical pain and hunger and said I wanted to help address all of it. I expressed my concern that saving her life and her baby's was my # 1 priority. She expressed that she didn't want more and more teams and testing and gen surgery to cut open an abscess. She said "I don't want to leave" again. I told her we would limit any further consults/testing at this time and advised that I merely needed her to start IV abx and allow us to obtain an NST. I would ensure she gets lunch and snacks/drinks as requested. I told her that her life was important and all of us had a similar goal of helping her through this. I said that we would respect how she felt and what she needed, but I requested the same respect be shown to our staff. She apologized for being upset. It was agreed upon by all to move her to her APU room, call the VAT for IV access, and order lunch. Chino Florence MD Oct 07, 2017 14:45
[2017-10-07 15:42] LABS: AUTOMATED NEUTROPHIL # 10.2 TH/MM3 (1.8-7.7); BASOPHIL % 0.1 % (0.0-2.0); EOSINOPHIL % 0.2 % (0.0-4.0); HEMATOCRIT 26.4 % (35.0-46.0); LYMPH % 5.1 % (9.0-44.0); LYMPHOCYTE # 0.6 TH/MM3 (1.0-4.8); MEAN CELL VOLUME 83.9 FL (80.0-100.0); MEAN CORPUSCULAR HEMOGLOBIN 28.6 PG (27.0-34.0); MEAN CORPUSCULAR HGB CONC 34.1 % (32.0-36.0); MEAN PLATELET VOLUME 8.2 FL (7.0-11.0); MONO % 1.2 % (0.0-8.0); MONOCYTE # 0.1 TH/MM3 (0-0.9); NEUT % 93.4 % (16.0-70.0); PLATELET COUNT 176 TH/MM3 (150-450); RED BLOOD COUNT 3.15 MIL/MM3 (4.00-5.30); RED CELL DISTRIBUTION WIDTH 15.2 % (11.6-17.2); WHITE BLOOD COUNT 10.9 TH/MM3 (4.0-11.0)
[2017-10-07 16:01] LABS: ALBUMIN 2.4 GM/DL (3.4-5.0); AST (GOT) 12 U/L (15-37); BICARBONATE 22.9 MEQ/L (21.0-32.0); BLOOD UREA NITROGEN 6 MG/DL (7-18); CALCIUM 8.6 MG/DL (8.5-10.1); CHLORIDE 107 MEQ/L (98-107); DIRECT BILIRUBIN ADULT 0.1 MG/DL (0.0-0.2); GLOMERULAR FILTRATION RATE 146 ML/MIN (>89); GLUCOSE,RANDOM 165 MG/DL (74-106); SODIUM (NA) 138 MEQ/L (136-145)
[2017-10-07 16:03] LABS: ALKALINE PHOSPHATASE 126 U/L (45-117); ALT (GPT) 13 U/L (10-53); TOTAL BILIRUBIN ADULT 0.3 MG/DL (0.2-1.0); TOTAL PROTEIN 7.3 GM/DL (6.4-8.2)
[2017-10-07] MEDS: DAPTOMYCIN IV SCH (16:15)
[2017-10-07] MEDS: SODIUM CHLORIDE 0.9% IV SCH (16:15)
[2017-10-07] MEDS: CEFEPIME INJ 2,000 MG in SODIUM CHLORIDE 0.9% INJ 100 ML IV SCH ×2 (17:26→22:13)
[2017-10-07] MEDS: LORazepam 1 MG TAB PO PRN (20:37)
[2017-10-07] MEDS ORDERED: NICOTINE 21 MG/24 HR PATCH T-DERMAL ONE (21:30)
[2017-10-07] MEDS: SODIUM CHLORIDE 0.9% FLUSH 10 ML FLUSH IV FLUSH SCH (22:14)
[2017-10-08] VITALS (21 sets, daily range): BP systolic 104–117; BP diastolic 55–62; PULSE 71–91; RESP 16–18; TEMP 98–98.3
[2017-10-08] MEDS: BUPRENORPHINE HCL 8 MG SUBLINGUAL TAB SL SCH ×10 (01:00→22:10)
[2017-10-08] MEDS: CEFEPIME INJ 2,000 MG in SODIUM CHLORIDE 0.9% INJ 100 ML IV SCH ×3 (05:27→22:11)
[2017-10-08] MEDS: LORazepam 1 MG TAB PO PRN ×6 (05:31→21:37)
[2017-10-08] MEDS: NICOTINE 21 MG/24 HR PATCH T-DERMAL SCH (09:00)
[2017-10-08] MEDS: SODIUM CHLORIDE 0.9% FLUSH 10 ML FLUSH IV FLUSH SCH ×2 (09:00→22:00)
[2017-10-08] MEDS: BETAMETHASONE SOD PHOS/ACETATE SUSP 30 MG/5 ML VIAL IM SCH (11:58)
--- NOTE | 2017-10-08 15:33 | PD.OB.ANTE ---
Subjective Diagnosis: (1) Narcotic addiction (2) IV drug user (3) Skin abscess Interval History Patient is feeling better today since certainly more calm today, she is having no pain, bleeding, leakage of fluid, baby is active but she says decreased somewhat, her NST is reactive. No contractions are noted She thinks her skin lesions are also getting better, she had questions today about how long should be in the hospital and use of Subutex to help her with the drug withdrawal and management Objective Vital Signs Vital Signs Date Time Temp Pulse Resp B/P (MAP) Pulse Ox O2 Delivery O2 Flow Rate FiO2 10/08/17 11:43 16 10/08/17 11:42 98.3 10/08/17 11:42 76 117/55 (75) 10/08/17 05:44 98.0 18 10/08/17 05:33 78 104/62 (76) 10/07/17 22:25 98.0 10/07/17 22:25 18 10/07/17 22:19 62 96/48 (64) 10/07/17 21:15 60 10/07/17 21:10 60 10/07/17 21:05 59 10/07/17 21:00 59 10/07/17 20:55 58 10/07/17 20:50 56 10/07/17 20:15 97.7 10/07/17 20:15 16 10/07/17 20:05 80 105/48 (67) 10/07/17 17:30 16 10/07/17 16:30 99.1 16 10/07/17 15:30 16 Lab & Micro Results Date/Time Source Procedure Growth Status 10/07/17 14:50 Blood Peripheral Aerobic Blood Culture - Preliminary NO GROWTH IN 1 DAY Resulted 10/07/17 14:50 Blood Peripheral Anaerobic Blood Culture - Preliminary NO GROWTH IN 1 DAY Resulted 10/07/17 11:00 Nasopharyngeal MRSA Surveillance Culture - Preliminary NO MRSA ISOLATED Resulted 10/07/17 09:55 Urine Clean Catch Urine Culture - Final 10-50,000 CFU/ML MIXED GRAM POSITIVE ... Complete Physical Exam GENERAL: Well-nourished, well-developed patient. CARDIOVASCULAR: Regular rate and rhythm without murmurs, gallops, or rubs. RESPIRATORY: Breath sounds equal bilaterally. No accessory muscle use. ABDOMEN/GI: Abdomen soft, non-tender. Fundus: [-] GENITOURINARY: External Genitalia: intact and normal in appearance FHT Category: [-1] Baseline: [133-] Reactive: [R-] Variability: [-mod] Decels: [none-] EXTREMITIES: No cyanosis or edema, non-tender, without signs of DVT. Assessment and Plan Assessment and Plan 30/31 week intrauterine multiparous with known history of IV heroin use who presents and withdrawal and wants help in getting withdrawal off of IV narcotic Patient also has multiple skin abscesses and cellulitis areas worst being in her left arm but they are smaller ones all over her body, she is on IV antibiotics and infectious disease is seen the patient as well as general surgery Dr. Sheriff is involved in the patient's care but has yet to see her ,she has been giving orders for Suboxone usage and plans to see the patient on Tuesday morning it is now Tuesday All of the above was discussed with the patient today and she understands her need to stay in the hospital to achieve withdrawal therapy as well as set up an outpatient support system and drug management program Trevin Edmonds II, MD Oct 08, 2017 15:33
[2017-10-08] MEDS: SODIUM CHLORIDE 0.9% IV SCH (16:15)
[2017-10-08] MEDS: DAPTOMYCIN IV SCH (16:15)
--- NOTE | 2017-10-08 16:24 | HHI.IDPN ---
Subjective Subjective Remarks ID COVERAGE is a 27 y/o CF with PMHx of IVDA, cellulitis, possible abscess/ gangrene and amputation of right index finger.Patient was admitted with complains of abdominal pain. She reports last heroin use 2 days prior to admission. Reports having vaginal bleeding but no vaginal foul smelling discharge so far. She thinks her baby is moving well but has been refusing monitoring during her hospital stay. Patient was noted to have a murmur and several skin abscesses and due to her history of MRSA infections, IVDA and Endocarditis ID was consulted for eval and mment of MRSA skin abscesses multiple from skin popping and to rule out endocarditis. Patient has had no care prior to arrival. Denies any fever, chest pain, sob, focal weakness or numbness. Currently denies any nausea, vomiting or diarrhea. Had vaginal bleeding 4 days ago. LMP was January 2007. Pt has no care. Denies any headache, neck pain or vision changes. Denies any focal deficits. Notes reviewed [place] MRSA surveillance negative BC negative CXR clear Antibiotics Current Medications Medications (Trade) Dose Ordered Sig/Deborah Route Start Time Stop Time Status Last Admin (Catapres) 0.1 mg Q6H PRN PO 10/07/17 09:00 10/07/17 09:15 (NS Flush) 2 ml BID IV FLUSH 10/07/17 21:00 10/07/17 22:14 (NS Flush) 2 ml UNSCH PRN IV FLUSH 10/07/17 09:15 (Zofran Inj) 4 mg Q6H PRN IV PUSH 10/07/17 09:15 (Ativan) 1 mg Q2H PRN PO 10/07/17 09:30 10/08/17 16:14 (Buprenorphine) 4 mg Q2H SL 10/07/17 11:00 10/08/17 16:14 Daptomycin 480 mg/ Sodium Chloride 100 ml @ 200 mls/hr Q24H IV 10/07/17 15:00 10/08/17 16:15 Cefepime HCl 2000 mg/Sodium Chloride 100 ml @ 200 mls/hr Q8H IV 10/07/17 14:00 10/08/17 14:13 (Habitrol 21 Mg Patch.24 Hr) 1 patch DAILY T-DERMAL 10/08/17 09:00 10/08/17 09:00 Miscellaneous Information 1 HS T-DERMAL 10/08/17 21:00 Past Medical History MRSA skin abscesses bilateral wrists. 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 Allergies: Coded Allergies: promethazine (Unverified Allergy, Severe, HALLUCINATIONS, N&V, 02/01/17) sulfamethoxazole (Unverified Allergy, Severe, HALLUCINATIONS, N&V, 02/01/17 ) trimethoprim (Unverified Allergy, Severe, HALLUCINATIONS, N&V, 02/01/17) ciprofloxacin (Unverified Allergy, Intermediate, REDDENED ITCHY RASH, 02/01) *MDRO Multi-Drug Resistant Organism (Verified Adverse Reaction, Unknown, MRSA, 12/20/16) MRSA (fluid) - 08/2014 MRSA (foot)-10/15/16 MRSA (finger) - 12/14/16 MRSA Hand 12/15/16 Objective . Vital Signs Date Time Temp Pulse Resp B/P (MAP) Pulse Ox O2 Delivery O2 Flow Rate FiO2 10/08/17 11:43 16 10/08/17 11:42 98.3 10/08/17 11:42 76 117/55 (75) 10/08/17 05:44 98.0 18 10/08/17 05:33 78 104/62 (76) 10/07/17 22:25 98.0 10/07/17 22:25 18 10/07/17 22:19 62 96/48 (64) 10/07/17 21:15 60 10/07/17 21:10 60 10/07/17 21:05 59 10/07/17 21:00 59 10/07/17 20:55 58 10/07/17 20:50 56 10/07/17 20:15 97.7 10/07/17 20:15 16 10/07/17 20:05 80 105/48 (67) 10/07/17 17:30 16 10/07/17 16:30 99.1 16 . Laboratory Tests Test 10/07/17 14:50 White Blood Count 10.9 TH/MM3 Red Blood Count 3.15 MIL/MM3 Hemoglobin 9.0 GM/DL Hematocrit 26.4 % Mean Corpuscular Volume 83.9 FL Mean Corpuscular Hemoglobin 28.6 PG Mean Corpuscular Hemoglobin Concent 34.1 % Red Cell Distribution Width 15.2 % Platelet Count 176 TH/MM3 Mean Platelet Volume 8.2 FL Neutrophils (%) (Auto) 93.4 % Lymphocytes (%) (Auto) 5.1 % Monocytes (%) (Auto) 1.2 % Eosinophils (%) (Auto) 0.2 % Basophils (%) (Auto) 0.1 % Neutrophils # (Auto) 10.2 TH/MM3 Lymphocytes # (Auto) 0.6 TH/MM3 Monocytes # (Auto) 0.1 TH/MM3 Eosinophils # (Auto) 0.0 TH/MM3 Basophils # (Auto) 0.0 TH/MM3 CBC Comment DIFF FINAL Differential Comment Laboratory Tests Test 10/07/17 14:50 Blood Urea Nitrogen 6 MG/DL Creatinine 0.50 MG/DL Random Glucose 165 MG/DL Total Protein 7.3 GM/DL Albumin 2.4 GM/DL Calcium Level 8.6 MG/DL Alkaline Phosphatase 126 U/L Aspartate Amino Transf (AST/SGOT) 12 U/L Alanine Aminotransferase (ALT/SGPT) 13 U/L Total Bilirubin 0.3 MG/DL Direct Bilirubin 0.1 MG/DL Sodium Level 138 MEQ/L Potassium Level 3.3 MEQ/L Chloride Level 107 MEQ/L Carbon Dioxide Level 22.9 MEQ/L Anion Gap 8 MEQ/L Estimat Glomerular Filtration Rate 146 ML/MIN Microbiology Date/Time Source Procedure Growth Status 10/07/17 14:50 Blood Peripheral Aerobic Blood Culture - Preliminary NO GROWTH IN 1 DAY Resulted 10/07/17 14:50 Blood Peripheral Anaerobic Blood Culture - Preliminary NO GROWTH IN 1 DAY Resulted 10/07/17 14:50 Blood Peripheral Aerobic Blood Culture - Preliminary NO GROWTH IN 1 DAY Resulted 10/07/17 14:50 Blood Peripheral Anaerobic Blood Culture - Preliminary NO GROWTH IN 1 DAY Resulted 10/07/17 11:00 Nasopharyngeal MRSA Surveillance Culture - Preliminary NO MRSA ISOLATED Resulted 10/07/17 09:55 Urine Clean Catch Urine Culture - Final 10-50,000 CFU/ML MIXED GRAM POSITIVE ... Complete Imaging Last Impressions Chest X-Ray 10/07/17 0000 Signed Impressions: Service Date/Time: Saturday, October 07, 2017 10:53 - CONCLUSION: No acute disease. Tushar Gaona MD Physical Exam GENERAL: This is a well-nourished, well-developed patient, in no apparent distress. SKIN: Multiple skin lesions. Left arm dorsum one large abscess, second one indurated with eschar. On RLE inner aspect of knee there is another indurated area, with eschar. Gravid Uterus with left upper quadrant cellulitis. HEAD: Atraumatic. Normocephalic. No temporal or scalp tenderness. EYES: Pupils equal round and reactive. Extraocular motions intact. No scleral icterus. No injection or drainage. ENT: Nose without bleeding, purulent drainage or septal hematoma. NECK: Trachea midline. Supple, nontender, no meningeal signs. CARDIOVASCULAR: Systolic murmur. RESPIRATORY: Clear to auscultation. Breath sounds equal bilaterally. No wheezes , rales, or rhonchi. GASTROINTESTINAL: Abdomen soft, non-tender, nondistended. MUSCULOSKELETAL: Extremities without clubbing, cyanosis, or edema. No joint tenderness, effusion, or edema noted. No calf tenderness. Negative Homans sign bilaterally. NEUROLOGICAL: Awake and alert. Non focal on gross exam. Psych agitated, non cooperative at times. Assessment & Plan Remarks Multiple skin abscess from skin popping, large one in LUEE Rule out endocarditis. H/o IVDA MRSA skin abscesses in past. 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 Drug withdrawal: on Suboxone now. Recs: Follow C/S Continue Cefepime IV (for PSAE or Gram neg infection pending cultures) Continue Daptomycin IV( 30 weeks cannot use Vanco, Zyvox or Teflaro for MRSA coverage) Follow 2D ECHO. Consider Doppler UE if high grade bacteremia to r/o septic thrombophlebitis. Vascular access consult. If difficult access ok to consider Central line but no PICC line till cleared by ID Surgery consult for drainage of abscesses from skin popping. Aarti Valderrama MD Oct 08, 2017 16:24
[2017-10-08] MEDS: cloNIDine HCL 0.1 MG TAB PO PRN (18:10)
[2017-10-08] MEDS: REMOVE OLD NICODERM (NICOTINE) PATCH T-DERMAL SCH (21:00)
[2017-10-09] VITALS (8 sets, daily range): BP systolic 105–120; BP diastolic 51–65; PULSE 70–84; RESP 16–18; TEMP 97.7–98.3
[2017-10-09] MEDS: LORazepam 1 MG TAB PO PRN ×3 (00:07→06:07)
[2017-10-09] MEDS: cloNIDine HCL 0.1 MG TAB PO PRN ×5 (00:07→23:59)
[2017-10-09] MEDS: BUPRENORPHINE HCL 8 MG SUBLINGUAL TAB SL SCH ×3 (00:07→18:09)
[2017-10-09] MEDS: SODIUM CHLORIDE 0.9% FLUSH 10 ML FLUSH IV FLUSH SCH ×2 (06:07→21:00)
[2017-10-09] MEDS: CEFEPIME INJ 2,000 MG in SODIUM CHLORIDE 0.9% INJ 100 ML IV SCH ×3 (06:07→22:06)
[2017-10-09] MEDS ORDERED: BUPRENORPHINE HCL 8 MG SUBLINGUAL TAB SL ONE (07:00)
[2017-10-09] MEDS: NICOTINE 21 MG/24 HR PATCH T-DERMAL SCH (09:00)
--- NOTE | 2017-10-09 09:29 | PD.OB.ANTE ---
Subjective Diagnosis: (1) Narcotic addiction (2) IV drug user (3) Skin abscess Interval History pt doing relatively well ,still demanding her meds on schedule and gets very agitated if not catered to in every way Objective Vital Signs Vital Signs Date Time Temp Pulse Resp B/P (MAP) Pulse Ox O2 Delivery O2 Flow Rate FiO2 10/09/17 06:12 71 111/63 (79) 10/08/17 23:00 18 10/08/17 22:57 87 10/08/17 22:57 117/60 (79) 10/08/17 22:45 78 10/08/17 22:40 75 10/08/17 22:35 77 10/08/17 22:30 73 10/08/17 22:25 73 10/08/17 22:20 71 10/08/17 22:15 79 10/08/17 22:05 79 10/08/17 22:00 78 10/08/17 21:55 79 10/08/17 21:50 75 10/08/17 21:45 73 10/08/17 21:40 77 10/08/17 20:00 18 10/08/17 19:11 91 112/57 (75) 10/08/17 11:43 16 10/08/17 11:42 98.3 10/08/17 11:42 76 117/55 (75) Lab & Micro Results Date/Time Source Procedure Growth Status 10/07/17 14:50 Blood Peripheral Aerobic Blood Culture - Preliminary NO GROWTH IN 1 DAY Resulted 10/07/17 14:50 Blood Peripheral Anaerobic Blood Culture - Preliminary NO GROWTH IN 1 DAY Resulted 10/07/17 11:00 Nasopharyngeal MRSA Surveillance Culture - Preliminary NO MRSA ISOLATED Resulted 10/07/17 09:55 Urine Clean Catch Urine Culture - Final 10-50,000 CFU/ML MIXED GRAM POSITIVE ... Complete Physical Exam GENERAL: Well-nourished, well-developed patient. CARDIOVASCULAR: Regular rate and rhythm without murmurs, gallops, or rubs. RESPIRATORY: Breath sounds equal bilaterally. No accessory muscle use. ABDOMEN/GI: Abdomen soft, non-tender. Fundus: [-] skin- with multiple abscesses and lesions FHT's: Category: [-1] Baseline: [133-] Reactive: [R-] Variability: [-mod] Decels: [none-] EXTREMITIES: No cyanosis or edema, non-tender, without signs of DVT. covered in old lesions and spots of cellulitis Assessment and Plan Problem List: (1) Narcotic addiction ICD Codes: F19.20 - Narcotic addiction Status: Acute (2) IV drug user ICD Codes: F19.90 - Other psychoactive substance use, unspecified, uncomplicated Status: Acute (3) Skin abscess ICD Codes: L02.91 - Cutaneous abscess, unspecified Status: Acute Qualifiers: Qualified Codes: L02.414 - Cutaneous abscess of left upper limb Assessment and Plan 30/31 week intrauterine multiparous with known history of IV heroin use who presents and withdrawal and wants help in getting withdrawal off of IV narcotic Patient also has multiple skin abscesses and cellulitis areas worst being in her left arm but they are smaller ones all over her body, she is on IV antibiotics and infectious disease is seen the patient as well as general surgery Dr. Sheriff is involved in the patient's care but has yet to see her ,she has been giving orders for Suboxone usage and plans to see the patient on Tuesday morning it is now Tuesday All of the above was discussed with the patient today and she understands her need to stay in the hospital to achieve withdrawal therapy as well as set up an outpatient support system and drug management program Trevin Edmonds II, MD Oct 09, 2017 09:29
[2017-10-09] MEDS ORDERED: SODIUM CHLORIDE 0.9% FLUSH 10 ML FLUSH IV FLUSH PRN (09:45)
[2017-10-09] MEDS ORDERED: IRON SUCROSE 100 MG/5 ML VIAL IV PUSH ONE (10:00)
[2017-10-09] MEDS: LORazepam 0.5 MG TAB PO SCH ×4 (10:27→22:06)
--- NOTE | 2017-10-09 11:54 | MB ---
cc: Marcella Aguirre MD DATE: 10/09/2017 REQUESTING PHYSICIAN: Patient is being seen at the request of Aarti Valderrama MD. REASON FOR CONSULTATION: Abscess of the left forearm. HISTORY OF PRESENT ILLNESS: The patient is a 27-year-old female with a history of intravenous drug abuse. The patient is also 37 weeks . According to the record, she has had no care. She admitted to using drugs recently with injection. The patient developed an abscess of her left forearm. She has been refusing treatment and apparently has been refusing monitoring of her baby. Consultation is requested regarding evaluation and treatment of the left forearm abscess. PAST MEDICAL HISTORY: Significant for endocarditis, history of cellulitis, . OBSTETRIC HISTORY: She is 3, para 2. PAST SURGICAL HISTORY: She has had bilateral wrist abscesses drained. SOCIAL HISTORY: The patient uses tobacco and injects heroin. ALLERGIES: INCLUDE PROMETHAZINE, SULFAMETHOXAZOLE, TRIMETHOPRIM AND CIPRO, AND SHE APPARENTLY HAS HAD MULTIDRUG RESISTANT ORGANISMS. MEDICATIONS: Listed on the chart. REVIEW OF SYSTEMS: As noted. PHYSICAL EXAMINATION: GENERAL: The patient is lying in bed. Examination is limited due to the patient's refusal. EXTREMITIES: Left arm reveals a superficial abscess measuring 1.5 cm in diameter. It is tender and fluctuant. There is no surrounding cellulitis. LABORATORY DATA: Reveals a white count of 10.9 with 93.4% neutrophils. Her albumin is 2.4, random glucose is 165 taken at 2:50 on 10/07/2017. Her urine apparently is significant with culture indicated. Urine is also positive for cocaine. The remainder is pending. IMPRESSION: The patient is an intravenous drug abuser, 37 weeks , with a left forearm abscess. PLAN: I am recommending that the abscess be drained. The patient is refusing drainage and would like to have it drain spontaneously on its own. The nurse was given my phone number so if the patient does change her mind, we would be able to assist in drainage. Marcella Aguirre MD [facility] , 11:13 AM , 11:53 AM JANICE
[2017-10-09] MEDS ORDERED: LORazepam 0.5 MG TAB PO SCH (12:00)
[2017-10-09] MEDS ORDERED: BUPRENORPHINE HCL 8 MG SUBLINGUAL TAB SL SCH (14:00)
[2017-10-09] MEDS: SODIUM CHLORIDE 0.9% IV SCH (15:40)
[2017-10-09] MEDS: DAPTOMYCIN IV SCH (15:40)
[2017-10-09 16:44] LABS: AUTOMATED NEUTROPHIL # 6.8 TH/MM3 (1.8-7.7); BASOPHIL % 0.2 % (0.0-2.0); EOSINOPHIL # 0.1 TH/MM3 (0-0.4); EOSINOPHIL % 0.8 % (0.0-4.0); HEMATOCRIT 28.9 % (35.0-46.0); HEMOGLOBIN 9.7 GM/DL (11.6-15.3); LYMPH % 11.7 % (9.0-44.0); MEAN CELL VOLUME 85.7 FL (80.0-100.0); MEAN CORPUSCULAR HEMOGLOBIN 28.7 PG (27.0-34.0); MEAN CORPUSCULAR HGB CONC 33.5 % (32.0-36.0); MEAN PLATELET VOLUME 8.6 FL (7.0-11.0); MONO % 4.9 % (0.0-8.0); MONOCYTE # 0.4 TH/MM3 (0-0.9); NEUT % 82.4 % (16.0-70.0); PLATELET COUNT 177 TH/MM3 (150-450); RED BLOOD COUNT 3.37 MIL/MM3 (4.00-5.30); RED CELL DISTRIBUTION WIDTH 15.3 % (11.6-17.2); WHITE BLOOD COUNT 8.3 TH/MM3 (4.0-11.0)
[2017-10-09] MEDS: REMOVE OLD NICODERM (NICOTINE) PATCH T-DERMAL SCH (21:00)
[2017-10-10] VITALS (9 sets, daily range): BP systolic 106–108; BP diastolic 52–65; PULSE 72–83; RESP 16–18; TEMP 98.3
[2017-10-10] MEDS: BUPRENORPHINE HCL 8 MG SUBLINGUAL TAB SL SCH (01:55)
[2017-10-10] MEDS: LORazepam 0.5 MG TAB PO SCH ×3 (01:56→10:19)
[2017-10-10] MEDS: CEFEPIME INJ 2,000 MG in SODIUM CHLORIDE 0.9% INJ 100 ML IV SCH (06:09)
[2017-10-10] MEDS: SODIUM CHLORIDE 0.9% FLUSH 10 ML FLUSH IV FLUSH SCH (06:09)
--- NOTE | 2017-10-10 07:24 | PD.CONS ---
HPI Chief Complaint Consult for acute and chronic substance use during Date Seen: Oct 10, 2017 Travel History International Travel<30 Days: No Contact w/Intl Traveler<30Days: No Known Affected Area: No History of Present Illness HPI Initial consult for medication assistance called by Dr. Ramona Darnell on Tuesday. Medication management through phone calls performed over weekend. Today is hospital day 4 for this 27 yo swf who arrived to [facility] on Tuesday in acute withdrawal from heroin. She had been using other substances also and the screen so far has shown cocaine. She has had no care this . Initial evaluation suggests a clemens not in acute distress and about 30 weeks gestation. A quick review of her prior hospital history shows numerous visits for infections of skin, soft tissues and joints. She has had her right middle finger partially amputated. She has records from her prior pregnancies, showing intermittent care at the hospital but nothing consistent. She is hep C positive, HIV-,hepB-. She is anemic and although her WBCs are not significantly elevated, she has a significant left shift. She is on IV antibiotics and awaiting surgical assessment of abacesses for I & D. Allergies-Medications (Allergen,Severity, Reaction): Coded Allergies: promethazine (Unverified Allergy, Severe, HALLUCINATIONS, N&V, 02/01/17) sulfamethoxazole (Unverified Allergy, Severe, HALLUCINATIONS, N&V, 02/01/17 ) trimethoprim (Unverified Allergy, Severe, HALLUCINATIONS, N&V, 02/01/17) ciprofloxacin (Unverified Allergy, Intermediate, REDDENED ITCHY RASH, 02/01) *MDRO Multi-Drug Resistant Organism (Verified Adverse Reaction, Unknown, MRSA, 12/20/16) MRSA (fluid) - 08/2014 MRSA (foot)-10/15/16 MRSA (finger) - 12/14/16 MRSA Hand 12/15/16 Home Meds Active Scripts Cephalexin (Cephalexin) 500 Mg Cap, 500 MG PO Q12H for Infection for 7 Days, # 14 CAP 0 Refills Prov:Juliann Richey DO 10/07/17 Hydrocodone-Acetaminophen (Banner) 5-325 mg Tab, 1 TAB PO Q6H Y for PAIN, #12 TAB 0 Refills Prov:Arnoldo Easton MD 12/18/16 Doxycycline Hyclate (Doxycycline Hyclate) 100 Mg Cap, 100 MG PO BID for Infection for 10 Days, CAP 0 Refills Prov:Arnoldo Easton MD 12/18/16 Sulfamethoxazole-Trimethoprim (Bactrim DS) 800-160 Mg Tab, 1 TAB PO BID for Infection for 10 Days, TAB 0 Refills Prov:Arnoldo Easton MD 12/18/16 Physical Exam Vital Signs Date Time Temp Pulse Resp B/P (MAP) Pulse Ox O2 Delivery O2 Flow Rate FiO2 10/09/17 23:00 97.7 10/09/17 23:00 18 10/09/17 22:45 84 10/09/17 22:40 74 10/09/17 22:35 70 10/09/17 22:30 70 10/09/17 22:26 74 105/51 (69) 10/09/17 12:03 75 120/65 (83) 10/09/17 12:03 98.3 16 Narrative GENERAL: Well-nourished, well-developed patient. SKIN: Warm and dry. HEAD: Normocephalic and atraumatic. EYES: No scleral icterus. No injection or drainage. ENT: No nasal drainage noted. Mucous membranes pink. Airway patent. NECK: Supple, trachea midline. No JVD. CARDIOVASCULAR: Regular rate and rhythm without murmurs, gallops, or rubs. RESPIRATORY: Breath sounds equal bilaterally. No accessory muscle use. BREASTS: Bilateral exam showed no masses , no retractions, no nipple discharge. ABDOMEN/GI: Abdomen soft, non-tender, bowel sounds present, no rebound, no guarding Gravid to [-] weeks size Fundal Height: [-] GENITOURINARY: External Genitalia: intact and normal in appearance BUS glands: [-] Cervix: [-] Dilatation: [-] Effacement: [-] Station: [-] Presentation: [-] Membranes: [intact or ruptured] Uterine Contractions: [-] FHT's: Category: [-] Baseline: [-] Reactive: [-] Variability: [-] Decels: [-] EXTREMITIES: No cyanosis or edema. BACK: Nontender without obvious deformity. No CVA tenderness. NEUROLOGICAL: Awake and alert. Motor and sensory grossly within normal limits. Five out of 5 muscle strength in all muscle groups. Normal speech. Data Data Orders Orders Consult Hand Surgery (10/09/17 ) (Hub Use Only)Inp Phy Cons/Ref (10/09/17 ) Buprenorphine (Buprenorphine) (10/09/17 14:00) Iron Sucrose Inj (Venofer Inj) (10/09/17 10:00) Lorazepam (Ativan) (10/09/17 12:00) Thyroid Stimulating Hormone (10/09/17 09:32) Hemoglobin (Hgb) A1c (10/09/17 09:33) Complete Blood Count With Diff (10/09/17 09:33) Sodium Chloride 0.9% Flush (Ns Flush) (10/09/17 21:00) Sodium Chloride 0.9% Flush (Ns Flush) (10/09/17 09:45) Us Ob Limited (10/10/17 09:33) Buprenorphine (Buprenorphine) (10/09/17 11:00) Lorazepam (Ativan) (10/09/17 11:00) Vascular Access Team Consult/P PRN (10/09/17 14:29) Vascular Poc Ultrasound (10/09/17 ) Buprenorphine (Buprenorphine) (10/10/17 10:00) Lorazepam (Ativan) (10/10/17 06:00) Labs Laboratory Tests Test 10/09/17 14:50 White Blood Count 8.3 Red Blood Count 3.37 Hemoglobin 9.7 Hematocrit 28.9 Mean Corpuscular Volume 85.7 Mean Corpuscular Hemoglobin 28.7 Mean Corpuscular Hemoglobin Concent 33.5 Red Cell Distribution Width 15.3 Platelet Count 177 Mean Platelet Volume 8.6 Neutrophils (%) (Auto) 82.4 Lymphocytes (%) (Auto) 11.7 Monocytes (%) (Auto) 4.9 Eosinophils (%) (Auto) 0.8 Basophils (%) (Auto) 0.2 Neutrophils # (Auto) 6.8 Lymphocytes # (Auto) 1.0 Monocytes # (Auto) 0.4 Eosinophils # (Auto) 0.1 Basophils # (Auto) 0.0 CBC Comment DIFF FINAL Differential Comment Thyroid Stimulating Hormone 3rd Gen 1.410 Date/Time Source Procedure Growth Status 10/07/17 14:50 Blood Peripheral Aerobic Blood Culture - Preliminary NO GROWTH IN 2 DAYS Resulted 10/07/17 14:50 Blood Peripheral Anaerobic Blood Culture - Preliminary NO GROWTH IN 2 DAYS Resulted 10/07/17 11:00 Nasopharyngeal MRSA Surveillance Culture - Final NO MRSA ISOLATED Complete 10/07/17 09:55 Urine Clean Catch Urine Culture - Final 10-50,000 CFU/ML MIXED GRAM POSITIVE ... Complete MDM Disposition: 01 DISCHARGE HOME Condition: Stable Scripts Cephalexin (Cephalexin) 500 Mg Cap 500 MG PO Q12H for Infection for 7 Days, #14 CAP 0 Refills Prov: Juliann Richey DO 10/07/17 Patient Instructions: General Instructions Additional Instructions: Pt is being transferred to OB ED in stable conditions since she has obstetric related complaints and is currently in her third trimester. Return precautions given. Departure Forms: Tests/Procedures Leah Sheriff MD Oct 10, 2017 07:24
[2017-10-10] MEDS: cloNIDine HCL 0.1 MG TAB PO PRN (07:58)
--- NOTE | 2017-10-10 08:05 | HHI.IDPN ---
Subjective Subjective Remarks PATIENT SEEN AND EXAMINED ON BEHALF OF DR. PRICE is a 27 y/o CF with PMHx of IVDA, cellulitis, possible abscess/ gangrene and amputation of right index finger.Patient was admitted with complains of abdominal pain. She reports last heroin use 2 days prior to admission. Reports having vaginal bleeding but no vaginal foul smelling discharge so far. She thinks her baby is moving well but has been refusing monitoring during her hospital stay. Patient was noted to have a murmur and several skin abscesses and due to her history of MRSA infections, IVDA and Endocarditis ID was consulted for eval and mment of MRSA skin abscesses multiple from skin popping and to rule out endocarditis. Patient has had no care prior to arrival. Denies any fever, chest pain, sob, focal weakness or numbness. Currently denies any nausea, vomiting or diarrhea. Had vaginal bleeding 4 days ago. LMP was January 2007. Pt has no care. Denies any headache, neck pain or vision changes. Denies any focal deficits. Notes reviewed DW Dr. Darnell, patient doing well on Subutex. OB working on d/c plan once cleared by Hand service. patient reports she is feeling much better asking if she can go home today, has 18mo old at home to care for no abdominal pain or cramping no vaginal bleeding no fevers, chills no chest pain no dyspnea no dysuria no diarrhea afebrile WBC WNL MRSA surveillance negative BC negative CXR clear Antibiotics IV CEFEPIME IV DAPTOMYCIN Current Medications Medications (Trade) Dose Ordered Sig/Deborah Route Start Time Stop Time Status Last Admin (Catapres) 0.1 mg Q6H PRN PO 10/07/17 09:00 10/07/17 09:15 (NS Flush) 2 ml BID IV FLUSH 10/07/17 21:00 10/07/17 22:14 (NS Flush) 2 ml UNSCH PRN IV FLUSH 10/07/17 09:15 (Zofran Inj) 4 mg Q6H PRN IV PUSH 10/07/17 09:15 (Ativan) 1 mg Q2H PRN PO 10/07/17 09:30 10/08/17 16:14 (Buprenorphine) 4 mg Q2H SL 10/07/17 11:00 4/21/18 16:14 Daptomycin 480 mg/ Sodium Chloride 100 ml @ 200 mls/hr Q24H IV 10/07/17 15:00 10/08/17 16:15 Cefepime HCl 2000 mg/Sodium Chloride 100 ml @ 200 mls/hr Q8H IV 10/07/17 14:00 10/08/17 14:13 (Habitrol 21 Mg Patch.24 Hr) 1 patch DAILY T-DERMAL 10/08/17 09:00 10/08/17 09:00 Miscellaneous Information 1 HS T-DERMAL 10/08/17 21:00 Lines PIV with no e/o infection Past Medical History MRSA skin abscesses bilateral wrists. 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 (Gayatri Terrell) Allergies: Coded Allergies: promethazine (Unverified Allergy, Severe, HALLUCINATIONS, N&V, 02/01/17) sulfamethoxazole (Unverified Allergy, Severe, HALLUCINATIONS, N&V, 02/01/17 ) trimethoprim (Unverified Allergy, Severe, HALLUCINATIONS, N&V, 02/01/17) ciprofloxacin (Unverified Allergy, Intermediate, REDDENED ITCHY RASH, 02/01) *MDRO Multi-Drug Resistant Organism (Verified Adverse Reaction, Unknown, MRSA, 12/20/16) MRSA (fluid) - 08/2014 MRSA (foot)-10/15/16 MRSA (finger) - 12/14/16 MRSA Hand 12/15/16 Objective . Vital Signs Date Time Temp Pulse Resp B/P (MAP) Pulse Ox O2 Delivery O2 Flow Rate FiO2 10/09/17 23:00 97.7 10/09/17 23:00 18 10/09/17 22:45 84 10/09/17 22:40 74 10/09/17 22:35 70 10/09/17 22:30 70 10/09/17 22:26 74 105/51 (69) 10/09/17 12:03 75 120/65 (83) 10/09/17 12:03 98.3 16 . Laboratory Tests Test 10/09/17 14:50 White Blood Count 8.3 TH/MM3 Red Blood Count 3.37 MIL/MM3 Hemoglobin 9.7 GM/DL Hematocrit 28.9 % Mean Corpuscular Volume 85.7 FL Mean Corpuscular Hemoglobin 28.7 PG Mean Corpuscular Hemoglobin Concent 33.5 % Red Cell Distribution Width 15.3 % Platelet Count 177 TH/MM3 Mean Platelet Volume 8.6 FL Neutrophils (%) (Auto) 82.4 % Lymphocytes (%) (Auto) 11.7 % Monocytes (%) (Auto) 4.9 % Eosinophils (%) (Auto) 0.8 % Basophils (%) (Auto) 0.2 % Neutrophils # (Auto) 6.8 TH/MM3 Lymphocytes # (Auto) 1.0 TH/MM3 Monocytes # (Auto) 0.4 TH/MM3 Eosinophils # (Auto) 0.1 TH/MM3 Basophils # (Auto) 0.0 TH/MM3 CBC Comment DIFF FINAL Differential Comment Laboratory Tests Test 10/09/17 14:50 Thyroid Stimulating Hormone 3rd Gen 1.410 uIU/ML Microbiology Date/Time Source Procedure Growth Status 10/07/17 14:50 Blood Peripheral Aerobic Blood Culture - Preliminary NO GROWTH IN 2 DAYS Resulted 10/07/17 14:50 Blood Peripheral Anaerobic Blood Culture - Preliminary NO GROWTH IN 2 DAYS Resulted 10/07/17 14:50 Blood Peripheral Aerobic Blood Culture - Preliminary NO GROWTH IN 2 DAYS Resulted 10/07/17 14:50 Blood Peripheral Anaerobic Blood Culture - Preliminary NO GROWTH IN 2 DAYS Resulted 10/07/17 11:00 Nasopharyngeal MRSA Surveillance Culture - Final NO MRSA ISOLATED Complete 10/07/17 09:55 Urine Clean Catch Urine Culture - Final 10-50,000 CFU/ML MIXED GRAM POSITIVE ... Complete Imaging Last Impressions Chest X-Ray 10/07/17 0000 Signed Impressions: Service Date/Time: Saturday, October 07, 2017 10:53 - CONCLUSION: No acute disease. Tushar Gaona MD Physical Exam GENERAL: This is a well-nourished, well-developed young female patient, in no apparent distress. Awake and alert. Appears comfortable. SKIN: Multiple skin lesions. Left arm dorsum one large abscess, much improved but still sizeable with associated erythema, tenderness and warmth, looks amenable to I&D. Second one indurated with eschar. On RLE inner aspect of knee there was another indurated area that has improved and is only eschar at this time. Gravid Uterus with left upper quadrant cellulitis much improved with eschar only , no appreciable erythema, warmth or fluctuance. HEAD: Atraumatic. Normocephalic. No temporal or scalp tenderness. EYES: Pupils equal round and reactive. Extraocular motions intact. No scleral icterus. No injection or drainage. ENT: Nose without bleeding, purulent drainage or septal hematoma. Airway patent. MMM. NECK: Trachea midline. Supple, nontender, no meningeal signs. CARDIOVASCULAR: Systolic murmur. RESPIRATORY: Clear to auscultation. Breath sounds equal bilaterally. No wheezes , rales, or rhonchi. GASTROINTESTINAL: Abdomen soft, non-tender, nondistended. MUSCULOSKELETAL: Extremities without clubbing, cyanosis, or edema. No joint tenderness, effusion, or edema noted. No calf tenderness. NEUROLOGICAL: Awake and alert. Able to move all extremities spontaneously. Motor and sensory grossly intact bilateral upper and lower extremities. PSYCHIATRIC: Calm and cooperative. Poor judgement and insight. (Gayatri Terrell) Assessment & Plan Remarks Multiple skin abscess from skin popping, large one in LUE -blood cultures neg to date Rule out endocarditis. H/o IVDA MRSA skin abscesses in past. 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 Hep C Drug withdrawal: on Suboxone now. Pyuria -UCX with mixed gram + wolfgang Hypokalemia Recs: Follow C/S - patient refused I&D previously, now says she is agreeable to I&D of left forearm abscess. Will need cultures to result before final ID recs can be made. Continue Cefepime IV (for PSAE or Gram neg infection pending cultures) Continue Daptomycin IV( 30 weeks cannot use Vanco, Zyvox or Teflaro for MRSA coverage) Follow 2D ECHO -study done, awaiting report. Consider Doppler UE if high grade bacteremia to r/o septic thrombophlebitis. If difficult access ok to consider Central line but no PICC line till cleared by ID Surgery consult for drainage of abscesses from skin popping, appreciate assistance. Patient refused procedure previously but now is agreeable. Nurse to contact Hand service to attempt I&D again and send fluid for studies. Follow up on fluid study results Continue to monitor final blood cx results Continue to monitor fevers and white count Further recommendations to follow (Gayatri Terrell) Remarks The exam, history, and the medical decision-making described in the above note were completed with the assistance of the mid-level provider. I reviewed and agree with the findings presented. I attest that I had a [id number] encounter with the patient on the same day, and personally performed and documented my assessment and findings in the medical record. Delayed entry Jian Hand surgery earlier in the day he is ok with bedside debridement of abscesses. Dw Primary team concern that if the abscesses are not drained the infection wont get better and she will end up with endocarditis. Upon returning to patient I was informed that the patient had signed off AMA after she was found to be self injecting IV drugs in hospital. When paraphrenalia was being confiscated she became violent and ultimately checked herself out of hospital. jian Cha resident (Danay Price MD) Gayatri Terrell Oct 10, 2017 08:05 Danay Price MD Oct 10, 2017 15:41
--- NOTE | 2017-10-10 08:33 | ECHRPT ---
Indication: CONCLUSIONS Normal left ventricular size. Wall thickness is normal. The left ventricular systolic function is low normal with an estimated ejection fraction in the rang e of 50- 55%. The left atrial size is mildly dilated. Mild mitral valve regurgitation. There is trace tricuspid valve regurgitation. The estimated pulmonary arterial pressure is 26 mmHg. Trivial pulmonary valve regurgitation. BP: / HR: Rhythm: Sinus MEASUREMENTS (Male / Female) Normal Values Technical Quality:Fair 2D ECHO LV Diastolic Diameter PLAX 4.6 cm 4.2 - 5.9 / 3.9 - 5.3 cm LV Systolic Diameter PLAX 3.4 cm IVS Diastolic Thickness 0.7 cm 0.6 - 1.0 / 0.6 - 0.9 cm LVPW Diastolic Thickness 0.7 cm 0.6 - 1.0 / 0.6 - 0.9 cm LV Relative Wall Thickness 0.3 RV Internal Dim ED PLAX 2.5 cm LVOT Diameter 1.7 cm Aortic Root Diameter 2.6 cm LA Systolic Diameter LX 3.5 cm 3.0 - 4.0 / 2.7 - 3.8 cm DOPPLER AV Peak Velocity 136.0 cm/s AV Peak Gradient 7.4 mmHg AV Mean Gradient 4.0 mmHg AV Velocity Time Integral 25.9 cm LVOT Peak Velocity 106.0 cm/s LVOT Peak Gradient 4.5 mmHg LVOT Velocity Time Integral 18.0 cm AV Area Cont Eq vti 1.6 cm AV Area Cont Eq pk 1.8 cm Mitral E Point Velocity 98.7 cm/s Mitral A Point Velocity 109.0 cm/s Mitral E to A Ratio 0.9 TR Peak Velocity 201.0 cm/s TR Peak Gradient 16.2 mmHg PV Peak Velocity 85.0 cm/s PV Peak Gradient 2.9 mmHg FINDINGS LEFT VENTRICLE Normal left ventricular size. Wall thickness is normal. The left ventricular systolic function is low normal with an estimated ejection fraction in the rang e of 50- 55%. RIGHT VENTRICLE Normal right ventricular size and systolic function. LEFT ATRIUM The left atrial size is mildly dilated. RIGHT ATRIUM The right atrial size is normal. ATRIAL SEPTUM No atrial level shunt is demonstrated by color flow Doppler interrogation. AORTA The aortic root and proximal ascending aorta are normal in size on limited imaging. MITRAL VALVE Mild mitral valve regurgitation. AORTIC VALVE Trileaflet aortic valve. No aortic valve stenosis or regurgitation. TRICUSPID VALVE There is trace tricuspid valve regurgitation. The estimated pulmonary arterial pressure is 26 mmHg. PULMONARY VALVE Trivial pulmonary valve regurgitation. VESSELS The inferior vena cava is normal in size. PERICARDIUM No pericardial effusion. Tiago Tolentino MD Edited by: automotive warranty administrator automotive warranty administrator (Electronically Signed) Final Date:07 October 2017 18:11 Amended: 10 October 2017 08:32
[2017-10-10] MEDS: NICOTINE 21 MG/24 HR PATCH T-DERMAL SCH (09:00)
[2017-10-10] MEDS: REMOVE OLD NICODERM (NICOTINE) PATCH T-DERMAL SCH (09:01)
--- NOTE | 2017-10-10 09:41 | PD.OB.ANTE ---
Subjective Diagnosis: (1) Narcotic addiction (2) IV drug user (3) Skin abscess Interval History 27-year-old female past medical history of IV drug use, cellulitis, history of MRSA, and amputation of the right index finger due to osteomyelitis. Patient admitted on 10/07/17 for assistance with withdrawals. ID and hand surgeon are consulted. She is currently on cefepime and daptomycin. Patient is on Subutex for withdrawals. Patient is doing well this morning. Slightly agitated. Patient is wanting to go home today because she has a 18 month infant at home. Vital signs stable. Denies fevers chills, chest pain, shortness of breath, abdominal pain, nausea/ vomiting, diarrhea, vaginal bleeding, leakage of fluid, contractions. Objective Vital Signs Vital Signs Date Time Temp Pulse Resp B/P (MAP) Pulse Ox O2 Delivery O2 Flow Rate FiO2 10/10/17 09:00 16 10/10/17 08:53 75 106/52 (70) 10/10/17 08:07 98.3 10/10/17 08:07 17 10/10/17 08:02 83 108/63 (78) 10/09/17 23:00 97.7 10/09/17 23:00 18 10/09/17 22:45 84 10/09/17 22:40 74 10/09/17 22:35 70 10/09/17 22:30 70 10/09/17 22:26 74 105/51 (69) 10/09/17 12:03 75 120/65 (83) 10/09/17 12:03 98.3 16 Lab & Micro Results Test 10/09/17 14:50 White Blood Count 8.3 TH/MM3 Red Blood Count 3.37 MIL/MM3 Hemoglobin 9.7 GM/DL Hematocrit 28.9 % Mean Corpuscular Volume 85.7 FL Mean Corpuscular Hemoglobin 28.7 PG Mean Corpuscular Hemoglobin Concent 33.5 % Red Cell Distribution Width 15.3 % Platelet Count 177 TH/MM3 Mean Platelet Volume 8.6 FL Neutrophils (%) (Auto) 82.4 % Lymphocytes (%) (Auto) 11.7 % Monocytes (%) (Auto) 4.9 % Eosinophils (%) (Auto) 0.8 % Basophils (%) (Auto) 0.2 % Neutrophils # (Auto) 6.8 TH/MM3 Lymphocytes # (Auto) 1.0 TH/MM3 Monocytes # (Auto) 0.4 TH/MM3 Eosinophils # (Auto) 0.1 TH/MM3 Basophils # (Auto) 0.0 TH/MM3 CBC Comment DIFF FINAL Differential Comment Thyroid Stimulating Hormone 3rd Gen 1.410 uIU/ML Date/Time Source Procedure Growth Status 10/07/17 14:50 Blood Peripheral Aerobic Blood Culture - Preliminary NO GROWTH IN 2 DAYS Resulted 10/07/17 14:50 Blood Peripheral Anaerobic Blood Culture - Preliminary NO GROWTH IN 2 DAYS Resulted 10/07/17 11:00 Nasopharyngeal MRSA Surveillance Culture - Final NO MRSA ISOLATED Complete 10/07/17 09:55 Urine Clean Catch Urine Culture - Final 10-50,000 CFU/ML MIXED GRAM POSITIVE ... Complete Physical Exam GENERAL: Well-nourished, well-developed patient. Skin: Multiple skin lesions. Several large abscesses located on the left arm associated with erythema, tenderness and warmth. CARDIOVASCULAR: Regular rate and rhythm without murmurs, gallops, or rubs. RESPIRATORY: Breath sounds equal bilaterally. No accessory muscle use. ABDOMEN/GI: Abdomen soft, non-tender. EXTREMITIES: No cyanosis or edema, non-tender, without signs of DVT. Assessment and Plan Problem List: (1) Narcotic addiction ICD Codes: F19.20 - Narcotic addiction Status: Acute (2) IV drug user ICD Codes: F19.90 - Other psychoactive substance use, unspecified, uncomplicated Status: Acute (3) Skin abscess ICD Codes: L02.91 - Cutaneous abscess, unspecified Status: Acute Qualifiers: Qualified Codes: L02.414 - Cutaneous abscess of left upper limb Assessment and Plan 27-year-old at 30/6 week intrauterine multiparous with known history of IV heroin use who presents and withdrawal and wants help in getting withdrawal off of IV narcotic #1 multiple skin abscesses and cellulitis Patient also has multiple skin abscesses and cellulitis areas worst being in her left arm but they are smaller ones all over her body, she is on IV antibiotics and infectious disease is seen the patient as well as general surgery -Blood cultures 10/07 NGTD -Rule out endocarditis, echocardiogram without evidence for endocarditis -Continue cefepime 2,000mg IV q8h -Continue daptomycin 490 mg IV q24h -Hand Surgeon to attempt I&D -ID following the patient, will transition to PO ABX per ID recommendations #2 narcotic addiction -Buprenorphine 8mg SL TID -Ativan 0.5 mg p.o. every 4h -Dr. Sheriff following the patient and managing the patient's Subutex, will continue buprenorphine 8mg SL TID as above Discussed with Dr. Sheriff this morning regarding discharge planning - May admit the patient involuntary for stabilization of her symptoms, will discuss with legal department to assist with petition for involuntary assessment and stabilization - Primary OB team will call the patient's mother to have her obtain forms from a courthouse to potentially [place] act the patient involuntarily -Case management consulted to help with placement Kacey Wilkerson MD R1 Oct 10, 2017 09:40
[2017-10-10] MEDS ORDERED: BUPRENORPHINE HCL 8 MG SUBLINGUAL TAB SL SCH ×2 (10:00→12:00)
--- NOTE | 2017-10-10 12:38 | PD.AMA ---
Against Medical Advice Note Discharge Disposition: Against Medical Advice Pt Condition on Discharge: Stable AMA Statement Patient Winsome Reyes has decided to leave the hospital against medical advice. This patient has the capacity to refuse care and understands the risks of leaving, including permanent disability and/or , and has had an opportunity to ask questions about her condition. The patient has been informed that she may return for care at any time. She was explicitly stated the risk of her leaving as well as the risks to her fetus which includes . She was encouraged to seek follow up as an outpatient. David Esposito MD R2 Oct 10, 2017 12:38
== END 2017-10-10 12:47 | disposition left against medical advice (07) | DRG 781 ==
LOC: NEPE 06:52 → H2EA 09:26 → OBSVTOIN 09:28
PROVIDERS: ADMIT Obstetrics & Gynecology; ATTEND Obstetrics & Gynecology
DX: O46.93 Antepartum hemorrhage, unspecified, third trimester (principal); O99.323 Drug use complicating pregnancy, third trimester; L02.414 Cutaneous abscess of left upper limb; F11.23 Opioid dependence with withdrawal; L02.91 Cutaneous abscess, unspecified; F19.10 Other psychoactive substance abuse, uncomplicated; O26.893 Other specified pregnancy related conditions, third trimester; Z3A.30 30 weeks gestation of pregnancy; F17.200 Nicotine dependence, unspecified, uncomplicated; Z89.021 Acquired absence of right finger(s); O99.333 Smoking (tobacco) complicating pregnancy, third trimester; Z88.1 Allergy status to other antibiotic agents; Z88.2 Allergy status to sulfonamides; Z88.8 Allergy status to other drugs, medicaments and biological substances
CPT/HCPCS: 71045; 76805; 76815; 76937; 80053; 80074; 80307; 81001; 82248; 82948; 83036; 84443; 85025; 86592; 86703; 86762; 86850; 86900; 86901; 87040; 87081; 87086; 87491; 87591; 93306; 99285; G0481; J0692; J0702; J0878; J1756

== ENCOUNTER 2017-11-16 01:24 | Emergency (ER) | payer MEDICAID, OTHER ==
[~2017-11-16 01:24] MED LIST changes: +CEPH500C PO
[2017-11-16] MEDS ORDERED: BUPRENORPHINE/NALOXONE 8 MG/2 MG SUBLINGUAL TAB SL ONE (02:30)
[2017-11-16] MEDS ORDERED: LORazepam 1 MG TAB PO ONE (02:30)
[2017-11-16] MEDS ORDERED: NITROFURANTOIN MONOHYD MACROCR 100 MG CAP PO ONE (02:30)
[2017-11-16 02:38] LABS: BACTERIA, URINE OCC /hpf; BILIRUBIN, URINE NEG (NEG); BLOOD, URINE NEG (NEG); GLUCOSE,URINE NEG (NEG); KETONE, URINE NEG (NEG); MUCUS URINE FEW /lpf (OCC); NITRITE,URINE NEG (NEG); PH, URINE 7.5 (5.0-8.5); SQUAMOUS EPITHELIAL CELL URINE 3 /hpf (0-5); TRANSITIONAL EPI CELLS, URINE <1 /hpf; URINE COLOR YELLOW (YELLW/STRAW); URINE LEUKOCYTE ESTERASE LARGE (NEG); WHITE BLOOD CELL CLUMPS FEW
--- NOTE | 2017-11-16 03:42 | PD ---
HPI Chief Complaint ctxs Date Seen: November 16, 2017 Time Seen: 03:35 Travel History International Travel<30 Days: No Contact w/Intl Traveler<30Days: No Known Affected Area: No History of Present Illness HPI pt. is a @ 36 2/7 weeks present w/ c/o ctxs. pt. states thruout the day has increasing ctxs. increased in freq and intensity. pt. also on subutex and ativan by dr. dow, and ran out and took heroin earlier in evening. +FM, no lof/vb. Weeks Gestation: 36 Para: 3 : 4 History Past Medical History Narrative Medical polysubstance abuse on ativan and subutex by dr. dow. Obstetric History Obstetric History , s/p x 3 Past Surgical History Surgical History: No Previous Surgery Family History Family History: Negative Social History Alcohol Use: No Tobacco Use: No Substance Abuse: Yes Allergies-Medications (Allergen,Severity, Reaction): Coded Allergies: promethazine (Unverified Allergy, Severe, HALLUCINATIONS, N&V, 02/01/17) sulfamethoxazole (Unverified Allergy, Severe, HALLUCINATIONS, N&V, 02/01/17 ) trimethoprim (Unverified Allergy, Severe, HALLUCINATIONS, N&V, 02/01/17) ciprofloxacin (Unverified Allergy, Intermediate, REDDENED ITCHY RASH, 02/01) *MDRO Multi-Drug Resistant Organism (Verified Adverse Reaction, Unknown, MRSA, 12/20/16) MRSA (fluid) - 08/2014 MRSA (foot)-10/15/16 MRSA (finger) - 12/14/16 MRSA Hand 12/15/16 Home Meds Active Scripts Cephalexin (Cephalexin) 500 Mg Cap, 500 MG PO Q12H for Infection for 7 Days, # 14 CAP 0 Refills Prov:Juliann Richey DO 10/07/17 Hydrocodone-Acetaminophen ([place]) 5-325 mg Tab, 1 TAB PO Q6H Y for PAIN, #12 TAB 0 Refills Prov:Arnoldo Easton MD 12/18/16 Doxycycline Hyclate (Doxycycline Hyclate) 100 Mg Cap, 100 MG PO BID for Infection for 10 Days, CAP 0 Refills Prov:Arnoldo Easton MD 12/18/16 Sulfamethoxazole-Trimethoprim (Bactrim DS) 800-160 Mg Tab, 1 TAB PO BID for Infection for 10 Days, TAB 0 Refills Prov:Arnoldo Easton MD 12/18/16 Review of Systems Except as stated in HPI: all other systems reviewed are Neg Physical Exam Narrative GENERAL: Well-nourished, well-developed patient. SKIN: Warm and dry. HEAD: Normocephalic and atraumatic. EYES: No scleral icterus. No injection or drainage. ENT: No nasal drainage noted. Mucous membranes pink. Airway patent. NECK: Supple, trachea midline. No JVD. CARDIOVASCULAR: Regular rate and rhythm without murmurs, gallops, or rubs. RESPIRATORY: Breath sounds equal bilaterally. No accessory muscle use. BREASTS: Bilateral exam showed no masses , no retractions, no nipple discharge. ABDOMEN/GI: Abdomen soft, non-tender, bowel sounds present, no rebound, no guarding Gravid GENITOURINARY: External Genitalia: intact and normal in appearance Dilatation: 1 Effacement: long Station: high Presentation: cephalic Membranes: intact Uterine Contractions: irreg FHT's: Category: 1 Reactive: + Variability: mod EXTREMITIES: No cyanosis or edema. BACK: Nontender without obvious deformity. No CVA tenderness. NEUROLOGICAL: Awake and alert. Motor and sensory grossly within normal limits. Five out of 5 muscle strength in all muscle groups. Normal speech. Data Data Vital Signs Reviewed: Yes Orders Orders Ob/Psych Drug Screen, Urine (11/16/17 02:13) Urinalysis - C+S If Indicated (11/16/17 02:13) Nitrofurantoin Monohyd Macrocr (Macrobid (11/16/17 02:30) Lorazepam (Ativan) (11/16/17 02:30) Buprenorphine-Naloxone 8-2 Mg (Buprenorp (11/16/17 02:30) Ceftriaxone Inj (Rocephin Inj) (11/16/17 02:30) Urine Culture (11/16/17 01:45) Supervisor Road Administrator Clear For Discharge (11/16/17 ) Labs Laboratory Tests Test 11/16/17 01:45 Urine Color YELLOW Urine Turbidity HAZY Urine pH 7.5 Urine Specific [place] 1.009 Urine Protein NEG Urine Glucose (UA) NEG Urine Ketones NEG Urine Occult Blood NEG Urine Nitrite NEG Urine Bilirubin NEG Urine Urobilinogen 2.0 Urine Leukocyte Esterase LARGE Urine RBC 19 Urine WBC 57 Urine WBC Clumps FEW Urine Squamous Epithelial Cells 3 Urine Transitional Epithelial Cells <1 Urine Bacteria OCC Urine Mucus FEW Urine Yeast (Budding) OCC Microscopic Urinalysis Comment CULTURE INDICATED Urine Opiates Screen POS Urine Barbiturates Screen NEG Urine Amphetamines Screen NEG Urine Benzodiazepines Screen NEG Urine Cocaine Screen POS Urine Cannabinoids Screen NEG Date/Time Source Procedure Growth Status 11/16/17 01:45 Urine Clean Catch Urine Culture Pending Received [facility] Medical Record Reviewed: Yes Plan pt. w/ uti and opiod withdrawal. pt. to be given 8 of subutex, 1mg ativan and 1gm rocephin im. pt. also given rx for macrobid. pt. to be d/c to home. given precautions for retun all ? answered. f/u as sched. Diagnosis Diagnosis: Primary Impression: Uterine contractions Additional Impressions: UTI (urinary tract infection) Drug withdrawal on maintenance opioid agonist therapy, no symptoms 36 to 37 weeks gestation of Disposition: 01 DISCHARGE HOME Condition: Stable Patient Instructions: General Instructions, Movement (ED), Abdominal Pain in (ED), Urinary Tract Infection in (ED) Additional Instructions: DRINK PLENTY OF WATER DURING THE DAY, RETURN IF LEAKING FLUID, VAGINAL BLEEDING , STRONG CONTRACTIONS OR DECREASE IN MOVEMENT. FOLLOW UP WITH YOUR OB DR IN AM AND KEEP ALL UPCOMING OB APPTS. Departure Forms: Tests/Procedures Mohit Darnell Jr., MD November 16, 2017 03:42
[2017-11-17] MEDS ORDERED: BUPR8SUB SL (11:09)
== END 2017-11-16 03:20 | disposition home or self-care (01) ==
LOC: HOBED 01:24
DX: O47.03 False labor before 37 completed weeks of gestation, third trimester (principal); O23.43 Unspecified infection of urinary tract in pregnancy, third trimester; O99.323 Drug use complicating pregnancy, third trimester; F11.23 Opioid dependence with withdrawal; Z3A.36 36 weeks gestation of pregnancy
CPT/HCPCS: 80307; 81001; 87086; 96372; G0481; J0696

== ENCOUNTER 2017-11-16 17:18 | Inpatient (IN) | payer MEDICAID ==
[2017-11-16] MEDS ORDERED: BUPRENORPHINE HCL 8 MG SUBLINGUAL TAB SL ONE (18:00)
[2017-11-16 18:28] LABS: BACTERIA, URINE RARE /hpf; BILIRUBIN, URINE NEG (NEG); BLOOD, URINE MOD (NEG); GLUCOSE,URINE NEG (NEG); KETONE, URINE NEG (NEG); NITRITE,URINE NEG (NEG); PH, URINE 6.5 (5.0-8.5); SQUAMOUS EPITHELIAL CELL URINE 2 /hpf (0-5); URINE COLOR YELLOW (YELLW/STRAW); URINE LEUKOCYTE ESTERASE LARGE (NEG)
[2017-11-16] MEDS ORDERED: LIDOCAINE HCL 1% 50 ML VIAL I-DERMAL PRN (19:00)
[2017-11-16] MEDS ORDERED: LIDOCAINE HCL 1% 50 ML VIAL INFIL PRN (19:00)
[2017-11-16] MEDS ORDERED: LACTATED RINGER'S 1000 ML INJ 1,000 ML IV PRN (19:00)
[2017-11-16] MEDS ORDERED: OXYTOCIN 30 UNITS-500ML PREMIX 500 ML IV ONE (19:00)
[2017-11-16] MEDS ORDERED: OXYTOCIN 30 UNITS-500ML PREMIX 500 ML IV PRN (19:00)
[2017-11-16] MEDS ORDERED: SODIUM CHLORID 0.9% 500 ML INJ 500 ML IV PRN (19:00)
[2017-11-16] MEDS ORDERED: MINERAL OIL 10 ML VIAL TOPICAL PRN (19:00)
[2017-11-16] MEDS ORDERED: CITRIC ACID-SODIUM CITRATE LIQ 30 ML UDC PO SCH (19:00)
[2017-11-16] MEDS ORDERED: PENICILLIN G POTASSIUM INJ 5,000,000 UNITS in SODIUM CHLORIDE 0.9% INJ 100 ML IV ONE (19:00)
[2017-11-16] MEDS: LACTATED RINGER'S 1000 ML INJ 1,000 ML IV SCH (19:00)
--- NOTE | 2017-11-16 19:00 | HHI.HP ---
HPI Chief Complaint luis fernando at 36+ weeks with active addiction taking subutex in my office since 32 weeks when allowed into practice after hospitalized in labor. Her drug screen is positive for cocaine here at the hospital. She brought her own urine sample in today which was 4+ protein and negative for . She is luis fernando regularly. BPP is 8/8 but her cervix is changing and she needs to be delivered , with this degree of noncompliance and ongoing risk to the . She has had episodes of sepsis with need for right index finger amputation. She is anemic. She has had two term vaginal deliveries and one late delivery. She is considering placing this child for adoption. Date Seen: November 16, 2017 Time Seen: 18:56 Travel History International Travel<30 Days: No Contact w/Intl Traveler<30Days: No Known Affected Area: No History Past Medical History Narrative Medical Severe ongoing polysubstance use disorder. UDS in my office at 32 weeks (point of entry into care) + opiates, cocaine, dilaudid, fentanyl. Family History Family History: Negative Social History Alcohol Use: Yes Tobacco Use: Yes Substance Abuse: Yes Allergies-Medications (Allergen,Severity, Reaction): Coded Allergies: promethazine (Unverified Allergy, Severe, HALLUCINATIONS, N&V, 02/01/17) sulfamethoxazole (Unverified Allergy, Severe, HALLUCINATIONS, N&V, 02/01/17 ) trimethoprim (Unverified Allergy, Severe, HALLUCINATIONS, N&V, 02/01/17) ciprofloxacin (Unverified Allergy, Intermediate, REDDENED ITCHY RASH, 02/01) *MDRO Multi-Drug Resistant Organism (Verified Adverse Reaction, Unknown, MRSA, 12/20/16) MRSA (fluid) - 08/2014 MRSA (foot)-10/15/16 MRSA (finger) - 12/14/16 MRSA Hand 12/15/16 Home Meds Active Scripts Cephalexin (Cephalexin) 500 Mg Cap, 500 MG PO Q12H for Infection for 7 Days, # 14 CAP 0 Refills Prov:Juliann Richey DO 10/07/17 Hydrocodone-Acetaminophen (Exira) 5-325 mg Tab, 1 TAB PO Q6H Y for PAIN, #12 TAB 0 Refills Prov:Arnoldo Easton MD 12/18/16 Doxycycline Hyclate (Doxycycline Hyclate) 100 Mg Cap, 100 MG PO BID for Infection for 10 Days, CAP 0 Refills Prov:Arnoldo Easton MD 12/18/16 Sulfamethoxazole-Trimethoprim (Bactrim DS) 800-160 Mg Tab, 1 TAB PO BID for Infection for 10 Days, TAB 0 Refills Prov:Arnoldo Easton MD 12/18/16 Physical Exam Exam Limitations: Intoxication Narrative GENERAL: Well-nourished, well-developed patient. SKIN: Warm and dry. HEAD: Normocephalic and atraumatic. EYES: No scleral icterus. No injection or drainage. ENT: No nasal drainage noted. Mucous membranes pink. Airway patent. NECK: Supple, trachea midline. No JVD. CARDIOVASCULAR: Regular rate and rhythm without murmurs, gallops, or rubs. RESPIRATORY: Breath sounds equal bilaterally. No accessory muscle use. BREASTS: Bilateral exam showed no masses , no retractions, no nipple discharge. ABDOMEN/GI: Abdomen soft, non-tender, bowel sounds present, no rebound, no guarding 34 cm vertex/ EFW 6 pounds skin has innumerable scars, sores and boils many track and scarred veins. BACK: Nontender without obvious deformity. No CVA tenderness. NEUROLOGICAL: Awake and alert. Motor and sensory grossly within normal limits. Five out of 5 muscle strength in all muscle groups. Normal speech. Caprini VTE Risk Assessment Caprini VTE Risk Assessment: No/Low Risk (score <= 1) Caprini Risk Assessment Model Point Value = 1 Point Value = 2 Point Value = 3 Point Value = 5 Age 41-60 Minor surgery BMI > 25 kg/m2 Swollen legs Varicose veins or History of unexplained or recurrent spontaneous Oral contraceptives or hormone replacement Sepsis (< 1 month) Serious lung disease, including pneumonia (< 1 month) Abnormal pulmonary function Acute myocardial infarction Congestive heart failure (< 1 month) History of inflammatory bowel disease Medical patient at bed rest Age 61-74 Arthroscopic surgery Major open surgery (> 45 min) Laparoscopic surgery (> 45 min) Malignancy Confined to bed (> 72 hours) Immobilizing plaster cast Central venous access Age >= 75 History of VTE Family history of VTE Factor V Leiden Prothrombin [id number] Lupus anticoagulant Anticardiolipin antibodies Elevated serum homocysteine Heparin-induced thrombocytopenia Other congenital or acquired thrombophilia Stroke (< 1 month) Elective arthroplasty Hip, pelvis, or leg fracture Acute spinal cord injury (< 1 month) Prophylaxis Regimen Total Risk Factor Score Risk Level Prophylaxis Regimen 0-1 Low Early ambulation 2 Moderate Order ONE of the following: *Sequential Compression Device (SCD) *Heparin 5000 units SQ BID 3-4 Higher Order ONE of the following medications: *Heparin 5000 units SQ TID *Enoxaparin/Lovenox 40 mg SQ daily (WT < 150 kg, CrCl > 30 mL/min) *Enoxaparin/Lovenox 30 mg SQ daily (WT < 150 kg, CrCl > 10-29 mL/min) *Enoxaparin/Lovenox 30 mg SQ BID (WT < 150 kg, CrCl > 30 mL/min) AND/OR *Sequential Compression Device (SCD) 5 or more Highest Order ONE of the following medications: *Heparin 5000 units SQ TID (Preferred with Epidurals) *Enoxaparin/Lovenox 40 mg SQ daily (WT < 150 kg, CrCl > 30 mL/min) *Enoxaparin/Lovenox 30 mg SQ daily (WT < 150 kg, CrCl > 10-29 mL/min) *Enoxaparin/Lovenox 30 mg SQ BID (WT < 150 kg, CrCl > 30 mL/min) AND *Sequential Compression Device (SCD) Data Data Orders Orders Urinalysis - C+S If Indicated (11/16/17 17:46) Ob/Psych Drug Screen, Urine (11/16/17 17:46) Buprenorphine (Buprenorphine) (11/16/17 18:00) Urine Culture (11/16/17 17:40) Ob (2e) Additional Admit Info (11/16/17 18:37) Vascular Access Team Consult/P PRN (11/16/17 18:39) Vascular Poc Ultrasound (11/16/17 ) Labs Laboratory Tests Test 11/16/17 17:40 Urine Color YELLOW Urine Turbidity HAZY Urine pH 6.5 Urine Specific [place] 1.006 Urine Protein NEG Urine Glucose (UA) NEG Urine Ketones NEG Urine Occult Blood MOD Urine Nitrite NEG Urine Bilirubin NEG Urine Urobilinogen LESS THAN 2.0 Urine Leukocyte Esterase LARGE Urine RBC 17 Urine WBC 22 Urine Squamous Epithelial Cells 2 Urine Bacteria RARE Microscopic Urinalysis Comment CULTURE INDICATED Urine Opiates Screen NEG Urine Barbiturates Screen NEG Urine Amphetamines Screen NEG Urine Benzodiazepines Screen NEG Urine Cocaine Screen POS Urine Cannabinoids Screen NEG Date/Time Source Procedure Growth Status 11/16/17 17:40 Urine Clean Catch Urine Culture Pending Received Assessment/Plan Assessment and Plan 36+ week IUP with polysubstance use. in labor with +cocaine on hospital UDS will continue subutex 8 mg TID arom and anticipate healthy start and case managment Leah Sheriff MD November 16, 2017 19:00
[2017-11-16] MEDS ORDERED: SODIUM CHLOR 0.9% 1000 ML INJ 1,000 ML IV PRN (19:20)
[2017-11-16] MEDS ORDERED: fentaNYL 2MCG-BUPIV 0.125% INJ 150 ML EPIDURAL ONE (19:41)
[2017-11-16] MEDS ORDERED: ePHEDrine/NS 25 MG/5 ML SYRINGE ONE (19:41)
[2017-11-16 20:07] LABS: AUTOMATED NEUTROPHIL # 5.5 TH/MM3 (1.8-7.7); BASOPHIL % 0.3 % (0.0-2.0); EOSINOPHIL # 0.1 TH/MM3 (0-0.4); EOSINOPHIL % 1.4 % (0.0-4.0); HEMATOCRIT 30.3 % (35.0-46.0); HEMOGLOBIN 10.3 GM/DL (11.6-15.3); LYMPH % 15.9 % (9.0-44.0); LYMPHOCYTE # 1.1 TH/MM3 (1.0-4.8); MEAN CELL VOLUME 81.8 FL (80.0-100.0); MEAN CORPUSCULAR HEMOGLOBIN 27.8 PG (27.0-34.0); MEAN PLATELET VOLUME 8.8 FL (7.0-11.0); MONO % 4.6 % (0.0-8.0); MONOCYTE # 0.3 TH/MM3 (0-0.9); NEUT % 77.8 % (16.0-70.0); PLATELET COUNT 152 TH/MM3 (150-450); RED CELL DISTRIBUTION WIDTH 15.7 % (11.6-17.2)
[2017-11-16] MEDS ORDERED: BUPRENORPHINE HCL 8 MG SUBLINGUAL TAB SL SCH (22:00)
[2017-11-16] MEDS ORDERED: DO NOT ADMINISTER ANTICOAGULANTS PRN (22:30)
[2017-11-16] MEDS ORDERED: NO SYSTEM NARCOTICS PRN (22:30)
[2017-11-16] MEDS ORDERED: fentaNYL 2MCG-BUPIV 0.125% 150 ML EPIDURAL PRN (22:30)
[2017-11-16] MEDS ORDERED: ePHEDrine/NS 25 MG/5 ML SYRINGE IV PUSH PRN (22:30)
[2017-11-16] MEDS ORDERED: PENICILLIN G POTASSIUM INJ 2,500,000 UNITS in SODIUM CHLORIDE 0.9% INJ 100 ML IV SCH (23:00)
[2017-11-17] MEDS: PENICILLIN G POTASSIUM INJ 2,500,000 UNITS in SODIUM CHLORIDE 0.9% INJ 100 ML IV SCH ×2 (00:40→04:41)
--- NOTE | 2017-11-17 01:03 | PD.LABORPN ---
Subjective Subjective sleeping soundly since epidural strip 120s with BTBV adequate regular UCS on low dose pitocin will continue anticipate Objective Vital Signs Vital Signs Date Time Temp Pulse Resp B/P (MAP) Pulse Ox O2 Delivery O2 Flow Rate FiO2 11/16/17 23:15 16 Objective Pelvic Exam: Cervix: [-] Dilatation: [-] Effacement: [-] Station: [-] Presentation: [-] Membranes: [intact or ruptured] Uterine Contractions: [-] FHT's: Category: [-] Baseline: [-] Reactive: [-] Variability: [-] Decels: [-] Leah Sheriff MD November 17, 2017 01:03
[2017-11-17] MEDS: BUPRENORPHINE HCL 8 MG SUBLINGUAL TAB SL SCH ×3 (02:27→18:18)
[2017-11-17] MEDS: LACTATED RINGER'S 1000 ML INJ 1,000 ML IV SCH ×2 (02:28→04:41)
[2017-11-17] MEDS: LORazepam 1 MG TAB PO PRN ×2 (08:30→16:22)
[2017-11-17] MEDS ORDERED: BUPR8SUB SL (11:09)
--- NOTE | 2017-11-17 11:09 | HHI.DCPOC ---
Discharge Care Plan Report Symptoms to Your Doctor -Temperature above 100.5 degrees -Redness, of incision or excessive or foul smelling drainage -Unusual pain or calf pain -Increased vaginal bleeding -Painful or difficulty urinating -Feelings of extreme sadness or anxiety after 2 weeks Goals to Promote Your Health * To prevent worsening of your condition and complications * To maintain your health at the optimal level Directions to Meet Your Goals Take your medications as prescribed Follow your dietary instruction Follow activity as directed Ensure plenty of rest for recovery Drink fluids for hydration Keep your appointments as scheduled Take your immunizations and boosters as scheduled If your symptoms worsen call your PCP, if no PCP go to Urgent Care Center or Emergency Room Smoking is Dangerous to Your Health. Avoid second hand smoke Call the 24-hour crisis hotline for domestic abuse at Leah Sheriff MD November 17, 2017 11:09
--- NOTE | 2017-11-17 12:18 | PD.PSY.CON ---
Provisional Diagnosis Admission Date November 16, 2017 at 18:41 History of Present Illness Service Psychiatry Consult Requested By OBG Reason for Consult Bipolar disorder Primary Care Physician No Primary Care Physician Past Family Social History Coded Allergies: promethazine (Unverified Allergy, Severe, HALLUCINATIONS, N&V, 02/01/17) sulfamethoxazole (Unverified Allergy, Severe, HALLUCINATIONS, N&V, 02/01/17 ) trimethoprim (Unverified Allergy, Severe, HALLUCINATIONS, N&V, 02/01/17) ciprofloxacin (Unverified Allergy, Intermediate, REDDENED ITCHY RASH, 02/01) *MDRO Multi-Drug Resistant Organism (Verified Adverse Reaction, Unknown, MRSA, 12/20/16) MRSA (fluid) - 08/2014 MRSA (foot)-10/15/16 MRSA (finger) - 12/14/16 MRSA Hand 12/15/16 Active Scripts Buprenorphine (Buprenorphine) 8 Mg Subl, 8 MG SL Q8H for maintenance for 14 Days , #42 TAB Prov:Leah Sheriff MD 11/17/17 Cephalexin (Cephalexin) 500 Mg Cap, 500 MG PO Q12H for Infection for 7 Days, # 14 CAP 0 Refills Prov:Juliann Richey DO 10/07/17 Hydrocodone-Acetaminophen ([place]) 5-325 mg Tab, 1 TAB PO Q6H Y for PAIN, #12 TAB 0 Refills Prov:Arnoldo Easton MD 12/18/16 Doxycycline Hyclate (Doxycycline Hyclate) 100 Mg Cap, 100 MG PO BID for Infection for 10 Days, CAP 0 Refills Prov:Arnoldo Easton MD 12/18/16 Sulfamethoxazole-Trimethoprim (Bactrim DS) 800-160 Mg Tab, 1 TAB PO BID for Infection for 10 Days, TAB 0 Refills Prov:Arnoldo Easton MD 12/18/16 Current Medications Medications (Trade) Dose Ordered Sig/Deborah Route Start Time Stop Time Status Last Admin Lactated Ringer's 1,000 ml @ 125 mls/hr Q8H IV 11/16/17 19:00 11/17/17 04:41 Lactated Ringer's 1,000 ml @ 3,000 mls/hr Q20M PRN IV 11/16/17 19:00 Sodium Chloride 500 ml @ 1,000 mls/hr ONCE PRN IV 11/16/17 19:00 12/07/17 18:59 Sodium Chloride 1,000 ml @ 100 mls/hr Q10H PRN IV 11/16/17 19:20 (Xylocaine 1% Inj (50 ml)) 0.1 ml UNSCH X1 PRN I-DERMAL 11/16/17 19:00 11/19/17 18:59 (Bicitra Liq) 30 ml EN[employer]MENT[employer]SERV[employer] OFFICER PO 11/16/17 19:00 11/20/17 18:59 (fentaNYL INJ) 50 mcg Q1H PRN IV PUSH 11/16/17 19:00 (fentaNYL INJ) 100 mcg Q1H PRN IV PUSH 11/16/17 19:00 (Xylocaine 1% Inj (50 ml)) 10 ml UNSCH X1 PRN INFIL 11/16/17 19:00 11/18/17 18:59 (Muri-Lube Oil) 10 ml UNSCH PRN TOPICAL 11/16/17 19:00 Oxytocin 500 ml @ 0 mls/hr TITRATE PRN IV 11/16/17 19:00 11/16/17 23:14 ([facility]) No systemic narcotics to be given except... UNSCH PRN .XX 11/16/17 22:30 11/17/17 22:29 ([facility]) DO NOT ADMINISTER ANY ANTICOAGUL... UNSCH PRN .XX 11/16/17 22:30 11/17/17 22:29 Fentanyl/ Bupivacaine/ Sodium Chlor 150 ml @ 0 mls/hr TITRATE PRN EPIDURAL 11/16/17 22:30 11/16/17 23:15 (ePHEDrine/NS 25 MG/5 ML SYR) 10 mg UNSCH PRN IV PUSH 11/16/17 22:30 11/17/17 22:29 Penicillin G Potassium [id number] units/Sodium Chloride 100 ml @ 200 mls/hr Q4H IV 11/17/17 00:00 11/17/17 04:41 (Buprenorphine) 8 mg Q8H SL 11/17/17 02:15 11/17/17 10:12 (Ativan) 1 mg Q8H PRN PO 11/17/17 08:00 11/17/17 08:30 Physical Exam Vital Signs Vital Signs Date Time Temp Pulse Resp B/P (MAP) Pulse Ox O2 Delivery O2 Flow Rate FiO2 11/16/17 23:15 16 Lab Results Test 11/16/17 17:40 11/16/17 19:25 Urine Color YELLOW Urine Turbidity HAZY Urine pH 6.5 Urine Specific [place] 1.006 Urine Protein NEG mg/dL Urine Glucose (UA) NEG mg/dL Urine Ketones NEG mg/dL Urine Occult Blood MOD Urine Nitrite NEG Urine Bilirubin NEG Urine Urobilinogen LESS THAN 2.0 MG/DL Urine Leukocyte Esterase LARGE Urine RBC 17 /hpf Urine WBC 22 /hpf Urine Squamous Epithelial Cells 2 /hpf Urine Bacteria RARE /hpf Microscopic Urinalysis Comment CULTURE INDICATED Urine Opiates Screen NEG Urine Barbiturates Screen NEG Urine Amphetamines Screen NEG Urine Benzodiazepines Screen NEG Urine Cocaine Screen POS Urine Cannabinoids Screen NEG White Blood Count 7.0 TH/MM3 Red Blood Count 3.70 MIL/MM3 Hemoglobin 10.3 GM/DL Hematocrit 30.3 % Mean Corpuscular Volume 81.8 FL Mean Corpuscular Hemoglobin 27.8 PG Mean Corpuscular Hemoglobin Concent 34.0 % Red Cell Distribution Width 15.7 % Platelet Count 152 TH/MM3 Mean Platelet Volume 8.8 FL Neutrophils (%) (Auto) 77.8 % Lymphocytes (%) (Auto) 15.9 % Monocytes (%) (Auto) 4.6 % Eosinophils (%) (Auto) 1.4 % Basophils (%) (Auto) 0.3 % Neutrophils # (Auto) 5.5 TH/MM3 Lymphocytes # (Auto) 1.1 TH/MM3 Monocytes # (Auto) 0.3 TH/MM3 Eosinophils # (Auto) 0.1 TH/MM3 Basophils # (Auto) 0.0 TH/MM3 CBC Comment DIFF FINAL Differential Comment Date/Time Source Procedure Growth Status 11/16/17 17:40 Urine Clean Catch Urine Culture Pending Received Assessment & Plan Problem List: (1) IV drug user ICD Codes: F19.90 - Other psychoactive substance use, unspecified, uncomplicated Status: Acute Assessment & Plan: I have visited the patient for psychiatric evaluation. The patient is found in acute pain and distress. The patient wishes to be evaluated psychiatrically in another moment. I will come later on to continue with a psychiatric evaluation. Assessment & Plan Estimated LOS: Austen Castillo MD November 17, 2017 12:18
[2017-11-17 20:36] VITALS: BP 145/55; PULSE 65; RESP 18; TEMP 98.1
[2017-11-18] MEDS: LORazepam 1 MG TAB PO PRN ×2 (00:23→08:45)
[2017-11-18] MEDS: BUPRENORPHINE HCL 8 MG SUBLINGUAL TAB SL SCH ×2 (02:31→08:54)
--- NOTE | 2017-11-18 08:42 | HHI.OB ---
Subjective Post Day: 1 Remarks sobutex pt, pt resting, responds to questions, adopting out Objective Vitals/I&O Vital Signs Date Time Temp Pulse Resp B/P (MAP) Pulse Ox O2 Delivery O2 Flow Rate FiO2 11/17/17 20:36 98.1 65 18 145/55 (85) Objective Remarks GENERAL: Well-nourished, well-developed patient. CARDIOVASCULAR: Regular rate and rhythm without murmurs, gallops, or rubs. RESPIRATORY: Breath sounds equal bilaterally. No accessory muscle use. ABDOMEN/GI: Abdomen soft, non-tender. Fundus: Firm, non-tender at umbilicus. GENITOURINARY: Light to moderate bleeding. EXTREMITIES: No cyanosis or edema, non-tender, without signs of DVT. Medications and IVs Current Medications Medications (Trade) Dose Ordered Sig/Deborah Route Start Time Stop Time Status Last Admin Lactated Ringer's 1,000 ml @ 125 mls/hr Q8H IV 11/16/17 19:00 11/17/17 04:41 Lactated Ringer's 1,000 ml @ 3,000 mls/hr Q20M PRN IV 11/16/17 19:00 Sodium Chloride 500 ml @ 1,000 mls/hr ONCE PRN IV 11/16/17 19:00 12/07/17 18:59 Sodium Chloride 1,000 ml @ 100 mls/hr Q10H PRN IV 11/16/17 19:20 (Xylocaine 1% Inj (50 ml)) 0.1 ml UNSCH X1 PRN I-DERMAL 11/16/17 19:00 11/19/17 18:59 (Bicitra Liq) 30 ml MACHINE LEATHER TRIMMER PO 11/16/17 19:00 11/20/17 18:59 (fentaNYL INJ) 50 mcg Q1H PRN IV PUSH 11/16/17 19:00 (fentaNYL INJ) 100 mcg Q1H PRN IV PUSH 11/16/17 19:00 (Xylocaine 1% Inj (50 ml)) 10 ml UNSCH X1 PRN INFIL 11/16/17 19:00 11/18/17 18:59 (Muri-Lube Oil) 10 ml UNSCH PRN TOPICAL 11/16/17 19:00 Oxytocin 500 ml @ 0 mls/hr TITRATE PRN IV 11/16/17 19:00 11/16/17 23:14 Fentanyl/ Bupivacaine/ Sodium Chlor 150 ml @ 0 mls/hr TITRATE PRN EPIDURAL 11/16/17 22:30 11/16/17 23:15 Penicillin G Potassium [id number] units/Sodium Chloride 100 ml @ 200 mls/hr Q4H IV 11/17/17 00:00 11/17/17 04:41 (Buprenorphine) 8 mg Q8H SL 11/17/17 02:15 11/18/17 02:31 (Ativan) 1 mg Q8H PRN PO 11/17/17 08:00 11/18/17 00:23 Assessment/Plan Assessment and Plan 36+ week IUP with polysubstance use. s/p PPD #1 with +cocaine on hospital UDS will continue subutex 8 mg TID, ativan prn healthy start and case managment Discharge Planning routine Attending Attestation pt seen by Shona Bateman MD Nov 18, 2017 08:42
--- NOTE | 2017-11-18 12:23 | PD.PSY.CON ---
Provisional Diagnosis Admission Date November 16, 2017 at 18:41 [place]. Polysubstance dependence,r/o substance-induced mood disorder, r/o bipolar disorder [place] [facility]. Unspecified personality disorder, cluster B traits [place] [facility]. Hepatitis C, History of Present Illness Service Psychiatry Consult Requested By OBG Reason for Consult Psychiatric assessment Primary Care Physician No Primary Care Physician HPI The patient is a 27-year-old woman, domiciled along in [facility], single , unemployed, poor family and social support, with psychiatric history of polysubstance dependence including heroin, cocaine, she is now on Subutex 8 mg 3 times daily, she is an IV drug user, with medical history of hepatitis C, 36+ week IUP. s/p PPD #1 with +cocaine on hospital UDS, who was consulted to psychiatry to address potential treatment of bipolar disorder based in patient psychiatric history. The patient was tried to be evaluated yesterday, she was found in pain, quite irritable and oppositional and refused to talk to me. Today I revisited the patient early in the morning, she was found sleeping but easily arousable. Once I presented myself with a psychiatrist, the patient became quite resistant, oppositional and irritable. She reports that she has been feeling very tired, on pain, "how I am supposed to feel". During my interview she was called by phone by somebody, she has spent several minutes talking with that person. Immediately after the conversation the patient states that she prefers not to talk to me. Patient reports that she does not have any psychiatric needs, she has been doing fine, she has plans for the future as, she denies depressive symptoms, denies anxiety, she denies suicidal enemas ideation, she denies visual and auditory hallucinations at the moment. The patient reports that she has being sober for about 4 months, just taking her Subutex. I confronted her regarding her positive cocaine, but she denies using drugs. She reports that she has never tried to commit suicide in the past , she denies previous psychiatric hospitalizations, denies self cutting behavior. She says that her main problem in life has been drugs, "but I really feel the Subutex is working okay with me". The patient is fully oriented 3. I spoke with Dr. Sheriff yesterday, she says that the reason she placed a consult to psychiatry is because other than using drugs all the time the patient also has been present him with what seems to be mood symptoms. In her opinion the patient uses drugs for self treatment. She has been thinking in place and the patient in Depakote 500 mg twice daily to help the patient stabilize her mood. Review of Systems Constitutional: DENIES: Diaphoretic episodes, Fatigue, Fever, Weight gain, Weight loss, Chills, Dizziness, Change in appetite, Night Sweats Endocrine: DENIES: Abnorml menstrual pattern, Heat/cold intolerance, Polydipsia , Polyuria, Polyphagia Eyes: DENIES: Blurred vision, Diplopia, Eye inflammation, Eye pain, Vision loss , Photosensitivity, Double Vision Ears, nose, mouth, throat: DENIES: Tinnitus, Hearing loss, Vertigo, Nasal discharge, Oral lesions, Throat pain, Hoarseness, Ear Pain, Running Nose, Epistaxis, Sinus Pain, Toothache, Odynophagia Respiratory: DENIES: Apneas, Cough, Snoring, Wheezing, Hemoptysis, Sputum production, Shortness of breath Cardiovascular: DENIES: Chest pain, Palpitations, Syncope, Dyspnea on Exertion , PND, Lower Extremity Edema, Orthopnea, Claudication Gastrointestinal: DENIES: Abdominal pain, Black stools, Bloody stools, Constipation, Diarrhea, Nausea, Vomiting, Difficulty Swallowing, Anorexia Genitourinary: DENIES: Abnormal vaginal bleeding, Dysmenorrhea, Dyspareunia, Sexual dysfunction, Urinary frequency, Urinary incontinence, Urgency, Hematuria , Dysuria, Nocturia, Vaginal discharge Musculoskeletal: DENIES: Joint pain, Muscle aches, Stiffness, Joint Swelling, Back pain, Neck pain Integumentary: DENIES: Abnormal pigmentation, Pruritus, Rash, Nail changes, Breast masses, Breast skin changes, Nipple discharge Hematologic/lymphatic: DENIES: Bruising, Lymphadenopathy Immunologic/allergic: DENIES: Eczema, Urticaria Neurologic: DENIES: Abnormal gait, Headache, Localized weakness, Paresthesias, Seizures, Speech Problems, Tremor, Poor Balance Psychiatric: COMPLAINS OF: Mood changes, DENIES: Anxiety, Confusion, Depression , Hallucinations, Agitation, Suicidal Ideation, Homicidal Ideation, Delusions Past Family Social History Coded Allergies: promethazine (Unverified Allergy, Severe, HALLUCINATIONS, N&V, 02/01/17) sulfamethoxazole (Unverified Allergy, Severe, HALLUCINATIONS, N&V, 02/01/17 ) trimethoprim (Unverified Allergy, Severe, HALLUCINATIONS, N&V, 02/01/17) ciprofloxacin (Unverified Allergy, Intermediate, REDDENED ITCHY RASH, 02/01) *MDRO Multi-Drug Resistant Organism (Verified Adverse Reaction, Unknown, MRSA, 12/20/16) MRSA (fluid) - 08/2014 MRSA (foot)-10/15/16 MRSA (finger) - 12/14/16 MRSA Hand 12/15/16 Active Scripts Buprenorphine (Buprenorphine) 8 Mg Subl, 8 MG SL Q8H for maintenance for 14 Days , #42 TAB Prov:Leah Sheriff MD 11/17/17 Discontinued Scripts Cephalexin (Cephalexin) 500 Mg Cap, 500 MG PO Q12H for Infection for 7 Days, # 14 CAP 0 Refills Prov:Juliann Richey DO 10/07/17 Hydrocodone-Acetaminophen (Turon) 5-325 mg Tab, 1 TAB PO Q6H Y for PAIN, #12 TAB 0 Refills Prov:Arnoldo Easton MD 12/18/16 Doxycycline Hyclate (Doxycycline Hyclate) 100 Mg Cap, 100 MG PO BID for Infection for 10 Days, CAP 0 Refills Prov:Arnoldo Easton MD 12/18/16 Sulfamethoxazole-Trimethoprim (Bactrim DS) 800-160 Mg Tab, 1 TAB PO BID for Infection for 10 Days, TAB 0 Refills Prov:Arnoldo Easton MD 12/18/16 Current Medications Medications (Trade) Dose Ordered Sig/Deborah Route Start Time Stop Time Status Last Admin Lactated Ringer's 1,000 ml @ 125 mls/hr Q8H IV 11/16/17 19:00 11/17/17 04:41 Lactated Ringer's 1,000 ml @ 3,000 mls/hr Q20M PRN IV 11/16/17 19:00 Sodium Chloride 500 ml @ 1,000 mls/hr ONCE PRN IV 11/16/17 19:00 12/07/17 18:59 Sodium Chloride 1,000 ml @ 100 mls/hr Q10H PRN IV 11/16/17 19:20 (Xylocaine 1% Inj (50 ml)) 0.1 ml UNSCH X1 PRN I-DERMAL 11/16/17 19:00 11/19/17 18:59 (Bicitra Liq) 30 ml HAND FUR CLEANER PO 11/16/17 19:00 11/20/17 18:59 (fentaNYL INJ) 50 mcg Q1H PRN IV PUSH 11/16/17 19:00 (fentaNYL INJ) 100 mcg Q1H PRN IV PUSH 11/16/17 19:00 (Xylocaine 1% Inj (50 ml)) 10 ml UNSCH X1 PRN INFIL 11/16/17 19:00 11/18/17 18:59 (Muri-Lube Oil) 10 ml UNSCH PRN TOPICAL 11/16/17 19:00 Oxytocin 500 ml @ 0 mls/hr TITRATE PRN IV 11/16/17 19:00 11/16/17 23:14 Fentanyl/ Bupivacaine/ Sodium Chlor 150 ml @ 0 mls/hr TITRATE PRN EPIDURAL 11/16/17 22:30 11/16/17 23:15 Penicillin G Potassium [id number] units/Sodium Chloride 100 ml @ 200 mls/hr Q4H IV 11/17/17 00:00 11/17/17 04:41 (Buprenorphine) 8 mg Q8H SL 11/17/17 02:15 11/18/17 08:54 (Ativan) 1 mg Q8H PRN PO 11/17/17 08:00 11/18/17 08:45 Family Psych History She denies family psychiatric history Social History Patient was born and raised in [place], she lives in [facility], she is single, unemployed, she has some college credits Patient's Strengths (min. 2) Patient is on Subutex for her heroine use Physical Exam No tremors, no EPS, stiffness present Vital Signs Vital Signs Date Time Temp Pulse Resp B/P (MAP) Pulse Ox O2 Delivery O2 Flow Rate FiO2 11/17/17 20:36 98.1 65 18 145/55 (85) Lab Results Date/Time Source Procedure Growth Status 11/16/17 17:40 Urine Clean Catch Urine Culture - Final <10,000 CFU/ML MIXED GRAM POSITIVE FL... Complete Mental Status Examination Appearance: Appropriate Consciousness: Alert Orientation: x4 Motor Activity: Normal gait Speech: Unremarkable Language: Adequate Fund of Knowledge: Adequate Attention and Concentration: Adequate Memory: Unremarkable Mood: Angry Affect: Irritable Thought Process & Associations: Intact Thought Content: Appropriate Hallucination Type: None Delusion Type: None Suicidal Ideation: No Suicidal Plan: No Suicidal Intention: No Homicidal Ideation: No Homicidal Plan: No Homicidal Intention: No Insight: Fair Judgment: Impulsive Assessment & Plan Problem List: (1) IV drug user ICD Codes: F19.90 - Other psychoactive substance use, unspecified, uncomplicated Status: Acute (2) Polysubstance dependence ICD Codes: F19.20 - Other psychoactive substance dependence, uncomplicated Assessment & Plan: On psychiatric evaluation today the patient presents oppositional, irritable, resistant to cooperate with the interview. The patient is quite reticent and selective in her answers. This is my second visit to this patient in 2 days, yesterday he refused to talk to me alleging that she was on acute pain. Today the patient reports that she does not have any more symptoms, that her main problem is pain and feeling tired, she denies having any psychiatric problem, denies previous psychiatric hospitalizations, denies previous suicidal attempts, she denies mood symptoms at this moment, denies SI, denies HI, denies peaceful and auditory hallucinations. The patient has an extensive history of polysubstance dependence including IV heroin, cocaine and she has being on Subutex 8 mg 3 times daily for some months now. Is very difficult for me to complete the psychiatric evaluation and provide a diagnosis without the cooperation of the patient and the right collateral information, but based in revision of EMR, she has multiple visits to [place], and conversation with Dr. Sheriff the patient does present frequent mood swings, reckless behavior, poor impulse control, poor coping skills, increased sensitivity to frustration rejection, inability to delay gratification, bipolar disorder vs personality disorder in the cluster B spectrum ordered to psychiatric diagnosis to be investigated in this patient. For both of them, medications such as Abilify, which has a depot presentation, Seroquel and Depakote could be beneficial if patient agree with close follow-up with a mental health professional. She does not meet criteria for involuntary psychiatric admission at this moment. I will try to revisit the patient again Tuesday if she is still here. Consult appreciated. Assessment & Plan Estimated LOS: Austen Castillo MD Nov 18, 2017 12:23
--- NOTE | 2017-11-24 11:28 | PD.OB.DELI ---
Weeks gestation: 36 Pt started active labor?: Yes Medical induction of labor?: Yes Artificial rupture of membrane: Yes Anesthesia: Epidural Episiotomy: None Vaginal Delivery: Normal Nuchal Cord: None Delayed cord clamping (45 sec): Yes : Male Delivery date: November 17, 2017 Delivery time: 05:00 One Minute : 8 Ten Minute : 9 Weight: 7 Placenta: Spontaneous delivery Laceration: No lacerations Estimated blood loss: 200 Leah Sheriff MD Nov 24, 2017 11:28
== END 2017-11-18 18:52 | disposition home or self-care (01) | DRG 775 ==
LOC: HOBED 17:18 → H2EB 18:41 → H1EA 11-17 07:44
PROVIDERS: ADMIT Obstetrics & Gynecology; ATTEND Obstetrics & Gynecology
PROC: 10907ZC Drainage of Amniotic Fluid, Therapeutic from Products of Conception, Via Natural or Artificial Opening (ICD-10-PCS; principal; 2017-11-16)
PROC: 3E0R3BZ Introduction of Anesthetic Agent into Spinal Canal, Percutaneous Approach (ICD-10-PCS; 2017-11-16)
PROC: 00HU33Z Insertion of Infusion Device into Spinal Canal, Percutaneous Approach (ICD-10-PCS; 2017-11-16)
PROC: 10E0XZZ Delivery of Products of Conception, External Approach (ICD-10-PCS; 2017-11-17)
DX: O60.14X0 Preterm labor third trimester with preterm delivery third trimester, not applicable or unspecified (principal); O99.324 Drug use complicating childbirth; Z37.0 Single live birth; Z3A.36 36 weeks gestation of pregnancy; F19.10 Other psychoactive substance abuse, uncomplicated; Z86.19 Personal history of other infectious and parasitic diseases
CPT/HCPCS: 59025; 76937; 80307; 81001; 85025; 87086; 96372; 96374; G0481; J0696; J2540; J2590; J7120